=== PATIENT | female | born 1945 | race Caucasian/White ===

== ENCOUNTER 2017-02-26 15:02 | Emergency (ER) | payer MEDICARE, MEDICAID ==
[2017-02-26 15:18] VITALS: BP 140/68
--- NOTE | 2017-02-26 15:30 | UC ---
General HPI - HPI Summary HPI Summary: complaint of small rash on abdomen was outside all day and then noticed a tick stuck to abdomen this morning removed tick and was worried that the head was still in skin hx of lyme disease so she is very anxious that she may get it again - History of Current Complaint Chief Complaint: ROBkin Stated Complaint: INSECT BITE Time Seen by Provider: 02/26/17 15:20 Hx Obtained From: Patient - Allergy/Home Medications Allergies/Adverse Reactions: Allergies Allergy/AdvReac Type Severity Reaction Status Date / Time Albuterol Allergy Agitation Verified 02/26/17 15:13 Penicillins Allergy Unknown Verified 02/26/17 15:13 Reaction Details Sulfa Antibiotics Allergy Vomiting Verified 02/26/17 15:13 Home Medications: Home Medications ALPRAZolam TAB* [Xanax TAB*] 0.5 mg PO TID PRN 02/26/17 [History Confirmed 02/26] Aspirin [Aspirin 81 MG TAB] 81 mg PO DAILY 02/26/17 [History Confirmed 02/26/17] Levothyroxine TAB* [Synthroid 88 MCG TAB*] 88 mcg PO DAILY 02/26/17 [History Confirmed 02/26/17] Loratadine [Claritin 10 MG CAP] 10 mg PO DAILY 02/26/17 [History Confirmed 02/26] Multivitamins/Minerals TAB* [Theragran/minerals TAB*] 1 tab PO DAILY 02/26/17 [ History Confirmed 02/26/17] Omeprazole CAP* [Prilosec CAP* 20 MG] 40 mg PO DAILY 02/26/17 [History Confirmed 02/26/17] Sitagliptin/Metform 50/500(NF) [Janumet 50/500 (NF)] 1 tab PO DAILY 02/26/17 [ History Confirmed 02/26/17] PMH/Surg Hx/FS Hx/Imm Hx Previously Healthy: Yes Endocrine History: Diabetes, Hypothyroidism, Dyslipidemia - Surgical History Surgical History: Yes Surgery Procedure, Year, and Place: Appy. left knee - Family History Known Family History: Negative: Cardiac Disease, Hypertension, Diabetes - Social History Occupation: Employed Full-time Lives: With Family Alcohol Use: Rare Substance Use Type: None Smoking Status (MU): Never Smoked Tobacco - Immunization History Most Recent Tetanus Shot: 01/22/15 Review of Systems Constitutional: Negative Skin: Rash Eyes: Negative ENT: Negative Respiratory: Negative Cardiovascular: Negative Gastrointestinal: Negative Genitourinary: Negative Motor: Negative Neurovascular: Negative Musculoskeletal: Negative Neurological: Negative Psychological: Negative All Other Systems Reviewed And Are Negative: Yes Physical Exam Triage Information Reviewed: Yes Appearance: No Pain Distress, Well-Nourished Vital Signs: Initial Vital Signs Temp 97.7 F 02/26/17 15:08 Pulse 91 02/26/17 15:08 Resp 16 02/26/17 15:08 BP 140/68 02/26/17 15:08 Pulse Ox 98 02/26/17 15:08 Vital Signs Reviewed: Yes Eyes: Positive: Conjunctiva Clear ENT: Positive: Pharynx normal, TMs normal Neck: Positive: No Lymphadenopathy Respiratory: Positive: Lungs clear, Normal breath sounds, No respiratory distress Cardiovascular: Positive: RRR, No Murmur, Pulses Normal Abdomen Description: Positive: Nontender, Soft Bowel Sounds: Positive: Present Musculoskeletal: Positive: No Edema Neurological: Positive: Alert Psychological Exam: Normal Skin: Positive: Other - abdomen- 3x3cm erythematous flat rash surrounding tick bite site- no tick parts remain in wound 1x2cm area of erythema flat rash surrounding insect bite Course/Dx - Course Course Of Treatment: exam completed. will give doxycycline as prophylactic prevention of lyme disease - Differential Dx - Multi-Symptom Provider Diagnoses: tick bite. elevated blood pressure Discharge - Discharge Plan Condition: Stable Disposition: HOME Prescriptions: DOXYcycline CAP(*) [DOXYcycline 100MG CAP(*)] 100 mg PO DAILY #2 cap Patient Education Materials: Tick Bite (ED) Referrals: Aishwarya Cheung NP [Primary Care Provider] - Additional Instructions: Please start antibiotic as directed Increase fluids and rest Take acetaminophen or ibuprofen for fever or pain Please review your discharge instructions. If your symptoms do not improve please call your primary care provider or return to urgent care. Your blood pressure is elevated. Please contact your primary care provider within 1 -4 weeks for further evaluation
== END 2017-02-26 15:45 | disposition home or self-care (01) ==
LOC: UCCORT 15:02
DX: S30.861A Insect bite (nonvenomous) of abdominal wall, initial encounter (principal); W57.XXXA Bitten or stung by nonvenomous insect and other nonvenomous arthropods, initial encounter; Y92.9 Unspecified place or not applicable; E11.9 Type 2 diabetes mellitus without complications; E03.9 Hypothyroidism, unspecified; E78.5 Hyperlipidemia, unspecified
CPT/HCPCS: 99212; G0463

== ENCOUNTER 2017-04-10 11:33 | Emergency (ER) | payer MEDICARE, MEDICAID ==
[2017-04-10 12:02] VITALS: BP 130/54
--- NOTE | 2017-04-10 12:36 | UC ---
Lower Extremity/Ankle HPI - HPI Summary HPI Summary: 71 yo female with right calf pain x 6 days no trauma no recent travel no cp or sob - History of Current Complaint Chief Complaint: UCLowerExtremity Stated Complaint: RIGHT LEG PAIN-CALF X6 DAYS Time Seen by Provider: 04/10/17 12:19 Hx Obtained From: Patient Onset/Duration: Gradual Onset, Lasting Days - 6 Severity Initially: Mild Severity Currently: Moderate Pain Intensity: 6 Pain Scale Used: 0-10 Numeric Aggravating Factor(s): Nothing Alleviating Factor(s): Nothing Able to Bear Weight: Yes - Allergies/Home Medications Allergies/Adverse Reactions: Allergies Allergy/AdvReac Type Severity Reaction Status Date / Time Albuterol Allergy Agitation Verified 04/10/17 12:02 Penicillins Allergy Unknown Verified 04/10/17 12:02 Reaction Details Sulfa Antibiotics Allergy Vomiting Verified 04/10/17 12:02 grass mowing Allergy Swelling Uncoded 04/10/17 12:02 Of Face,Lips,& Throat Home Medications: Home Medications Methylcellulose (Laxative) [Fiber Therapy] 500 mg PO BID 04/10/17 [History Confirmed 04/10/17] PMH/Surg Hx/FS Hx/Imm Hx Previously Healthy: Yes Endocrine History: Diabetes - Surgical History Surgical History: Yes Surgery Procedure, Year, and Place: Appy. left knee - Family History Known Family History: Positive: Hypertension, Diabetes, Other - breast and colon Ca Negative: Cardiac Disease - Social History Alcohol Use: Rare Substance Use Type: None Smoking Status (MU): Former Smoker When Did the Patient Quit Smoking/Using Tobacco: 2009 - Immunization History Most Recent Tetanus Shot: 01/22/15 Review of Systems Constitutional: Negative Skin: Negative Eyes: Negative ENT: Negative Respiratory: Negative Cardiovascular: Negative Gastrointestinal: Negative Genitourinary: Negative Motor: Negative Neurovascular: Negative Musculoskeletal: Myalgia Neurological: Negative Psychological: Negative All Other Systems Reviewed And Are Negative: Yes Physical Exam Triage Information Reviewed: Yes Appearance: Well-Appearing, No Pain Distress, Well-Nourished Vital Signs: Initial Vital Signs Temp 99 F 04/10/17 11:54 Pulse 85 04/10/17 11:54 Resp 20 04/10/17 11:54 BP 130/54 04/10/17 11:54 Vital Signs Reviewed: Yes Eyes: Positive: Conjunctiva Clear ENT: Positive: Hearing grossly normal. Negative: Nasal congestion, Nasal drainage, Trismus, Muffled/hoarse voice Neck: Positive: Supple, Nontender Respiratory: Positive: Lungs clear, Normal breath sounds, No respiratory distress, No accessory muscle use Cardiovascular: Positive: RRR, No Murmur Musculoskeletal: Positive: ROM Intact, No Edema, Other: - right calf tenderness/ no redness/not warm/not swollen Neurological: Positive: Alert Psychological Exam: Normal Skin Exam: Normal Lower Extremity Course/Dx - Differential Dx/Diagnosis Provider Diagnoses: right calf pain of uncertain cause. ? bakers cyst Discharge - Discharge Plan Condition: Stable Disposition: HOME Patient Education Materials: Bakers Cyst (ED) Referrals: Aishwarya Cheung NP [Primary Care Provider] - 4 Days (if not better) Additional Instructions: NO BLOOD CLOT ice twice daily ibuprofen as needed for pain
--- NOTE | 2017-04-10 13:36 | RAD ---
Indication: Right leg pain.. Duplex Doppler sonography of the deep venous system of the right lower extremity deep venous system was performed. Bilaterally the common femoral veins appear patent and compressible. Right proximal greater saphenous vein, proximal deep femoral vein, femoral vein, popliteal vein, posterior tibial veins and peroneal veins appear patent and compressible. Hypoechoic area in the popliteal fossa may represent a popliteal cyst measuring 3.1 x 0.6 x 0.8 cm. IMPRESSION: NO EVIDENCE OF DEEP VENOUS THROMBOSIS IS IDENTIFIED.
== END 2017-04-10 13:48 | disposition home or self-care (01) ==
LOC: UCCORT 11:33
DX: M79.661 Pain in right lower leg (principal); E11.9 Type 2 diabetes mellitus without complications; Z88.0 Allergy status to penicillin; Z88.2 Allergy status to sulfonamides; Z88.8 Allergy status to other drugs, medicaments and biological substances; Z87.891 Personal history of nicotine dependence
CPT/HCPCS: 99211; G0463

== ENCOUNTER 2017-05-09 16:03 | Emergency (ER) | payer MEDICARE, MEDICAID ==
[2017-05-09 16:24] VITALS: BP 103/60
--- NOTE | 2017-05-09 16:53 | UC ---
Skin Complaint HPI - HPI Summary HPI Summary: swelling of lips x 2 weeks ? allergic reaction to grass no wheezing , no sob, no tongue swelling - History of Current Complaint Chief Complaint: UCSkin Time Seen by Provider: 05/09/17 16:31 Stated Complaint: SKIN COMPLAINT Hx Obtained From: Patient Onset/Duration: Gradual Onset, Lasting Weeks - 2, Still Present Skin Exposure Onset/Duration: Weeks Ago - grass Timing: Constant Onset Severity: Moderate Current Severity: Moderate Location: Face - lips Character: Swelling, Redness, Painful Aggravating: Touch Alleviating: Nothing Associated Signs & Symptoms: Positive: Tenderness - Allergy/Home Medications Allergies/Adverse Reactions: Allergies Allergy/AdvReac Type Severity Reaction Status Date / Time Albuterol Allergy Agitation Verified 05/09/17 16:15 Penicillins Allergy Unknown Verified 05/09/17 16:15 Reaction Details Sulfa Antibiotics Allergy Vomiting Verified 05/09/17 16:15 grass mowing Allergy Swelling Uncoded 05/09/17 16:15 Of Face,Lips,& Throat Home Medications: Home Medications Lysine [l-Lysine] 600 mg PO DAILY 05/09/17 [History Confirmed 05/09/17] Review of Systems Constitutional: Negative Skin: Rash Eyes: Negative ENT: Negative Respiratory: Negative All Other Systems Reviewed And Are Negative: Yes PMH/Surg Hx/FS Hx/Imm Hx Endocrine History: Diabetes GI/ History: Gastroesophageal Reflux - Surgical History Surgical History: Yes Surgery Procedure, Year, and Place: Appy. left knee. hysterectomy - Family History Known Family History: Positive: Hypertension, Diabetes, Other - breast and colon Ca Negative: Cardiac Disease - Social History Alcohol Use: Rare Substance Use Type: None Smoking Status (MU): Former Smoker When Did the Patient Quit Smoking/Using Tobacco: 2009 - Immunization History Most Recent Influenza Vaccination: 05/05/17 Most Recent Tetanus Shot: 01/22/15 Physical Exam Triage Information Reviewed: Yes Appearance: Well-Appearing, No Pain Distress, Well-Nourished Vital Signs: Initial Vital Signs Temp 98.2 F 05/09/17 16:16 Pulse 82 05/09/17 16:16 Resp 16 05/09/17 16:16 BP 103/60 05/09/17 16:16 Pulse Ox 98 05/09/17 16:16 Vital Signs Reviewed: Yes Eyes: Positive: Conjunctiva Clear ENT: Positive: Normal ENT inspection, Hearing grossly normal, Pharynx normal, Other: - swelling of the upper and lower lips, tender, erythema, dry Respiratory Exam: Normal Respiratory: Positive: Chest non-tender, Lungs clear, Normal breath sounds Cardiovascular: Positive: RRR, No Murmur, Pulses Normal Course/Dx - Diagnoses Provider Diagnoses: allergic reaction Discharge - Discharge Plan Condition: Stable Disposition: HOME Prescriptions: Methylprednisolone [Medrol Dosepak 4 MG*] 0 mg PO .SEE EMILY INSTRUCTION #1 packet Patient Education Materials: General Allergic Reaction (ED) Referrals: Aishwarya Cheung NP [Primary Care Provider] - 5 Days
== END 2017-05-09 16:51 | disposition home or self-care (01) ==
LOC: UCCORT 16:03
DX: T78.40XA Allergy, unspecified, initial encounter (principal); E11.9 Type 2 diabetes mellitus without complications; K21.9 Gastro-esophageal reflux disease without esophagitis; Z88.0 Allergy status to penicillin; Z88.2 Allergy status to sulfonamides; Z87.891 Personal history of nicotine dependence
CPT/HCPCS: 99212; G0463

== ENCOUNTER 2018-06-10 07:42 | Emergency (ER) | payer MEDICAID, MEDICARE ==
[2018-06-10 07:57] VITALS: BP 157/58
[2018-06-10] MEDS ORDERED: Acetaminophen TAB* 325 MG PO ONE (08:10)
--- NOTE | 2018-06-10 08:22 | UC ---
FLU HPI - HPI Summary HPI Summary: Patient presents to urgent care reporting 3 days progressive body aches, postnasal drip, cough, right ear pain. Patient states saw her PCP on and was told it was allergies given a prescription for Flonase. Patient states Flonase is not making different. Patient has taken Tylenol, last dose yesterday. Patient states it helps but only for a short while. Patient reports tactile temperatures and chills but no documented fever. Patient denies bringing up sputum. Patient reports an occasional wheeze. Patient's son was diagnosed with pneumonia this week. Patient to get her flu vaccine in April. Patient does not smoke. Patient's medications reviewed this visit. - History of Current Complaint Chief Complaint: UCRespiratory Stated Complaint: ACHY Time Seen by Provider: 06/10/18 08:02 Hx Obtained From: Patient Onset/Duration: Gradual Onset Severity Currently: Moderate Severity Initially: Moderate Pain Intensity: 8 Pain Scale Used: 0-10 Numeric Associated Signs & Symptoms: Positive: Myalgia, Cough, Sore Throat, Nasal Congestion - Allergy/Home Medications Allergies/Adverse Reactions: Allergies Allergy/AdvReac Type Severity Reaction Status Date / Time albuterol Allergy Agitation Verified 06/10/18 07:53 Penicillins Allergy Unknown Verified 06/10/18 07:53 Reaction Details Sulfa (Sulfonamide Allergy Vomiting Verified 06/10/18 07:53 Antibiotics) grass mowing Allergy Swelling Uncoded 05/09/17 16:15 Of Face,Lips,& Throat Home Medications: Home Medications Fluticasone NASAL SPRAY 50MCG* [Flonase NASAL SPRAY 50MCG*] 2 spray BOTH NARES DAILY 06/10/18 [History Confirmed 06/10/18] PMH/Surg Hx/FS Hx/Imm Hx Previously Healthy: Yes Endocrine History: Hypothyroidism - Surgical History Surgical History: Yes Surgery Procedure, Year, and Place: [place]y. left knee. hysterectomy - Family History Known Family History: Positive: Hypertension, Diabetes, Other - breast and colon Ca Negative: Cardiac Disease - Social History Alcohol Use: Rare Substance Use Type: Prescribed Substance Use Comment - Amount & Last Used: xanax Smoking Status (MU): Former Smoker When Did the Patient Quit Smoking/Using Tobacco: 2009 - Immunization History Most Recent Influenza Vaccination: 05/05/17 Most Recent Tetanus Shot: 01/22/15 Review of Systems Constitutional: Fever, Chills ENT: Sinus Congestion Respiratory: Cough Musculoskeletal: Myalgia All Other Systems Reviewed And Are Negative: Yes Physical Exam - Summary Physical Exam Summary: Vital Signs Reviewed: Yes A+Ox3, no distress Eyes: Conjunctiva Clear, NOHELIA. EOM intact and full ENT: Hearing grossly normal mild serous fluid right ear, no erythema, no buldge , left TM wnl, turbinates inflammed and boggy, + PND. mmoist, uvula midline, no exudate, no erythema Neck: Positive: Supple Respiratory: Positive: No respiratory distress, No accessory muscle use, few scattered wheeze no increased WOB, occasional cough Cardiovascular: RRR nl s1, s2 no m/r CBT <2 sec abd soft + BS nt/nd no guarding, no distension Musculoskeletal Exam: DANG x 4 without difficulty Strength Intact, ROM Intact Neurological: Positive: Alert, + sensation throughout Psychological: Positive: Normal Response To Family Skin: Positive: no rash, no ecchymosis Triage Information Reviewed: Yes Vital Signs: Initial Vital Signs Temp 99.8 F 06/10/18 07:53 Pulse 104 06/10/18 07:53 Resp 16 06/10/18 07:53 BP 157/58 06/10/18 07:53 Pulse Ox 96 06/10/18 07:53 Diagnostics - Radiology No standard instances Radiology Interpretation Completed By: Radiologist - Patient Name: TIFFANIE RAJPUT Medical Record#: [id number] Ordering Physician: Toshia De La O MD Acct.#: [id number] : 1945 Age: 72 Sex: F Location: [facility] Exam Date: 06/10/18808 ADM Status: REG ER Order Information: CHEST PA & LAT 2 VWS Accession Number: [id number] CPT: 27592 INDICATION: Congestion and fever. Body aches. Chills. COMPARISON: March 17, 2010 TECHNIQUE: Dual energy PA and routine lateral views of the chest were obtained. REPORT: Elevated lung volumes and both diffuse mild prominence of the interstitial markings and patchy rarefaction of the mid to upper lung zone interstitial markings. No focal pulmonary lesion, compelling alveolar consolidation, pleural effusion, pneumothorax. The heart, pulmonary vasculature, and mediastinal contours are unremarkable. IMPRESSION: #. Stigmata of obstructive lung disease. No acute pulmonary or cardiac process evident. <Electronically signed by Dickson Valadez MD in [place]> [id number] Dictated By: Dickson Valadez MD Dictated Date/Time: 06/10/18839 Transcribed Date/Time: 06/10/18836 Copy to: CC:Toshia De La O MD; Aishwarya Cheung NP Imaging - [facility] - [facility] [address] [place] [id number] [address] [address] ph ([phone]) ph ([phone]) ph ([phone]) This report is only to be considered final once signed by the Provider(s) as displayed in the "< Electronically Signed by >" field (s). Absence of a signature indicates the report is in a draft status and still needs to be finalized. In the event this document was created by someone other than the signing Provider, the individual initiating the document will be listed in the "Entered by:" or "Dictated by:" putnam. 1 of 1 Re-Evaluation - Re-Evaluation First Eval Comment: Reviewed with CxR Pt reports remote h/o tobacco use, h/o second hand exposure. d/w pt virus - supportive treatment. pt take Loratadine. Pt refuse any cough suppressants, decongestant second to taste. d/w pt at length regarding Albuterol - Pt states MDI gets in my throat. Pt has not used an aerochamber. Will have nurse teaching. prednsione. continue loratadine. recommend otc meds. secretion precaution. return precaution Flu Course/Dx - Course Course Of Treatment: Patient presents with 3 days progressive body aches head congestion and nonproductive cough. Patient states she has fatigue. Patient's taken Tylenol with intermittent improvement of her body aches. Patient has not taken any antipyretics today. Patient does not take any other scil-kno-fykrlof medication because she doesn't like how it tastes. Patient saw her primary this week and was given Flonase which she stood has not made a difference and she used yesterday and Monday. Patient's son was diagnosed with pneumonia this week and she is concerned as what she has. Patient does not currently smoke. On exam patient with some sinus congestion and postnasal drip. Patient with serous fluid in her right ear. Patient also with scattered wheezes. Plan will be to check patient for flu, chest x-ray, she adamantly refusing DuoNeb and albuterol states she doesn't like how it makes her feel. This is noted to be this is an allergy but the patient says it just makes her anxious. Patient refusing treatment at this time. We'll give Tylenol. We'll reassess. Patient in agreement with plan. - Differential Dx/Diagnosis Provider Diagnoses: acute bronchits. URI Discharge - Sign-Out/Discharge Documenting (check all that apply): Patient Departure All imaging exams completed and their final reports reviewed: No Studies - Discharge Plan Condition: Stable Disposition: HOME Prescriptions: predniSONE TAB* [Deltasone 20 MG TAB*] 40 mg PO DAILY #10 tab Patient Education Materials: Upper Respiratory Infection (ED), Acute Bronchitis (ED) Referrals: Aishwarya Cheung B[employer]ER [Primary Care Provider] - Additional Instructions: - Stay well hydrated. Drink plenty of non-alcoholic, non-caffinated beverages - Okay to alternate ibuprofen (advil, Motrin) 400mg and tylenol every 3hours for pain. Take with food. do NOT take for more than 4-5 days - continue taking Loratadine as prescribed - Take prednisone daily as prescribed - Use your inhaler, 2 puffs, every 4 hours today and tomorrow and then as needed - These infections are spread by oral secretions. Do not share eating or drinking utensils. Frequent hand washing is important. Clean items that may get your secretions on them such as cell phones, ipads, computer mouse, television remotes. Once you start to feel better, change your pillowcase and your toothbrush. It may take 7-10days until you are feeling markedly improved - It is recommended you take over the counter cough medication such as Robittusin - Contact your doctor for a follow-up appointment this week - Billing Disposition and Condition Condition: STABLE Disposition: Home
--- NOTE | 2018-06-10 08:43 | RAD ---
INDICATION: Congestion and fever. Body aches. Chills. COMPARISON: March 17, 2010 TECHNIQUE: Dual energy PA and routine lateral views of the chest were obtained. REPORT: Elevated lung volumes and both diffuse mild prominence of the interstitial markings and patchy rarefaction of the mid to upper lung zone interstitial markings. No focal pulmonary lesion, compelling alveolar consolidation, pleural effusion, pneumothorax. The heart, pulmonary vasculature, and mediastinal contours are unremarkable. IMPRESSION: #. Stigmata of obstructive lung disease. No acute pulmonary or cardiac process evident.
[2018-06-10] MEDS ORDERED: Albuterol HFA INHALER* 8 gm MDI INH ONE (08:56)
== END 2018-06-10 09:22 | disposition home or self-care (01) ==
LOC: UCCORT 07:42
DX: J20.9 Acute bronchitis, unspecified (principal); J06.9 Acute upper respiratory infection, unspecified; Z88.0 Allergy status to penicillin; Z88.8 Allergy status to other drugs, medicaments and biological substances; Z88.1 Allergy status to other antibiotic agents; Z87.891 Personal history of nicotine dependence
CPT/HCPCS: 71046; 99213; A9270-GY; G0463

== ENCOUNTER 2018-06-13 13:14 | Emergency (ER) | payer MEDICARE ==
--- OUTSIDE RECORDS SUMMARY | 2018-06-13 13:31 | XMS REPORT ---
:1945 External Reference #:[id number] Author Organization [facility] Address [address] [address] Phone [phone] Care Team Providers Name Role Phone Aishwarya Cheung NSkyler Care Team Information Manager Culture Unavailable Payers Type Date Identification Numbers Payment Provider Subscriber Medicare Primary Effective: Policy Number: Medicare Sil Nielson 2011 [id number] [place] [facility] Name: [facility] [address] PayID: [id number] [place] [address] Problems Date Description Provider Status Onset: 05/26/2014 Pure hypercholesterolemia Aishwarya Cheung, N.P. Active Onset: 05/26/2014 Hypothyroidism Aishwarya Cheung, N.PAgueda Active Onset: 11/19/2014 Type 2 diabetes mellitus Active Onset: 02/25/2016 Gastroesophageal reflux disease Aishwarya Cheung, N.P. Active Onset: 05/26/2016 Anxiety Aishwarya Cheung, N.P. Active Family History Date Family Member(s) Problem(s) Comments Father Diabetes, Adult Father due to [place] () Mother Diabetes, Adult Mother due to Heart Disease () Mother Pacemaker Mother due to Diabetes () First Son Diabetes, Adult First Brother due to Diabetes () Second Brother [place] First Sister due to Diabetes () Second Sister Cancer, Breast Social History Type Date Description Comments Marital Status 08/25/15 Lives With grandaughter Occupation Retired [employer] Smoking Patient is a former smoker Allergies, Adverse Reactions, Alerts Date Description Reaction Status Severity Comments 05/26/2014 Penicillin active 05/26/2014 Sulfa Drugs Nausea and Vomiting, active VOMITING 05/26/2014 Wellbutrin active Personality Changed. Medications Medication Date Status Form Strength Qnty SIG Indications Ordering Provider Shingrix 06/07/ Active Suspension 50mcg Jonatan, 2017 Rec Masanyle, N.P. Ibuprofen 01/12/ Active Tablets 800mg 30tabs 1 by Jonatan, 2017 mouth two Masanyle, times a N.P. day with food prn pain Loratadine 02/21/ Active Tablets 10mg 30tabs Take One Jonatan, 2016 Tablet By Aishwarya, Mouth N.P. Every Day Janumet XR 09/24/ Active Tablets ER 50-500mg 30tabs Take One Joantan, 2015 24HR Tablet By Masmarquis, Mouth N.P. Every Day Alprazolam 08/18/ Active Tablets 0.5mg 90tabs 1 by Jonatan, 2014 mouth Masanyle, three N.P. times a day as needed anxiety Levothyroxine 10/21/ Active Tablets 88mcg 90tabs Take One Jonatan 2014 Tablet By Aishwarya, Mouth N.P. Every Day On Empty Stomach Omeprazole 05/26/ Active Capsules DR 40mg 30caps 1 by Jonatan, 2013 mouth Mashelle, every day N.P. Aspirin 05/26/ Active Chewtabs 81mg 1 by Jonatan, 2013 mouth Mashelle, every day N.P. Multi Vitamin 05/26/ Active Tablets Jonatan, Daily 2013 Aishwarya, N.P. Zithromax Z-Leonard 12/05/ Hx Tablets 250mg 1tabs as Jonatan 2017 - directed Mashelle, 01/12/ N.P. 2018 Ibuprofen 11/21/ Hx Tablets 800mg 40tabs 1 by Jonatan, 2016 - mouth Mashelle, 05/25/ three N.P. 2017 times a day with food prn pain Azithromycin 09/09/ Hx Tablets 250mg 6tabs 2 by Jonatan 2016 - mouth day Mashelle, 11/16/ one then N.P. 2016 1 by mouth every day x 4 days Clotrimazole/Be 04/26/ Hx Cream 1-0.05% 45gm apply to Jonatan tamethasone 2015 - [facility] Dipropionate 04/26/ area N.P. 2015 three times a day as directed Clotrimazole 04/26/ Hx Cream 1% 30gm apply to Jonatan, 2015 - affected Mashelle, 07/05/ area tid N.P. 2016 Zithromax Z-Leonrad 08/18/ Hx Tablets 250mg 1tabs as Jonatan 2014 - directed Aishwarya, 02/24/ N.P. 2016 Meclizine HCL 07/15/ Hx Tablets 25mg 21tabs 1 by Jonatan, 2014 - mouth Alexle, 02/24/ three N.P. 2016 times a day Onglyza 10/31/ Hx Tablets 5mg 30tabs Take One Jonatan 2014 - Tablet By Aishwarya, 09/24/ Mouth N.P. 2016 Every Day Tradjenta 10/21/ Hx Tablets 5mg 30tabs 1 by Jonatan, 2014 - mouth Aishwarya, 10/31/ every day N.P. 2014 Anaprox DS 10/20/ Hx Tablets 550mg 30tabs 1 by Jonatan, 2014 - mouth Aishwarya, 05/05/ every 12 N.P. 2015 hour with food Zithromax Z-Leonard 10/20/ Hx Tablets 250mg 1tabs as Jonatan 2014 - directed Aishwarya, 11/19/ N.P. 2014 Metformin HCL 09/25/ Hx Tablets ER 500mg 100tab Take One Jonatan ER 2014 - 24HR s Tablet By Aishwarya, 09/24/ Mouth N.P. 2016 Twice A Day Zoloft 07/28/ Hx Tablets 25mg 30tabs 1 by Jonatan, 2013 - mouth q Aishwarya, 08/07/ hs N.P. 2013 Levothyroxine 05/26/ Hx Tablets 75mcg 90tabs 1 by Ovi Cheung 2013 - mouth Aishwarya, 10/21/ every day N.P. 2014 Lovastatin 05/26/ Hx Tablets 10mg 90tabs 1 by Jonatan 2013 - mouth Aishwarya, 05/26/ every day N.P. 2013 Metformin HCL 05/26/ Hx Tablets 500mg 100tab take one Jonatan 2013 - s tablet by Aishwarya, 09/25/ mouth N.P. 2015 twice a day Alprazolam 05/26/ Hx Tablets 0.25mg 90tabs 1 three Jonatan, 2013 - times a Aishwarya, 08/18/ day as N.P. 2015 needed anxiety Immunizations CPT Code Status Date Vaccine Reaction Lot # [id number] Given 06/07/2018 Influenza Vac, 3 Yrs & Older, Quadrivalent, [place] [address] Given 05/01/2017 Influenza Vac, 3 Yrs & Older, Quadrivalent, Split, [place] Use 61063 Given 04/29/2017 Influenza Vac, 3 Yrs & Older, Quadrivalent, Split, Im Use Q2038 Given 05/02/2016 Fluzone Trivalent Immunization KMV GAVE Q2038 Given 05/04/2015 Fluzone Trivalent Immunization 09793 Given 01/22/2015 Tdap (Adacel) Ages 7 And Above Only [id number] Given 06/26/2014 Pneumococcal 23 Immunization Adult Or [id number] Immunosuppressed Patient 77639 Given 05/09/2014 Afluria Or Fluvirin Flu Vac Intramuscular 46093 Given 07/09/2007 Pneumococcal 23 Immunization Adult Or Immunosuppressed Patient 47011 Given 02/21/2007 Prevnar 13 Pneumococal Conjugate Vaccine Vital Signs Date Vital Result Comment 06/07/2018 Body Temperature 99.0 F Weight 138.25 lb Heart Rate 88 /min BP Systolic 130 mmHg BP Diastolic 63 mmHg Height 63.5 inches 5'3.50" O2 % BldC Oximetry 94 % BMI (Body Mass Index) 24.1 kg/m2 03/02/2018 Body Temperature 98.1 F Weight 139.38 lb Heart Rate 77 /min BP Systolic 113 mmHg BP Diastolic 67 mmHg O2 % BldC Oximetry 97 % 01/12/2018 Body Temperature 98.6 F Weight 135.00 lb Heart Rate 89 /min BP Systolic 130 mmHg BP Diastolic 69 mmHg O2 % BldC Oximetry 95 % 12/05/2017 Body Temperature 98.4 F Weight 132.00 lb Heart Rate 99 /min BP Systolic 127 mmHg BP Diastolic 70 mmHg O2 % BldC Oximetry 95 % 11/24/2017 Body Temperature 97.0 F Weight 138.12 lb Heart Rate 95 /min BP Systolic 138 mmHg BP Diastolic 67 mmHg Height 63.50 inches 5'3.50" O2 % BldC Oximetry 95 % BMI (Body Mass Index) 24.1 kg/m2 08/25/2017 Body Temperature 97.7 F Weight 138.00 lb Heart Rate 93 /min BP Systolic 144 mmHg BP Diastolic 79 mmHg O2 % BldC Oximetry 96 % 05/25/2017 Body Temperature 98.2 F Weight 137.00 lb Heart Rate 91 /min BP Systolic 120 mmHg BP Diastolic 70 mmHg O2 % BldC Oximetry 97 % 05/15/2017 Body Temperature 97.9 F Weight 135.00 lb Heart Rate 100 /min BP Systolic 123 mmHg BP Diastolic 77 mmHg O2 % BldC Oximetry 98 % 02/21/2017 Body Temperature 97.3 F Weight 137.00 lb Heart Rate 82 /min BP Systolic 123 mmHg BP Diastolic 70 mmHg Height 63.5 inches 5'3.50" O2 % BldC Oximetry 95 % BMI (Body Mass Index) 23.9 kg/m2 02/06/2017 Body Temperature 97.5 F Weight 137.00 lb Heart Rate 92 /min BP Systolic 134 mmHg BP Diastolic 73 mmHg O2 % BldC Oximetry 95 % 11/21/2016 Body Temperature 98.1 F Weight 135.12 lb Heart Rate 94 /min BP Systolic 130 mmHg BP Diastolic 69 mmHg Height 63.5 inches 5'3.50" O2 % BldC Oximetry 95 % BMI (Body Mass Index) 23.6 kg/m2 09/09/2016 Body Temperature 97.5 F Weight 137.00 lb Heart Rate 92 /min BP Systolic 132 mmHg BP Diastolic 77 mmHg O2 % BldC Oximetry 96 % 08/23/2016 Body Temperature 97.2 F Weight 137.00 lb Heart Rate 98 /min BP Systolic 123 mmHg BP Diastolic 69 mmHg O2 % BldC Oximetry 96 % 07/13/2016 Body Temperature 96.8 F Weight 137.00 lb Heart Rate 104 /min BP Systolic 128 mmHg BP Diastolic 73 mmHg O2 % BldC Oximetry 96 % 07/05/2016 Body Temperature 98.1 F Weight 137.50 lb Heart Rate 96 /min BP Systolic 112 mmHg BP Diastolic 60 mmHg O2 % BldC Oximetry 97 % 05/26/2016 Body Temperature 97.3 F Weight 135.19 lb Heart Rate 87 /min BP Systolic 126 mmHg BP Diastolic 73 mmHg O2 % BldC Oximetry 95 % 04/26/2016 Body Temperature 97.7 F Weight 139.25 lb Heart Rate 87 /min BP Systolic 108 mmHg BP Diastolic 62 mmHg 02/25/2016 Body Temperature 97.9 F Weight 145.25 lb Heart Rate 92 /min BP Systolic 116 mmHg BP Diastolic 69 mmHg O2 % BldC Oximetry 96 % 11/24/2015 Body Temperature 98.1 F Weight 138.00 lb Heart Rate 98 /min BP Systolic 115 mmHg BP Diastolic 64 mmHg 08/18/2015 Body Temperature 96.6 F Weight 133.50 lb Heart Rate 105 /min BP Systolic 136 mmHg BP Diastolic 66 mmHg O2 % BldC Oximetry 96 % 07/15/2015 Body Temperature 97.5 F Weight 139.25 lb Heart Rate 94 /min BP Systolic 122 mmHg BP Diastolic 64 mmHg O2 % BldC Oximetry 95 % 05/05/2015 Body Temperature 97.2 F Weight 140.25 lb Heart Rate 102 /min BP Systolic 128 mmHg BP Diastolic 65 mmHg O2 % BldC Oximetry 97 % 02/04/2015 Body Temperature 96.8 F Weight 140.50 lb Heart Rate 84 /min BP Systolic 123 mmHg BP Diastolic 66 mmHg O2 % BldC Oximetry 96 % 01/29/2015 Body Temperature 97.9 F Weight 142.00 lb Heart Rate 94 /min BP Systolic 117 mmHg BP Diastolic 67 mmHg O2 % BldC Oximetry 96 % 01/22/2015 Body Temperature 97.9 F Weight 143.00 lb Heart Rate 98 /min BP Systolic 117 mmHg BP Diastolic 67 mmHg O2 % BldC Oximetry 94 % 11/19/2014 Body Temperature 97.6 F Weight 145.12 lb Heart Rate 97 /min BP Systolic 135 mmHg BP Diastolic 68 mmHg 10/20/2014 Body Temperature 98.0 F Weight 145.38 lb Heart Rate 85 /min BP Systolic 114 mmHg BP Diastolic 65 mmHg O2 % BldC Oximetry 96 % 08/07/2014 Body Temperature 97.4 F Weight 143.00 lb Heart Rate 80 /min BP Systolic 116 mmHg BP Diastolic 68 mmHg 07/28/2014 Body Temperature 97.6 F Weight 144.25 lb Heart Rate 93 /min BP Systolic 117 mmHg BP Diastolic 66 mmHg O2 % BldC Oximetry 95 % 07/23/2014 Weight 146.50 lb Heart Rate 103 /min BP Systolic 140 mmHg BP Diastolic 70 mmHg 06/25/2014 Weight 142.25 lb Heart Rate 83 /min BP Systolic 126 mmHg BP Diastolic 66 mmHg O2 % BldC Oximetry 97 % 06/23/2014 Body Temperature 98.0 F Weight 145.00 lb Heart Rate 79 /min BP Systolic 116 mmHg BP Diastolic 70 mmHg O2 % BldC Oximetry 97 % 06/04/2014 Body Temperature 97.7 F Weight 145.25 lb Heart Rate 83 /min BP Systolic 142 mmHg BP Diastolic 68 mmHg 05/26/2014 Body Temperature 97.8 F Weight 144.50 lb Heart Rate 87 /min BP Systolic 126 mmHg BP Diastolic 72 mmHg Height 63.5 inches 5'3.50" O2 % BldC Oximetry 95 % BMI (Body Mass Index) 25.2 kg/m2 Results Test Date Test Result H/L Range Note Hemoglobin A1c 06/04/2018 Hemoglobin A1c 6.4 % High 4.1-5.9 1 Estimated Average Glucose Calc 137 mg/dL 71-140 1 Comprehensive Met Panel-[facility] 06/04/2018 Sodium 143 mmol/L 135-146 1, 2 Potassium 4.5 mmol/L 3.5-5.2 1 Chloride# 102 mmol/L 97-110 1, 3 Carbon Dioxide 31 mmol/L 24-34 1 Glucose 148 mg/dL High 70-105 1 BUN 14 mg/dL 6-26 1 Creatinine 0.8 mg/dL 0.5-1.4 1 Calcium 9.6 mg/dL 8.5-10.2 1 Total Protein 6.7 g/dL 6.0-8.0 1 Albumin 4.3 g/dL 3.6-4.9 1 Globulin 2.4 g/dL 2.0-3.5 1 A/G Ratio 1.8 Ratio 1.0-2.2 1 Total Bilirubin 0.4 mg/dL 0.1-1.3 1 Alkaline Phosphatase 46 U/L 24-140 1 Alt 27 U/L 3-42 1 Ast 24 U/L 8-42 1 Dominga Egfr >60 >60 1, 4 Non Dominga Egfr >60 >60 1, 5 Anion Gap 10 mmol/L 5-15 1, 6 Lipid 06/04/2018 Cholesterol 204 mg/dL High 50-199 1 Triglycerides 262 mg/dL High 30-200 1 HDL 38 mg/dL 35-85 1, 7 Chol/ HDL Ratio 5.4 ratio 3.7-5.6 1 VLDL 52 mg/dL High 2-29 1 LDL (Calc) 114 mg/dL High 20-99 1, 8 Laboratory test finding 06/04/2018 TSH 0.82 uIU/mL 0.35-4.94 1 Hemoglobin A1c 03/02/2018 Hemoglobin A1c 6.5 % High 4.1-5.9 9 Estimated Average Glucose Calc 140 mg/dL 71-140 9 Microalb/Creat Panel 02/26/2018 Creatinine, Urine 75.4 mg/dL 9 Microalb/Creat Urine 26.66 ug/mgCreat 0.00-30.00 9 Microalbumin 20.1 ug/ml High 0.0-20.0 9 Comprehensive Met Panel-[facility] 02/26/2018 Sodium 142 mmol/L 135-146 9, 10 Potassium 5.0 mmol/L 3.5-5.2 9 Chloride# 102 mmol/L 97-110 9, 11 Carbon Dioxide 31 mmol/L 24-34 9 Glucose 121 mg/dL High 70-105 9 BUN 15 mg/dL 6-26 9 Creatinine 0.9 mg/dL 0.5-1.4 9 Calcium 9.6 mg/dL 8.5-10.2 9 Total Protein 6.6 g/dL 6.0-8.0 9 Albumin 4.2 g/dL 3.6-4.9 9 Globulin 2.4 g/dL 2.0-3.5 9 A/G Ratio 1.8 Ratio 1.0-2.2 9 Total Bilirubin 0.7 mg/dL 0.1-1.3 9 Alkaline Phosphatase 43 U/L 24-140 9 Alt 18 U/L 3-42 9 Ast 21 U/L 8-42 9 Dominga Egfr >60 >60 9, 12 Non Dominga Egfr >60 >60 9, 13 Anion Gap 9 mmol/L 5-15 9, 14 Laboratory test finding 02/26/2018 TSH 2.37 uIU/mL 0.35-4.94 9 Lipid 02/26/2018 Cholesterol 235 mg/dL High 50-199 9 Triglycerides 198 mg/dL 30-200 9 HDL 46 mg/dL 35-85 9, 15 Chol/ HDL Ratio 5.1 ratio 3.7-5.6 9 VLDL 40 mg/dL High 2-29 9 LDL (Calc) 149 mg/dL High 20-99 9, 16 Comprehensive Met Panel-[facility] 11/21/2017 Sodium 146 mmol/L 135-146 17 Potassium 4.9 mmol/L 3.5-5.2 Chloride# 105 mmol/L 97-110 18 Carbon Dioxide 33 mmol/L 24-34 Glucose 143 mg/dL High 70-105 BUN 19 mg/dL 6-26 Creatinine 0.8 mg/dL 0.5-1.4 Calcium 9.6 mg/dL 8.5-10.2 Total Protein 7.0 g/dL 6.0-8.0 Albumin 4.4 g/dL 3.6-4.9 Globulin 2.6 g/dL 2.0-3.5 A/G Ratio 1.7 Ratio 1.0-2.2 Total Bilirubin 0.6 mg/dL 0.1-1.3 Alkaline Phosphatase 45 U/L 24-140 Alt 19 U/L 3-42 Ast 20 U/L 8-42 Dominga Egfr >60 >60 19 Non Dominga Egfr >60 >60 20 Anion Gap 8 mmol/L 5-15 21 Hemoglobin A1c 11/21/2017 Hemoglobin A1c 6.7 % High 4.1-5.9 Estimated Average Glucose Calc 146 mg/dL High 71-140 Laboratory test finding 11/21/2017 TSH 0.89 uIU/mL 0.35-4.94 Lipid 11/21/2017 Cholesterol 208 mg/dL High 50-199 Triglycerides 135 mg/dL 30-200 HDL 48 mg/dL 35-85 22 Chol/ HDL Ratio 4.3 ratio 3.7-5.6 VLDL 27 mg/dL 2-29 LDL (Calc) 133 mg/dL High 20-99 23 Comprehensive Met Panel-[facility] 08/22/2017 Sodium 145 mmol/L 135-146 9, 24 Potassium 4.4 mmol/L 3.5-5.2 9 Chloride# 105 mmol/L 97-110 9, 25 Carbon Dioxide 32 mmol/L 24-34 9 Glucose 125 mg/dL High 70-105 9 Creatinine 0.8 mg/dL 0.5-1.4 9 Calcium 9.2 mg/dL 8.5-10.2 9 Total Protein 6.1 g/dL 6.0-8.0 9 Albumin 4.1 g/dL 3.6-4.9 9 Globulin 2.0 g/dL 2.0-3.5 9 A/G Ratio 2.1 Ratio 1.0-2.2 9 Total Bilirubin 0.6 mg/dL 0.1-1.3 9 Alkaline Phosphatase 34 U/L 24-140 9 Alt 29 U/L 3-42 9 Ast 22 U/L 8-42 9 Dominga Egfr >60 >60 9, 26 Non Dominga Egfr >60 >60 9, 27 Anion Gap 8 mmol/L 7-16 9, 28 BUN 13 mg/dL 6-26 9 Hemoglobin A1c 08/22/2017 Hemoglobin A1c 6.6 % High 4.1-5.9 9 Estimated Average Glucose Calc 143 mg/dL High 71-140 9 Lipid 08/22/2017 Cholesterol 178 mg/dL 50-199 9 Triglycerides 144 mg/dL 30-200 9 HDL 45 mg/dL 35-85 9, 29 Chol/ HDL Ratio 3.9 ratio 3.7-5.6 9 VLDL 29 mg/dL 2-29 9 LDL (Calc) 104 mg/dL High 20-99 9, 30 Laboratory test finding 08/22/2017 TSH 1.92 uIU/mL 0.35-4.94 9 Comprehensive Met Panel-[facility] 05/22/2017 Sodium 143 mmol/L 135-146 31, 32 Potassium 4.7 mmol/L 3.5-5.2 31 Chloride# 103 mmol/L 97-110 31, 33 Carbon Dioxide 30 mmol/L 24-34 31 Glucose 129 mg/dL High 70-105 31 BUN 14 mg/dL 6-26 31 Creatinine 0.8 mg/dL 0.5-1.4 31 Calcium 9.3 mg/dL 8.5-10.2 31 Total Protein 6.5 g/dL 6.0-8.0 31 Albumin 4.1 g/dL 3.6-4.9 31 Globulin 2.4 g/dL 2.0-3.5 31 A/G Ratio 1.7 Ratio 1.0-2.2 31 Total Bilirubin 0.6 mg/dL 0.1-1.3 31 Alkaline Phosphatase 38 U/L 24-140 31 Alt 24 U/L 3-42 31 Ast 21 U/L 8-42 31 Dominga Egfr >60 >60 31, 34 Non Dominga Egfr >60 >60 31, 35 Anion Gap 10 mmol/L 7-16 31, 36 Hemoglobin A1c 05/22/2017 Hemoglobin A1c 6.8 % High 4.1-5.9 31 Estimated Average Glucose Calc 148 High 71-140 31 Laboratory test finding 05/22/2017 TSH 2.43 uIU/mL 0.35-4.94 31 Laboratory test finding 02/17/2017 TSH 1.55 uIU/mL 0.35-4.94 37 Lipid Treatment 02/17/2017 Cholesterol 208 mg/dL High 50-199 37 Triglycerides 165 mg/dL 30-200 37 HDL 47 mg/dL 35-85 37, 38 Chol/ HDL Ratio 4.5 ratio 3.7-5.6 37 VLDL 33 mg/dL High 2-29 37 LDL (Calc) 128 mg/dL High 20-99 37, 39 Alt 17 U/L 3-42 37 Ast 18 U/L 8-42 37 Comprehensive Metabolic ([facility]) 02/17/2017 Sodium 144 mmol/L 135-146 37, 40 Potassium 5.1 mmol/L 3.5-5.2 37 Chloride# 103 mmol/L 97-110 37, 41 Carbon Dioxide 32 mmol/L 24-34 37 Glucose 122 mg/dL High 70-105 37 BUN 15 mg/dL 6-26 37 Creatinine 1.0 mg/dL 0.5-1.4 37 Calcium 9.9 mg/dL 8.5-10.2 37 Total Protein 6.4 g/dL 6.0-8.0 37 Albumin 4.1 g/dL 3.6-4.9 37 Globulin 2.3 g/dL 2.0-3.5 37 A/G Ratio 1.8 Ratio 1.0-2.2 37 Total Bilirubin 0.6 mg/dL 0.1-1.3 37 Alkaline Phosphatase 41 U/L 24-140 37 Alt 17 U/L 3-42 37 Ast 18 U/L 8-42 37 Dominga Egfr >60 >60 37, 42 Non Dominga Egfr 57 Low >60 37, 43 Anion Gap 14 mmol/L 7-16 37, 44 Hemoglobin A1c 02/17/2017 Hemoglobin A1c 6.2 % High 4.1-5.9 37 Estimated Average Glucose Calc 131 71-140 37 Laboratory test finding 11/18/2016 Hemoglobin A1c 6.2 % High 4.1-5.9 45 Comprehensive Metabolic 11/18/2016 Sodium 143 mmol/L 135-146 45, 46 ([facility]) Potassium 4.8 mmol/L 3.5-5.2 45 Chloride# 101 mmol/L 97-110 45, 47 Carbon Dioxide 32 mmol/L 24-34 45 Glucose 132 mg/dL High 70-105 45 BUN 15 mg/dL 6-26 45 Creatinine 0.9 mg/dL 0.5-1.4 45 Calcium 9.9 mg/dL 8.5-10.2 45 Total Protein 6.9 g/dL 6.0-8.0 45 Albumin 4.5 g/dL 3.6-4.9 45 Globulin 2.4 g/dL 2.0-3.5 45 A/G Ratio 1.9 Ratio 1.0-2.2 45 Total Bilirubin 0.7 mg/dL 0.1-1.3 45 Alkaline Phosphatase 43 U/L 24-140 45 Alt 19 U/L 3-42 45 Ast 20 U/L 8-42 45 Dominga Egfr >60 >60 45, 48 Non Dominga Egfr >60 >60 45, 49 Anion Gap 15 mmol/L 7-16 45, 50 Lipid 11/18/2016 Cholesterol 219 mg/dL High 50-199 45 Triglycerides 194 mg/dL 30-200 45 HDL 50 mg/dL 35-85 45, 51 Chol/ HDL Ratio 4.4 ratio 3.7-5.6 45 VLDL 39 mg/dL High 2-29 45 LDL (Calc) 130 mg/dL High 20-99 45, 52 Microalb/Creat Panel 11/18/2016 Creatinine, Urine 174.3 mg/dL 45 Microalb/Creat Urine 7.06 ug/mgCreat 0.00-30.00 45 Microalbumin 12.3 ug/ml 0.0-20.0 45 Laboratory test finding 11/18/2016 TSH 0.44 uIU/mL 0.35-4.94 45 Hepatitis C Virus Antibody NONREACTIVE Nonreactive 45 CBC 11/11/2016 White Blood Count 6.1 K/uL 3.1-10.7 53 Red Blood Count 4.30 M/uL 3.90-5.40 53 Hemoglobin 13.4 gm/dL 11.6-15.8 53 Hematocrit 39.1 % 36.0-46.1 53 Mean Cell Volume 90.9 fl 80.9-99.0 53 Mean Corpuscular HGB 31.2 pg 25.9-32.7 53 Mean Corpuscular HGB Conc 34.3 g/dL 30.8-34.3 53 Platelet Count 202 K/uL 150-400 53 Red Cell Distri Width %CV 13.4 % 11.7-14.4 53 Mean Platelet Volume 9.6 fL 8.9-12.4 53 Basic Metabolic Panel 11/11/2016 Glucose 122 mg/dL High 74-106 53 BUN 18 mg/dL 7-18 53 Creatinine 0.8 mg/dL 0.6-1.3 53 Glom Filtration Rate, Estimate >60 mL/min >60 53 If >60 mL/min >60 53, 54 BUN/Creat 22.5 ratio 53 Sodium 142 mmol/L 136-145 53 Potassium 4.2 mmol/L 3.5-5.1 53 Chloride 105 mmol/L 98-107 53 Carbon Dioxide 27 mmol/L 21-32 53 Anion Gap 10 mEq/L 8-16 53 Calcium 9.0 mg/dL 8.5-10.1 53 Laboratory test finding 08/18/2016 Hemoglobin A1c 6.2 % High 4.1-5.9 55 TSH 2.29 uIU/mL 0.35-4.94 55 Comprehensive Metabolic (CMP) 08/18/2016 Sodium 140 mmol/L 134-142 55 Potassium 4.9 mmol/L 3.5-5.2 55 Chloride 101 mmol/L 97-109 55 Carbon Dioxide 34 mmol/L 24-34 55 Glucose 122 mg/dL High 70-105 55 BUN 17 mg/dL 6-26 55 Creatinine 0.9 mg/dL 0.5-1.4 55 Calcium 9.7 mg/dL 8.5-10.2 55 Total Protein 6.9 g/dL 6.0-8.0 55 Albumin 4.3 g/dL 3.6-4.9 55 Globulin 2.6 g/dL 2.0-3.5 55 A/G Ratio 1.7 Ratio 1.0-2.2 55 Total Bilirubin 0.6 mg/dL 0.1-1.3 55 Alkaline Phosphatase 40 U/L 24-140 55 Alt 19 U/L 3-42 55 Ast 20 U/L 8-42 55 Anion Gap 10 mmol/L 6-14 55 Domn[place] Egfr >60 >60 55, 56 Non Dominga Egfr >60 >60 55, 57 Lipid 08/18/2016 Cholesterol 207 mg/dL High 50-199 55 Triglycerides 189 mg/dL 30-200 55 HDL 46 mg/dL 35-85 55, 58 Chol/ HDL Ratio 4.5 ratio 3.7-5.6 55 VLDL 38 mg/dL High 2-29 55 LDL (Calc) 123 mg/dL High 20-99 55, 59 Laboratory test finding 06/01/2016 Vitamin B12 1320 pg/mL High 180-914 55 Vit D,25 Hydroxy 57 ng/mL 31-100 55 Folate >23.8 ng/ml 5.9-24.8 55 Laboratory test finding 05/23/2016 TSH 1.74 uIU/mL 0.35-4.94 55 Hemoglobin A1c 6.3 % High 4.1-5.9 55 Lipid 05/23/2016 Cholesterol 185 mg/dL 50-199 55 Triglycerides 127 mg/dL 30-200 55 HDL 44 mg/dL 35-85 55, 60 Chol/ HDL Ratio 4.2 ratio 3.7-5.6 55 VLDL 25 mg/dL 2-29 55 LDL (Calc) 116 mg/dL High 20-99 55, 61 Comprehensive Metabolic ([facility]) 05/23/2016 Sodium 141 mmol/L 134-142 55 Potassium 5.1 mmol/L 3.5-5.2 55 Chloride 104 mmol/L 97-109 55 Carbon Dioxide 31 mmol/L 24-34 55 Glucose 120 mg/dL High 70-105 55 BUN 12 mg/dL 6-26 55 Creatinine 0.9 mg/dL 0.5-1.4 55 Calcium 9.5 mg/dL 8.5-10.2 55 Total Protein 6.4 g/dL 6.0-8.0 55 Albumin 4.1 g/dL 3.6-4.9 55 Globulin 2.3 g/dL 2.0-3.5 55 A/G Ratio 1.8 Ratio 1.0-2.2 55 Total Bilirubin 0.6 mg/dL 0.1-1.3 55 Alkaline Phosphatase 32 U/L 24-140 55 Alt 20 U/L 3-42 55 Ast 19 U/L 8-42 55 Anion Gap 11 mmol/L 6-14 55 Dominga Egfr >60 >60 55, 62 Non Dominga Egfr 60 Low >60 55, 63 Laboratory test finding 02/22/2016 TSH 1.81 uIU/mL 0.35-4.94 64 Comprehensive Metabolic ([facility]) 02/22/2016 Sodium 141 mmol/L 134-142 64 Potassium 4.8 mmol/L 3.5-5.2 64 Chloride 102 mmol/L 97-109 64 Carbon Dioxide 32 mmol/L 24-34 64 Glucose 128 mg/dL High 70-105 64 BUN 14 mg/dL 6-26 64 Creatinine 1.0 mg/dL 0.5-1.4 64 Calcium 9.7 mg/dL 8.5-10.2 64 Total Protein 6.7 g/dL 6.0-8.0 64 Albumin 4.1 g/dL 3.6-4.9 64 Globulin 2.6 g/dL 2.0-3.5 64 A/G Ratio 1.6 Ratio 1.0-2.2 64 Total Bilirubin 0.5 mg/dL 0.1-1.3 64 Alkaline Phosphatase 36 U/L 24-140 64 Alt 32 U/L 3-42 64 Ast 24 U/L 8-42 64 Anion Gap 12 mmol/L 6-14 64 Dominga Egfr >60 >60 64, 65 Non Dominga Egfr 56 Low >60 64, 66 Laboratory test finding 02/22/2016 Hemoglobin A1c 6.6 % High 4.1-5.9 64 Lipid 02/22/2016 Cholesterol 193 mg/dL 50-199 64 Triglycerides 193 mg/dL 30-200 64 HDL 43 mg/dL 35-85 64, 67 Chol/ HDL Ratio 4.5 ratio 3.7-5.6 64 VLDL 39 mg/dL High 2-29 64 LDL (Calc) 111 mg/dL High 20-99 64, 68 Laboratory test finding 11/19/2015 Hemoglobin A1c 6.3 % High 4.1-5.9 69 Comprehensive Metabolic ([facility]MP) 11/19/2015 Sodium 140 mmol/L 134-142 69 Potassium 4.7 mmol/L 3.5-5.2 69 Chloride 103 mmol/L 97-109 69 Carbon Dioxide 31 mmol/L 24-34 69 Glucose 132 mg/dL High 70-105 69 BUN 15 mg/dL 6-26 69 Creatinine 0.9 mg/dL 0.5-1.4 69 Calcium 9.3 mg/dL 8.5-10.2 69 Total Protein 6.4 g/dL 6.0-8.0 69 Albumin 4.0 g/dL 3.6-4.9 69 Globulin 2.4 g/dL 2.0-3.5 69 A/G Ratio 1.7 Ratio 1.0-2.2 69 Total Bilirubin 0.4 mg/dL 0.1-1.3 69 Alkaline Phosphatase 36 U/L 24-140 69 Alt 18 U/L 3-42 69 Ast 17 U/L 8-42 69 Anion Gap 11 mmol/L 6-14 69 [place] Egfr >60 >60 69, 70 Non [place] Egfr >60 >60 69, 71 Lipid 11/19/2015 Cholesterol 204 mg/dL High 50-199 69 Triglycerides 145 mg/dL 30-200 69 HDL 55 mg/dL 35-85 69, 72 Chol/ HDL Ratio 3.7 ratio 3.7-5.6 69 VLDL 29 mg/dL 2-29 69 LDL (Calc) 120 mg/dL High 20-99 69, 73 Laboratory test finding 11/19/2015 TSH 1.19 uIU/mL 0.35-4.94 69 Laboratory test finding 08/17/2015 Hemoglobin A1c 6.3 % High 4.1-5.9 69 Comprehensive Metabolic (CMP) 08/17/2015 Sodium 137 mmol/L 134-142 69 Potassium 4.5 mmol/L 3.5-5.2 69 Chloride 102 mmol/L 97-109 69 Carbon Dioxide 27 mmol/L 24-34 69 Glucose 110 mg/dL High 70-105 69 BUN 15 mg/dL 6-26 69 Creatinine 0.8 mg/dL 0.5-1.4 69 Calcium 9.4 mg/dL 8.5-10.2 69 Total Protein 6.5 g/dL 6.0-8.0 69 Albumin 4.2 g/dL 3.6-4.9 69 Globulin 2.3 g/dL 2.0-3.5 69 A/G Ratio 1.8 Ratio 1.0-2.2 69 Total Bilirubin 0.6 mg/dL 0.1-1.3 69 Alkaline Phosphatase 33 U/L 24-140 69 Alt 17 U/L 3-42 69 Ast 19 U/L 8-42 69 Anion Gap 13 mmol/L 6-14 69 [place] Egfr >60 >60 69, 74 Non [place] Egfr >60 >60 69, 75 Lipid 08/17/2015 Cholesterol 164 mg/dL 50-199 69 Triglycerides 154 mg/dL 30-200 69 HDL 38 mg/dL 35-85 69, 76 Chol/ HDL Ratio 4.3 ratio 3.7-5.6 69 VLDL 31 mg/dL High 2-29 69 LDL (Calc) 95 mg/dL 20-99 69, 77 Laboratory test finding 08/17/2015 TSH 1.45 uIU/mL 0.35-4.94 69 Comprehensive Metabolic (CMP) 04/30/2015 Sodium 139 mmol/L 134-142 69 Potassium 4.3 mmol/L 3.5-5.2 69 Chloride 101 mmol/L 97-109 69 Carbon Dioxide 33 mmol/L 24-34 69 Glucose 96 mg/dL 70-105 69 BUN 14 mg/dL 6-26 69 Creatinine 0.8 mg/dL 0.5-1.4 69 Calcium 9.5 mg/dL 8.5-10.2 69 Total Protein 6.4 g/dL 6.0-8.0 69 Albumin 4.2 g/dL 3.6-4.9 69 Globulin 2.2 g/dL 2.0-3.5 69 A/G Ratio 1.9 Ratio 1.0-2.2 69 Total Bilirubin 0.5 mg/dL 0.1-1.3 69 Alkaline Phosphatase 36 U/L 24-140 69 Alt 16 U/L 3-42 69 Ast 16 U/L 8-42 69 Anion Gap 9 mmol/L 6-14 69 [place] Egfr >60 >60 69, 78 Non [place] Egfr >60 >60 69, 79 Laboratory test finding 04/30/2015 TSH 1.81 uIU/mL 0.35-4.94 69 Hemoglobin A1c 6.2 % High 4.1-5.9 69 Lipid 04/30/2015 Cholesterol 196 mg/dL 50-199 69 Triglycerides 208 mg/dL High 30-200 69 HDL 40 mg/dL 35-85 69, 80 Chol/ HDL Ratio 4.9 ratio 3.7-5.6 69 VLDL 42 mg/dL High 2-29 69 LDL (Calc) 114 mg/dL High 20-99 69, 81 Laboratory test finding 01/19/2015 TSH 1.67 uIU/mL 0.35-4.94 69 Lipid 01/19/2015 Cholesterol 213 mg/dL High 50-199 69 Triglycerides 187 mg/dL 30-200 69 HDL 43 mg/dL 35-85 69, 82 Chol/ HDL Ratio 5.0 ratio 3.7-5.6 69 VLDL 37 mg/dL High 2-29 69 LDL (Calc) 133 mg/dL High 20-99 69, 83 Comprehensive Metabolic (CMP) 01/19/2015 Sodium 141 mmol/L 134-142 69 Potassium 4.6 mmol/L 3.5-5.2 69 Chloride 103 mmol/L 97-109 69 Carbon Dioxide 31 mmol/L 24-34 69 Glucose 121 mg/dL High 70-105 69 BUN 14 mg/dL 6-26 69 Creatinine 0.9 mg/dL 0.5-1.4 69 Calcium 9.7 mg/dL 8.5-10.2 69 Total Protein 7.0 g/dL 6.0-8.0 69 Albumin 4.4 g/dL 3.6-4.9 69 Globulin 2.6 g/dL 2.0-3.5 69 A/G Ratio 1.7 Ratio 1.0-2.2 69 Total Bilirubin 0.7 mg/dL 0.1-1.3 69 Alkaline Phosphatase 37 U/L 24-140 69 Alt 16 U/L 3-42 69 Ast 19 U/L 8-42 69 Anion Gap 12 mmol/L 6-14 69 Dominga Egfr >60 >60 69, 84 Non Dominga Egfr >60 >60 69, 85 Laboratory test finding 01/19/2015 Hemoglobin A1c 6.3 % High 4.1-5.9 69 Laboratory test finding 11/17/2014 TSH 1.66 uIU/mL 0.34-5.60 69 Comprehensive Metabolic (CMP) 10/20/2014 Sodium 141 mmol/L 134-142 69 Potassium 4.4 mmol/L 3.5-5.2 69 Chloride 100 mmol/L 97-109 69 Carbon Dioxide 33 mmol/L 24-34 69 Glucose 147 mg/dL High 70-105 69 BUN 16 mg/dL 6-26 69 Creatinine 0.9 mg/dL 0.5-1.4 69 Calcium 9.9 mg/dL 8.5-10.2 69 Total Protein 7.2 g/dL 6.0-8.0 69 Albumin 4.6 g/dL 3.6-4.9 69 Globulin 2.6 g/dL 2.0-3.5 69 A/G Ratio 1.8 Ratio 1.0-2.2 69 Total Bilirubin 0.7 mg/dL 0.1-1.3 69 Alkaline Phosphatase 41 U/L 24-140 69 Alt 24 U/L 3-42 69 Ast 23 U/L 8-42 69 Anion Gap 12 mmol/L 6-14 69 Dominga Egfr >60 >60 69, 86 Non Dominga Egfr >60 >60 69, 87 Lipid 10/20/2014 Cholesterol 234 mg/dL High 50-199 69 Triglycerides 256 mg/dL High 30-200 69 HDL 49 mg/dL 35-85 69, 88 Chol/ HDL Ratio 4.8 ratio 3.7-5.6 69 VLDL 51 mg/dL High 2-29 69 LDL (Calc) 134 mg/dL High 20-99 69, 89 Laboratory test finding 10/20/2014 TSH 5.70 uIU/mL High 0.34-5.60 69 Laboratory test finding 10/20/2014 Hemoglobin A1c 6.9 % High 4.1-5.9 69 Laboratory test finding 07/23/2014 Hemoglobin A1c 6.7 % High 4.1-5.9 90 TSH 1.45 uIU/mL 0.34-5.60 90 Comprehensive Metabolic (CMP) 06/23/2014 Sodium 140 mmol/L 134-142 91 Potassium 4.7 mmol/L 3.5-5.2 91 Chloride 102 mmol/L 97-109 91 Carbon Dioxide 32 mmol/L 24-34 91 Glucose 127 mg/dL High 70-105 91 BUN 14 mg/dL 6-26 91 Creatinine 0.8 mg/dL 0.5-1.4 91 Calcium 9.4 mg/dL 8.5-10.2 91 Total Protein 6.4 g/dL 6.0-8.0 91 Albumin 4.3 g/dL 3.6-4.9 91 Globulin 2.1 g/dL 2.0-3.5 91 A/G Ratio 2.0 Ratio 1.0-2.2 91 Total Bilirubin 0.5 mg/dL 0.1-1.3 91 Alkaline Phosphatase 35 U/L 24-140 91 Alt 19 U/L 3-42 91 Ast 18 U/L 8-42 91 Anion Gap 11 mmol/L 6-14 91 Dominga Egfr >60 >60 91, 92 Non Dominga Egfr >60 >60 91, 93 Laboratory test finding 06/23/2014 TSH 4.45 uIU/mL 0.34-5.60 91 Lipid 06/23/2014 Cholesterol 185 mg/dL 50-199 91 Triglycerides 141 mg/dL 30-200 91 HDL 43 mg/dL 35-85 91, 94 Chol/ HDL Ratio 4.3 ratio 3.7-5.6 91 VLDL 28 mg/dL 2-29 91 LDL (Calc) 114 mg/dL High 20-99 91, 95 CBC With Auto Diff 06/23/2014 WBC 4.7 K/uL 4.1-11.0 91 RBC 4.06 M/uL 4.00-5.40 91 Hemoglobin 12.6 gm/dL 12.0-16.0 91 Hematocrit 37.6 % 36.0-47.0 91 MCV 92.6 fL 80.0-97.0 91 MCH 31.1 pg 27.0-32.0 91 MCHC 33.6 g/dL 32.0-36.0 91 RDW 13.5 % 11.5-14.5 91 PLT Count 175 K/ul 140-400 91 Neutrophil 56.8 % 35.0-75.0 91 Lymphocyte 32.6 % 16.0-52.0 91 Monocyte 6.9 % 2.0-10.0 91 Eosinophil 2.6 % 0.0-5.0 91 Basophil 1.1 % 0.0-4.0 91 Abs Neutrophils 2.6 K/uL 2.1-8.0 91 Abs Lymphocytes 1.5 K/uL 0.8-5.5 91 Abmon 0.3 K/uL 0.1-1.0 91 Abs Eosinophils 0.1 K/uL 0.0-0.5 91 Abs Basophils 0.1 K/uL 0.0-0.3 91 1 This sample is drawn by:[email or web address] 2 Updated reference range on new analyzer 3 Updated reference range on new analyzer 4 Concerning GFR Guidelines for Americans: Normal function or mild renal disease, if clinically at risk: >/=60 mL/min Moderately decreased: 30-59 Severely decreased: 15-29 Renal failure: <15 5 Concerning GFR Guidelines: Normal function or mild renal disease, if clinically at risk: >/=60 mL/min Moderately decreased: 30-59 Severely decreased: 15-29 Renal failure: <15 Glomerular Filtration Rate (GFR) is estimated based on the MDRD equation, which assumes a steady state for creatinine as recommended by the National Kidney Disease Education Program in conjunction with the National Institutes of Health and the National Kidney Foundation. Clinical conditions in which it may be necessary to measure GFR by using clearance methods include extremes of age and body size, severe malnutrition or obesity, diseases of skeletal muscle, paraplegia or quadriplegia, vegetarian diet, rapidly changing kidney function, and calculation of the dose of potentially toxic drugs that are excreted by the kidneys. 6 Updated Reference Range 7 Per NCEP ATP III Guidelines: Results lower than 40 mg/dL are suggestive of increased risk for coronary artery disease. Results > or=to 60 mg/dL are considered a negative risk factor. 8 Per NCEP ATP III Guidelines: Normal Population <130 Patients with medical conditions: CHD/DM Optimal: <100 Borderline high: 130-159 High: 160-189 Very high: >189 9 This sample is drawn by:[email or web address] 10 Updated reference range on new analyzer 11 Updated reference range on new analyzer 12 Concerning GFR Guidelines for Americans: Normal function or mild renal disease, if clinically at risk: >/=60 mL/min Moderately decreased: 30-59 Severely decreased: 15-29 Renal failure: <15 13 Concerning GFR Guidelines: Normal function or mild renal disease, if clinically at risk: >/=60 mL/min Moderately decreased: 30-59 Severely decreased: 15-29 Renal failure: <15 Glomerular Filtration Rate (GFR) is estimated based on the MDRD equation, which assumes a steady state for creatinine as recommended by the National Kidney Disease Education Program in conjunction with the National Institutes of Health and the National Kidney Foundation. Clinical conditions in which it may be necessary to measure GFR by using clearance methods include extremes of age and body size, severe malnutrition or obesity, diseases of skeletal muscle, paraplegia or quadriplegia, vegetarian diet, rapidly changing kidney function, and calculation of the dose of potentially toxic drugs that are excreted by the kidneys. 14 Updated Reference Range 15 Per NCEP ATP III Guidelines: Results lower than 40 mg/dL are suggestive of increased risk for coronary artery disease. Results > or=to 60 mg/dL are considered a negative risk factor. 16 Per NCEP ATP III Guidelines: Normal Population <130 Patients with medical conditions: CHD/DM Optimal: <100 Borderline high: 130-159 High: 160-189 Very high: >189 17 Updated reference range on new analyzer 18 Updated reference range on new analyzer 19 Concerning GFR Guidelines for Americans: Normal function or mild renal disease, if clinically at risk: >/=60 mL/min Moderately decreased: 30-59 Severely decreased: 15-29 Renal failure: <15 20 Concerning GFR Guidelines: Normal function or mild renal disease, if clinically at risk: >/=60 mL/min Moderately decreased: 30-59 Severely decreased: 15-29 Renal failure: <15 Glomerular Filtration Rate (GFR) is estimated based on the MDRD equation, which assumes a steady state for creatinine as recommended by the National Kidney Disease Education Program in conjunction with the National Institutes of Health and the National Kidney Foundation. Clinical conditions in which it may be necessary to measure GFR by using clearance methods include extremes of age and body size, severe malnutrition or obesity, diseases of skeletal muscle, paraplegia or quadriplegia, vegetarian diet, rapidly changing kidney function, and calculation of the dose of potentially toxic drugs that are excreted by the kidneys. 21 Updated Reference Range 22 Per NCEP ATP III Guidelines: Results lower than 40 mg/dL are suggestive of increased risk for coronary artery disease. Results > or=to 60 mg/dL are considered a negative risk factor. 23 Per NCEP ATP III Guidelines: Normal Population <130 Patients with medical conditions: CHD/DM Optimal: <100 Borderline high: 130-159 High: 160-189 Very high: >189 24 Updated reference range on new analyzer 25 Updated reference range on new analyzer 26 Concerning GFR Guidelines for Americans: Normal function or mild renal disease, if clinically at risk: >/=60 mL/min Moderately decreased: 30-59 Severely decreased: 15-29 Renal failure: <15 27 Concerning GFR Guidelines: Normal function or mild renal disease, if clinically at risk: >/=60 mL/min Moderately decreased: 30-59 Severely decreased: 15-29 Renal failure: <15 Glomerular Filtration Rate (GFR) is estimated based on the MDRD equation, which assumes a steady state for creatinine as recommended by the National Kidney Disease Education Program in conjunction with the National Institutes of Health and the National Kidney Foundation. Clinical conditions in which it may be necessary to measure GFR by using clearance methods include extremes of age and body size, severe malnutrition or obesity, diseases of skeletal muscle, paraplegia or quadriplegia, vegetarian diet, rapidly changing kidney function, and calculation of the dose of potentially toxic drugs that are excreted by the kidneys. 28 Updated reference range on new analyzer 29 Per NCEP ATP III Guidelines: Results lower than 40 mg/dL are suggestive of increased risk for coronary artery disease. Results > or=to 60 mg/dL are considered a negative risk factor. 30 Per NCEP ATP III Guidelines: Normal Population <130 Patients with medical conditions: CHD/DM Optimal: <100 Borderline high: 130-159 High: 160-189 Very high: >189 31 This sample is drawn by: ANA 32 Updated reference range on new analyzer 33 Updated reference range on new analyzer 34 Concerning GFR Guidelines for Americans: Normal function or mild renal disease, if clinically at risk: >/=60 mL/min Moderately decreased: 30-59 Severely decreased: 15-29 Renal failure: <15 35 Concerning GFR Guidelines: Normal function or mild renal disease, if clinically at risk: >/=60 mL/min Moderately decreased: 30-59 Severely decreased: 15-29 Renal failure: <15 Glomerular Filtration Rate (GFR) is estimated based on the MDRD equation, which assumes a steady state for creatinine as recommended by the National Kidney Disease Education Program in conjunction with the National Institutes of Health and the National Kidney Foundation. Clinical conditions in which it may be necessary to measure GFR by using clearance methods include extremes of age and body size, severe malnutrition or obesity, diseases of skeletal muscle, paraplegia or quadriplegia, vegetarian diet, rapidly changing kidney function, and calculation of the dose of potentially toxic drugs that are excreted by the kidneys. 36 Updated reference range on new analyzer 37 This sample is drawn by:ARMIDA 38 Per NCEP ATP III Guidelines: Results lower than 40 mg/dL are suggestive of increased risk for coronary artery disease. Results > or=to 60 mg/dL are considered a negative risk factor. 39 Per NCEP ATP III Guidelines: Normal Population <130 Patients with medical conditions: CHD/DM Optimal: <100 Borderline high: 130-159 High: 160-189 Very high: >189 40 Updated reference range on new analyzer 41 Updated reference range on new analyzer 42 Concerning GFR Guidelines for Americans: Normal function or mild renal disease, if clinically at risk: >/=60 mL/min Moderately decreased: 30-59 Severely decreased: 15-29 Renal failure: <15 43 Concerning GFR Guidelines: Normal function or mild renal disease, if clinically at risk: >/=60 mL/min Moderately decreased: 30-59 Severely decreased: 15-29 Renal failure: <15 Glomerular Filtration Rate (GFR) is estimated based on the MDRD equation, which assumes a steady state for creatinine as recommended by the National Kidney Disease Education Program in conjunction with the National Institutes of Health and the National Kidney Foundation. Clinical conditions in which it may be necessary to measure GFR by using clearance methods include extremes of age and body size, severe malnutrition or obesity, diseases of skeletal muscle, paraplegia or quadriplegia, vegetarian diet, rapidly changing kidney function, and calculation of the dose of potentially toxic drugs that are excreted by the kidneys. 44 Updated reference range on new analyzer 45 This sample is drawn by: ARMIDA 46 Updated reference range on new analyzer 47 Updated reference range on new analyzer 48 Concerning GFR Guidelines for Americans: Normal function or mild renal disease, if clinically at risk: >/=60 mL/min Moderately decreased: 30-59 Severely decreased: 15-29 Renal failure: <15 49 Concerning GFR Guidelines: Normal function or mild renal disease, if clinically at risk: >/=60 mL/min Moderately decreased: 30-59 Severely decreased: 15-29 Renal failure: <15 Glomerular Filtration Rate (GFR) is estimated based on the MDRD equation, which assumes a steady state for creatinine as recommended by the National Kidney Disease Education Program in conjunction with the National Institutes of Health and the National Kidney Foundation. Clinical conditions in which it may be necessary to measure GFR by using clearance methods include extremes of age and body size, severe malnutrition or obesity, diseases of skeletal muscle, paraplegia or quadriplegia, vegetarian diet, rapidly changing kidney function, and calculation of the dose of potentially toxic drugs that are excreted by the kidneys. 50 Updated reference range on new analyzer 51 Per NCEP ATP III Guidelines: Results lower than 40 mg/dL are suggestive of increased risk for coronary artery disease. Results > or=to 60 mg/dL are considered a negative risk factor. 52 Per NCEP ATP III Guidelines: Normal Population <130 Patients with medical conditions: CHD/DM Optimal: <100 Borderline high: 130-159 High: 160-189 Very high: >189 53 CONSULT 11/08 [id number] S83.272 M71.8 54 Note: Persistent reduction for 3 months or more in an eGFR <60 mL/min/1.73 m2 defines CKD. Patients with eGFR values >/=60 mL/min/1.73 m2 may also have CKD if evidence of persistent proteinuria is present. The original MDRD equation for estimated GFR is not valid for patients less than 18 years of age. Additional information may be found at www.kdoqi.org. 55 This sample is drawn by:ECTOR/ARI 56 Concerning GFR Guidelines for Americans: Normal function or mild renal disease, if clinically at risk: >/=60 mL/min Moderately decreased: 30-59 Severely decreased: 15-29 Renal failure: <15 57 Concerning GFR Guidelines: Normal function or mild renal disease, if clinically at risk: >/=60 mL/min Moderately decreased: 30-59 Severely decreased: 15-29 Renal failure: <15 Glomerular Filtration Rate (GFR) is estimated based on the MDRD equation, which assumes a steady state for creatinine as recommended by the National Kidney Disease Education Program in conjunction with the National Institutes of Health and the National Kidney Foundation. Clinical conditions in which it may be necessary to measure GFR by using clearance methods include extremes of age and body size, severe malnutrition or obesity, diseases of skeletal muscle, paraplegia or quadriplegia, vegetarian diet, rapidly changing kidney function, and calculation of the dose of potentially toxic drugs that are excreted by the kidneys. 58 Per NCEP ATP III Guidelines: Results lower than 40 mg/dL are suggestive of increased risk for coronary artery disease. Results > or=to 60 mg/dL are considered a negative risk factor. 59 Per NCEP ATP III Guidelines: Normal Population <130 Patients with medical conditions: CHD/DM Optimal: <100 Borderline high: 130-159 High: 160-189 Very high: >189 60 Per NCEP ATP III Guidelines: Results lower than 40 mg/dL are suggestive of increased risk for coronary artery disease. Results > or=to 60 mg/dL are considered a negative risk factor. 61 Per NCEP ATP III Guidelines: Normal Population <130 Patients with medical conditions: CHD/DM Optimal: <100 Borderline high: 130-159 High: 160-189 Very high: >189 62 Concerning GFR Guidelines for Americans: Normal function or mild renal disease, if clinically at risk: >/=60 mL/min Moderately decreased: 30-59 Severely decreased: 15-29 Renal failure: <15 63 Concerning GFR Guidelines: Normal function or mild renal disease, if clinically at risk: >/=60 mL/min Moderately decreased: 30-59 Severely decreased: 15-29 Renal failure: <15 Glomerular Filtration Rate (GFR) is estimated based on the MDRD equation, which assumes a steady state for creatinine as recommended by the National Kidney Disease Education Program in conjunction with the National Institutes of Health and the National Kidney Foundation. Clinical conditions in which it may be necessary to measure GFR by using clearance methods include extremes of age and body size, severe malnutrition or obesity, diseases of skeletal muscle, paraplegia or quadriplegia, vegetarian diet, rapidly changing kidney function, and calculation of the dose of potentially toxic drugs that are excreted by the kidneys. 64 This sample is drawn by:KD/[employer]ULT[employer] 65 Concerning GFR Guidelines for Americans: Normal function or mild renal disease, if clinically at risk: >/=60 mL/min Moderately decreased: 30-59 Severely decreased: 15-29 Renal failure: <15 66 Concerning GFR Guidelines: Normal function or mild renal disease, if clinically at risk: >/=60 mL/min Moderately decreased: 30-59 Severely decreased: 15-29 Renal failure: <15 Glomerular Filtration Rate (GFR) is estimated based on the MDRD equation, which assumes a steady state for creatinine as recommended by the National Kidney Disease Education Program in conjunction with the National Institutes of Health and the National Kidney Foundation. Clinical conditions in which it may be necessary to measure GFR by using clearance methods include extremes of age and body size, severe malnutrition or obesity, diseases of skeletal muscle, paraplegia or quadriplegia, vegetarian diet, rapidly changing kidney function, and calculation of the dose of potentially toxic drugs that are excreted by the kidneys. 67 Per NCEP ATP III Guidelines: Results lower than 40 mg/dL are suggestive of increased risk for coronary artery disease. Results > or=to 60 mg/dL are considered a negative risk factor. 68 Per NCEP ATP III Guidelines: Normal Population <130 Patients with medical conditions: CHD/DM Optimal: <100 Borderline high: 130-159 High: 160-189 Very high: >189 69 This sample is drawn by:ECTOR/ARI 70 Concerning GFR Guidelines for Americans: Normal function or mild renal disease, if clinically at risk: >/=60 mL/min Moderately decreased: 30-59 Severely decreased: 15-29 Renal failure: <15 71 Concerning GFR Guidelines: Normal function or mild renal disease, if clinically at risk: >/=60 mL/min Moderately decreased: 30-59 Severely decreased: 15-29 Renal failure: <15 Glomerular Filtration Rate (GFR) is estimated based on the MDRD equation, which assumes a steady state for creatinine as recommended by the National Kidney Disease Education Program in conjunction with the National Institutes of Health and the National Kidney Foundation. Clinical conditions in which it may be necessary to measure GFR by using clearance methods include extremes of age and body size, severe malnutrition or obesity, diseases of skeletal muscle, paraplegia or quadriplegia, vegetarian diet, rapidly changing kidney function, and calculation of the dose of potentially toxic drugs that are excreted by the kidneys. 72 Per NCEP ATP III Guidelines: Results lower than 40 mg/dL are suggestive of increased risk for coronary artery disease. Results > or=to 60 mg/dL are considered a negative risk factor. 73 Per NCEP ATP III Guidelines: Normal Population <130 Patients with medical conditions: CHD/DM Optimal: <100 Borderline high: 130-159 High: 160-189 Very high: >189 74 Concerning GFR Guidelines for Americans: Normal function or mild renal disease, if clinically at risk: >/=60 mL/min Moderately decreased: 30-59 Severely decreased: 15-29 Renal failure: <15 75 Concerning GFR Guidelines: Normal function or mild renal disease, if clinically at risk: >/=60 mL/min Moderately decreased: 30-59 Severely decreased: 15-29 Renal failure: <15 Glomerular Filtration Rate (GFR) is estimated based on the MDRD equation, which assumes a steady state for creatinine as recommended by the National Kidney Disease Education Program in conjunction with the National Institutes of Health and the National Kidney Foundation. Clinical conditions in which it may be necessary to measure GFR by using clearance methods include extremes of age and body size, severe malnutrition or obesity, diseases of skeletal muscle, paraplegia or quadriplegia, vegetarian diet, rapidly changing kidney function, and calculation of the dose of potentially toxic drugs that are excreted by the kidneys. 76 Per NCEP ATP III Guidelines: Results lower than 40 mg/dL are suggestive of increased risk for coronary artery disease. Results > or=to 60 mg/dL are considered a negative risk factor. 77 Per NCEP ATP III Guidelines: Normal Population <130 Patients with medical conditions: CHD/DM Optimal: <100 Borderline high: 130-159 High: 160-189 Very high: >189 78 Concerning GFR Guidelines for Americans: Normal function or mild renal disease, if clinically at risk: >/=60 mL/min Moderately decreased: 30-59 Severely decreased: 15-29 Renal failure: <15 79 Concerning GFR Guidelines: Normal function or mild renal disease, if clinically at risk: >/=60 mL/min Moderately decreased: 30-59 Severely decreased: 15-29 Renal failure: <15 Glomerular Filtration Rate (GFR) is estimated based on the MDRD equation, which assumes a steady state for creatinine as recommended by the National Kidney Disease Education Program in conjunction with the National Institutes of Health and the National Kidney Foundation. Clinical conditions in which it may be necessary to measure GFR by using clearance methods include extremes of age and body size, severe malnutrition or obesity, diseases of skeletal muscle, paraplegia or quadriplegia, vegetarian diet, rapidly changing kidney function, and calculation of the dose of potentially toxic drugs that are excreted by the kidneys. 80 Per NCEP ATP III Guidelines: Results lower than 40 mg/dL are suggestive of increased risk for coronary artery disease. Results > or=to 60 mg/dL are considered a negative risk factor. 81 Per NCEP ATP III Guidelines: Normal Population <130 Patients with medical conditions: CHD/DM Optimal: <100 Borderline high: 130-159 High: 160-189 Very high: >189 82 Per NCEP ATP III Guidelines: Results lower than 40 mg/dL are suggestive of increased risk for coronary artery disease. Results > or=to 60 mg/dL are considered a negative risk factor. 83 Per NCEP ATP III Guidelines: Normal Population <130 Patients with medical conditions: CHD/DM Optimal: <100 Borderline high: 130-159 High: 160-189 Very high: >189 84 Concerning GFR Guidelines for Americans: Normal function or mild renal disease, if clinically at risk: >/=60 mL/min Moderately decreased: 30-59 Severely decreased: 15-29 Renal failure: <15 85 Concerning GFR Guidelines: Normal function or mild renal disease, if clinically at risk: >/=60 mL/min Moderately decreased: 30-59 Severely decreased: 15-29 Renal failure: <15 Glomerular Filtration Rate (GFR) is estimated based on the MDRD equation, which assumes a steady state for creatinine as recommended by the National Kidney Disease Education Program in conjunction with the National Institutes of Health and the National Kidney Foundation. Clinical conditions in which it may be necessary to measure GFR by using clearance methods include extremes of age and body size, severe malnutrition or obesity, diseases of skeletal muscle, paraplegia or quadriplegia, vegetarian diet, rapidly changing kidney function, and calculation of the dose of potentially toxic drugs that are excreted by the kidneys. 86 Concerning GFR Guidelines for Americans: Normal function or mild renal disease, if clinically at risk: >/=60 mL/min Moderately decreased: 30-59 Severely decreased: 15-29 Renal failure: <15 87 Concerning GFR Guidelines: Normal function or mild renal disease, if clinically at risk: >/=60 mL/min Moderately decreased: 30-59 Severely decreased: 15-29 Renal failure: <15 Glomerular Filtration Rate (GFR) is estimated based on the MDRD equation, which assumes a steady state for creatinine as recommended by the National Kidney Disease Education Program in conjunction with the National Institutes of Health and the National Kidney Foundation. Clinical conditions in which it may be necessary to measure GFR by using clearance methods include extremes of age and body size, severe malnutrition or obesity, diseases of skeletal muscle, paraplegia or quadriplegia, vegetarian diet, rapidly changing kidney function, and calculation of the dose of potentially toxic drugs that are excreted by the kidneys. 88 Per NCEP ATP III Guidelines: Results lower than 40 mg/dL are suggestive of increased risk for coronary artery disease. Results > or=to 60 mg/dL are considered a negative risk factor. 89 Per NCEP ATP III Guidelines: Normal Population <130 Patients with medical conditions: CHD/DM Optimal: <100 Borderline high: 130-159 High: 160-189 Very high: >189 90 This sample is drawn by:kd/team coordinator Fastin hours This sample is drawn by:kd /team coordinator Fastin hours 91 This sample is drawn by:LS/ELECTRICAL INSTRUMENT REPAIRER 92 Concerning GFR Guidelines for Americans: Normal function or mild renal disease, if clinically at risk: >/=60 mL/min Moderately decreased: 30-59 Severely decreased: 15-29 Renal failure: <15 93 Concerning GFR Guidelines: Normal function or mild renal disease, if clinically at risk: >/=60 mL/min Moderately decreased: 30-59 Severely decreased: 15-29 Renal failure: <15 Glomerular Filtration Rate (GFR) is estimated based on the MDRD equation, which assumes a steady state for creatinine as recommended by the National Kidney Disease Education Program in conjunction with the National Institutes of Health and the National Kidney Foundation. Clinical conditions in which it may be necessary to measure GFR by using clearance methods include extremes of age and body size, severe malnutrition or obesity, diseases of skeletal muscle, paraplegia or quadriplegia, vegetarian diet, rapidly changing kidney function, and calculation of the dose of potentially toxic drugs that are excreted by the kidneys. 94 Per NCEP ATP III Guidelines: Results lower than 40 mg/dL are suggestive of increased risk for coronary artery disease. Results > or=to 60 mg/dL are considered a negative risk factor. 95 Per NCEP ATP III Guidelines: Normal Population <130 Patients with medical conditions: CHD/DM Optimal: <100 Borderline high: 130-159 High: 160-189 Very high: >189 Procedures Date CPT Code Description Status 06/07/2018 95548 Admin Of Inj (Therapeutic Phrophylactic Or Diagnostic Completed Subq Inj 05/30/2018 Mammogram Completed 06/02/2016 Mammogram Completed 07/15/2015 75578 Electrocardiogram Complete Completed 04/24/2015 Mammogram Completed 01/22/2015 74547 Admin Of Inj (Therapeutic Phrophylactic Or Diagnostic Completed Subq Inj 05/26/2014 Mammogram Completed 05/26/2014 Diabetic Retinal Eye Exam Completed 05/26/2014 Colonoscopy Completed 05/26/2014 Bone Mineral Density Test Completed 03/28/2014 Mammogram Completed Encounters Type Date Location Provider CPT E/M Dx Office Visit 03/02/2018 10:00a Aishwarya Delacruz, N.P. 32518 E11.9 E78.00 E03.9 F41.1 Office Visit 01/12/2018 10:45a Aishwarya Delacruz, N.P. 71640 S50.11xA M79.605 Office Visit 12/05/2017 1:30p Aishwarya Delacruz, N.P. 10561 J20.9 Office Visit 11/24/2017 9:30a Aishwarya Delacruz, N.P. 09812 E78.00 E03.9 E11.9 F41.1 J06.9 Office Visit 08/25/2017 9:00a Aishwarya Delacruz, N.P. 73989 E78.00 E03.9 E11.9 F41.1 Office Visit 05/25/2017 9:30a Aishwarya Delacruz, N.P. 10171 E11.9 E03.9 E78.00 F41.1 Office Visit 05/15/2017 10:00a Aishwarya Delacruz, N.P. 13872 R23.8 Office Visit 02/21/2017 9:00a Aishwarya Delacruz, N.P. 48818 E11.9 E03.9 F41.1 Z00.8 Office Visit 02/06/2017 9:45a Aishwarya Delacruz, N.P. 60946 D18.01 Office Visit 11/21/2016 10:15a Aishwarya Delacruz, N.P. 84697 E11.9 E03.9 E78.00 F41.1 Office Visit 09/09/2016 11:00a Aishwarya Delacruz, N.P. 48715 J01.00 H66.002 R05 Office Visit 08/23/2016 10:30a Aishwarya Delacruz, N.P. 45048 E11.9 E03.9 E78.00 F41.1 Office Visit 07/13/2016 10:00a Aishwarya Delacruz, N.P. 08649 R23.8 R05 Z28.21 Office Visit 07/05/2016 1:30p Aishwarya Delacruz, N.P. 81352 R23.8 F41.1 Office Visit 05/26/2016 8:30a Aishwarya Delacruz, N.P. 97235 E11.9 F41.1 M71.20 Office Visit 04/26/2016 1:45p Aishwarya Delacruz, N.P. 82177 B37.83 M71.20 Office Visit 02/25/2016 8:30a Aishwarya Delacruz, N.P. 32428 E03.9 E11.9 E78.0 Office Visit 11/24/2015 9:30a Aishwarya Delacruz, N.P. 14108 R23.8 F41.1 Office Visit 08/18/2015 9:45a Aishwarya Delacruz, N.P. 83988 E11.9 F41.1 E03.9 Office Visit 07/15/2015 9:30a Aishwarya Delacruz, N.P. 49245 F41.1 R42 Office Visit 05/05/2015 10:45a Aishwarya Delacruz, N.P. 67922 250.00 272.0 244.9 300.02 Office Visit 02/04/2015 8:45a Aishwarya Delacruz, N.P. 53582 782.9 Office Visit 01/29/2015 10:45a Aishwarya Delacruz, N.P. 63951 782.9 Office Visit 01/22/2015 8:00a Aishwarya Delacruz, N.P. 10042 V04.89 300.02 250.00 272.0 V06.1 Office Visit 11/19/2014 8:00a Aishwarya Delacruz, N.P. 03546 300.02 244.9 Office Visit 10/20/2014 8:45a Aishwarya Delacruz N.P. 85325 250.00 244.9 272.0 Office Visit 08/07/2014 3:15p Aishwarya Delacruz N.P. 97303 300.02 250.00 244.9 Office Visit 07/28/2014 2:45p Aishwarya Delacruz, N.P. 30722 250.00 244.9 300.02 Office Visit 07/23/2014 9:00a Aishwarya Delacruz N.P. 14005 250.00 244.9 Office Visit 06/25/2014 8:15a Aishwarya Delacruz, N.P. 88678 300.02 250.00 272.0 Office Visit 06/23/2014 9:00a Aishwarya Delacruz, N.P. 39529 272.0 250.00 244.9 Office Visit 06/04/2014 11:00a Aishwarya Delacruz, N.P. 66301 912.4 Office Visit 05/26/2014 10:30a Aishwarya Delacruz, N.P. 53558 250.00 244.9 530.81 727.43 Plan of Care Future Appointment(s):09/11/2018 9:30 am - Aishwarya Cheung, N.P. at [facility]3911/2018 8:00 am - Nurses Schedule [place] at [facility]97/04/2018 - Aishwarya Cheung, N.P.Z00.00 Encntr for general adult medical exam w/o abnormal findingsComments:well femalehealth promotion discussed at length including exercise,proper nutrition, sleep hygiene, adequate fluid intake, stress relief, safety and routine health sceening including skin, testicular/breast, and routine office PE's.E11.9 Type 2 diabetes mellitus without complicationsComments :currrently stable on janumet XR 50-500 and diet controlno formal exercise but does stay activecont meds, follow DM diet, recheck 3 moE78.00 Pure hypercholesterolemia, unspecifiedComments:f/u labs, follow low chol dietstable on current [facility] same and limit chol in dietE03.9 Hypothyroidism, unspecifiedComments:euthyroidstable with medications, euthyroid, recheck q 3 moZ23 Encounter for immunizationComments:patient/parent counseled regarding flu vaccine-need for, risks of not getting immun. and poss SE of vacc parent counseled regarding vaccine-need for, risks of not getting immun. and poss SE of vaccAllNew Medication:Shingrix 50 mcg
--- OUTSIDE RECORDS SUMMARY | 2018-06-13 13:32 | XMS REPORT ---
:1945 External Reference #:[id number] Author Organization [facility] Address [address], [address] [place] [address] Phone [phone] Care Team Providers Name Role Phone Aishwarya Cheung, JELENA Care Team Information Gas Meter Checker Unavailable Aishwarya Cheung, LICENSING AND REGISTRATION DIRECTOR Primary Care Physician Unavailable Payers Type Date Identification Numbers Payment Provider Subscriber Medicare Primary Expires: Policy Number: Medicare Sil Dubon 2018 [id number] PayID: [id number] [address] [place] [address] Medicare Primary Effective: Policy Number: Medicare Sil Dubon 2018 [id number] PayID: [id number] [address] [place] [address] Problems Date Description Provider Status Onset: 08/08/2017 Pain in left lower limb Raj Ordaz M.D. Active Onset: 04/04/2017 Ganglion/synovial cyst - knee Raj Ordaz M.D. Active Onset: 05/24/2016 Complex tear of lat mensc, current Raj Ordaz M.D. Active injury, left knee, subs Onset: 05/24/2016 Synovial cyst of popliteal space Raj Ordaz M.D. Active Onset: 05/10/2016 Old tear of posterior horn of medial Raj Ordaz M.D. Active meniscus Onset: 05/10/2016 Localized, primary osteoarthritis Raj Ordaz M.D. Active Family History Date Family Member(s) Problem(s) Comments General Heart Disease General Diabetes Social History Type Date Description Comments Lives With Alone Occupation Retired Work Status Retired Cigarette Use Quit ETOH Use Currently consumes alcohol socially Recreational Drug Use Denies Drug Use Daily Caffeine Current Caffeine User Allergies, Adverse Reactions, Alerts Date Description Reaction Status Severity Comments 05/10/2016 Penicillins active 05/10/2016 Sulfa Drugs active 05/10/2016 Wellbutrin active Medications Medication Date Status Form Strength Qnty SIG Indications Ordering Provider Ibuprofen 08/08/ Active Tablets 800mg 30tabs Take One [place], 2016 Tablet By Raj, Mouth M.D. Three Times A Day as Needed Levothyroxine / Active Tablets 88mcg 1 by mouth Unknown Sodium 0000 every day Janumet / Active Tablets 50-500mg 1 by mouth Unknown 0000 twice a day Omeprazole / Active Capsules 40mg 1 by mouth Unknown 0000 DR every day Alprazolam / Active Tablets 0.5mg 1 by mouth Unknown 0000 three times a day as needed Aspir-81 / Active Tablets DR 81mg 1 by mouth Unknown 0000 every day Multivitamin / Active Tablets Unknown Women 0000 Fiber / Active Tablets 1000mg take one Unknown 0000 tablet daily. Loratadine / Active Capsules 10mg 1 by mouth Unknown 0000 every day No Active Unknown Medications 2015 - 2015 Naproxen 07/20/ Hx Tablets 500mg 60tabs 1 tab by Heidi Laboy - mouth Maranda 07/20/ twice a L., N.P. 2009 day with food Naproxen 07/20/ Hx Tablets 500mg 60tabs 1 tab by Narda 2009 - mouth Maranda 05/10/ twice a L., N.P. 2015 with food Ibuprofen / Hx Capsules 400mg as needed Unknown 0000 - 2016 Hydrocodone-Scott / Hx Tablets 5-325mg Take 1 Unknown taminophen 0000 - Tablet By Mouth 2016 Every 4 6 Hours as Needed For Moderate Pain 5T Gavilyte-N With / Hx Solution 420gm Take By Unknown Flavor Pack 0000 - Rec Mouth For Day as 2017 Directed Azithromycin / Hx Tablets 250mg Take Two Unknown 0000 - Tablets By Mouth AT 2017 Once On The First Day Then Take One Daily Fluzone / Hx Emma 0.5ml FS Unknown High-Dose 0000 - 2016 Clotrimazole / Hx Cream 1% Apply To Unknown 0000 - Affected 02/02/ Area Three 2017 Times A Day as Directed Medications Administered in Office Medication Date Status Form Strength Qnty SIG Indications Ordering Provider Depomedrol 80 Administered Injection mg Luda Chaudhary PA Vital Signs Date Vital Result Comment 05/17/2018 BP Systolic Sitting Right Arm 112 mmHg BP Diastolic Sitting Right Arm 66 mmHg Body Temperature 98.5 F Heart Rate 85 /min Respiratory Rate 18 /min Height 64 inches 5'4" Weight 141.25 lb BMI (Body Mass Index) 24.2 kg/m2 BSA (Body Surface Area) 1.69 m2 [place] body weight in kilograms 54 O2 % BldC Oximetry 95 % 04/19/2018 BP Systolic Sitting Right Arm 134 mmHg BP Diastolic Sitting Right Arm 73 mmHg Body Temperature 98.1 F Heart Rate 78 /min Height 64 inches 5'4" Weight 141.00 lb BMI (Body Mass Index) 24.2 kg/m2 BSA (Body Surface Area) 1.69 m2 [place] body weight in kilograms 54 O2 % BldC Oximetry 90 % 10/12/2017 BP Systolic 104 mmHg BP Diastolic 63 mmHg Body Temperature 98.1 F Heart Rate 90 /min Respiratory Rate 14 /min Height 64 inches 5'4" Weight 136.00 lb BMI (Body Mass Index) 23.3 kg/m2 BSA (Body Surface Area) 1.66 m2 [place] body weight in kilograms 54 08/08/2017 BP Systolic Sitting Right Arm 135 mmHg BP Diastolic Sitting Right Arm 79 mmHg Heart Rate 117 /min 11/01/2016 BP Systolic Sitting Left Arm 120 mmHg BP Diastolic Sitting Left Arm 72 mmHg Heart Rate 76 /min Height 62.25 inches 5'2.25" Weight 136.00 lb BMI (Body Mass Index) 24.7 kg/m2 BSA (Body Surface Area) 1.63 m2 [place] body weight in kilograms 50 05/10/2016 BP Systolic 114 mmHg BP Diastolic 74 mmHg Height 62.5 inches 5'2.50" Weight 136.00 lb BMI (Body Mass Index) 24.5 kg/m2 BSA (Body Surface Area) 1.63 m2 [place] body weight in kilograms 51 Results Test Date Test Result H/L Range Note CBC 11/11/2016 White Blood Count 6.1 K/uL 3.1-10.7 1 Red Blood Count 4.30 M/uL 3.90-5.40 1 Hemoglobin 13.4 gm/dL 11.6-15.8 1 Hematocrit 39.1 % 36.0-46.1 1 Mean Cell Volume 90.9 fl 80.9-99.0 1 Mean Corpuscular HGB 31.2 pg 25.9-32.7 1 Mean Corpuscular HGB Conc 34.3 g/dL 30.8-34.3 1 Platelet Count 202 K/uL 150-400 1 Red Cell Distri Width %CV 13.4 % 11.7-14.4 1 Mean Platelet Volume 9.6 fL 8.9-12.4 1 Basic Metabolic Panel 11/11/2016 Glucose 122 mg/dL High 74-106 1 BUN 18 mg/dL 7-18 1 Creatinine 0.8 mg/dL 0.6-1.3 1 Glom Filtration Rate, Estimate >60 mL/min >60 1 If >60 mL/min >60 1, 2 BUN/Creat 22.5 ratio 1 Sodium 142 mmol/L 136-145 1 Potassium 4.2 mmol/L 3.5-5.1 1 Chloride 105 mmol/L 98-107 1 Carbon Dioxide 27 mmol/L 21-32 1 Anion Gap 10 mEq/L 8-16 1 Calcium 9.0 mg/dL 8.5-10.1 1 1 CONSULT 11/08 77828 19533 S83.272 M71.8 2 Note: Persistent reduction for 3 months or more in an eGFR <60 mL/min/1.73 m2 defines CKD. Patients with eGFR values >/=60 mL/min/1.73 m2 may also have CKD if evidence of persistent proteinuria is present. The original MDRD equation for estimated GFR is not valid for patients less than 18 years of age. Additional information may be found at www.kdoqi.org. Procedures Date CPT Code Description Status 04/19/2018 09332 Radiology, Knee 3 Views Completed 04/19/2018 Asp./Injection major joint Completed 07/11/2017 Asp./Injection major joint Completed 02/02/201796658 Aspiration/inject ganlion cyst any location Completed 12/20/201655268 Asp./Injection major joint Completed 11/11/2016 01912 Arthroscopy w/meniscectomy including meniscal shaving Completed 11/11/2016 Asp./Injection major joint Completed 05/24/2016 69199 Asp./Injection major joint Completed 05/10/2016 18451 Radiology, Knee 3 Views Completed 05/10/2016 20109 Radiology, Knee 3 Views Completed 07/20/2010 70451 Radiology, Knee 3 Views Completed 03/20/2010 93403 Echocardiogram Complete Completed Encounters Type Date Location Provider CPT E/M Dx Office Visit 04/19/2018 10:45a [place] [address] M79.605 M71.20 M17.12 Office Visit 10/12/2017 2:45p [facility] Raj Ordaz M.D. 84867 M71.20 Office Visit 08/08/2017 1:45p [facility] Raj Ordaz M.D. 58711 M79.605 Office Visit 07/11/2017 11:30a [facility] Raj Ordaz M.D. 37214 M67.462 Office Visit 04/04/2017 8:45a [facility] Raj Ordaz M.D. 51970 M67.462 Office Visit 10/11/2016 1:00p [facility] Raj Ordaz M.D. 87842 S83.272D Office Visit 07/05/2016 9:45a [facility] Raj Ordaz M.D. 21956 S83.272D Office Visit 05/24/2016 9:00a [facility] Raj Ordaz M.D. 08466 S83.272D M71.20 Office Visit 05/19/2016 10:00a [facility] Raj Ordaz M.D. 60316 S83.272D Office Visit 07/20/2010 2:15p [facility] Office Maranda Laboy, 29150 715.16 N.P. Plan of Care No Information Available
[2018-06-13 13:48] VITALS: BP 136/81
--- NOTE | 2018-06-13 13:56 | UC ---
Shortness of Breath HPI - HPI Summary HPI Summary: 72-year-old woman comes in today with a chief complaint of shortness of breath. She's been sick for more than a week. She was seen here in clinic several days ago started on prednisone. She improved for couple of days and then she got a lot worse yesterday. Today she's having splinting right-sided chest pain. She feels more short of breath and very fatigued. She quit smoking 8 years ago. He says the splinting right-sided chest pain she has no other chest pain. No edema. - History of Current Complaint Chief Complaint: UCRespiratory Stated Complaint: RECHECK FROM MONDAY - FATIGUE,UPPER RESPITORY Time Seen by Provider: 06/13/18 13:40 - Allergy/Home Medications Allergies/Adverse Reactions: Allergies Allergy/AdvReac Type Severity Reaction Status Date / Time albuterol Allergy Agitation Verified 06/10/18 07:53 Penicillins Allergy Unknown Verified 06/10/18 07:53 Reaction Details Sulfa (Sulfonamide Allergy Vomiting Verified 06/10/18 07:53 Antibiotics) grass mowing Allergy Swelling Uncoded 05/09/17 16:15 Of Face,Lips,& Throat PMH/Surg Hx/FS Hx/Imm Hx Respiratory History: COPD - Surgical History Surgical History: Yes Surgery Procedure, Year, and Place: [facility]. left knee. hysterectomy - Family History Known Family History: Positive: Hypertension, Diabetes, Other - breast and colon Ca Negative: Cardiac Disease - Social History Alcohol Use: Rare Substance Use Type: Prescribed Substance Use Comment - Amount & Last Used: xanax Smoking Status (MU): Former Smoker When Did the Patient Quit Smoking/Using Tobacco: 2009 - Immunization History Most Recent Influenza Vaccination: 05/05/17 Most Recent Tetanus Shot: 01/22/15 Review of Systems Constitutional: Fever, Chills Skin: Negative Eyes: Negative ENT: Sore Throat, Nasal Discharge Respiratory: Shortness Of Breath, Cough, Other - WHEEZING, SEE HPI Cardiovascular: Chest Pain - SEE HPI Gastrointestinal: Negative Motor: Weakness - SEE HPI Neurovascular: Negative Musculoskeletal: Negative Neurological: Negative Psychological: Negative Is Patient Immunocompromised?: No All Other Systems Reviewed And Are Negative: Yes Physical Exam Triage Information Reviewed: Yes Appearance: No Pain Distress, Well-Nourished, Ill-Appearing - MODERATE RESPIRATORY DISTRESS, MODERATELY ILL APPEARING Vital Signs: Initial Vital Signs Temp 99.5 F 10/10/18 13:39 Pulse 113 06/13/18 13:39 Resp 25 06/13/18 13:39 BP 136/81 06/13/18 13:39 Pulse Ox 92 06/13/18 13:39 Vital Signs Reviewed: Yes Eye Exam: Normal Eyes: Positive: Conjunctiva Clear ENT: Positive: Nasal congestion, Nasal drainage Neck exam: Normal Neck: Positive: Supple Respiratory: Positive: Respiratory distress, Accessory muscle use, Rhonchi, Wheezing Cardiovascular: Positive: Tachycardia Musculoskeletal Exam: Normal Musculoskeletal: Positive: Strength Intact, ROM Intact Neurological: Positive: Fatigued Psychological Exam: Normal Psychological: Positive: Normal Response To Family, Age Appropriate Behavior Skin Exam: Normal Shortness of Breath Dx - Course Course Of Treatment: Patient looks moderately ill and in moderate respiratory distress here in the clinic. Her oxygen saturation is 92% however she's having quite a bit of work of breathing. I recommended evaluation in the emergency department and her family said they can drive her to the emergency department. - Differential Dx/Diagnosis Provider Diagnoses: DYSPNEA. CHEST PAIN Discharge - Sign-Out/Discharge Documenting (check all that apply): Patient Departure All imaging exams completed and their final reports reviewed: No Studies - Discharge Plan Condition: Fair Disposition: HOME-RECOMMEND TO ED Patient Education Materials: Shortness of Breath (ED) Referrals: Aishwarya Cheung NP [Primary Care Provider] - Additional Instructions: GO DIRECTLY TO THE EMERGENCY DEPARTMENT FOR FURTHER EVALUATION. - Billing Disposition and Condition Condition: FAIR Disposition: Home-Recommend to ED
== END 2018-06-13 14:02 | disposition home health service (06) ==
LOC: UCCORT 13:14
DX: R06.00 Dyspnea, unspecified (principal); R07.9 Chest pain, unspecified; Z88.0 Allergy status to penicillin; Z88.1 Allergy status to other antibiotic agents; Z88.8 Allergy status to other drugs, medicaments and biological substances; Z87.891 Personal history of nicotine dependence
CPT/HCPCS: 99212; G0463

== ENCOUNTER 2019-02-26 15:20 | Emergency (ER) | payer MEDICAID, MEDICARE ==
--- OUTSIDE RECORDS SUMMARY | 2019-02-26 15:54 | XMS REPORT | Continuity of Care Document ---
:1945 External Reference #:[id number] Author Name Aishwarya Cheung N.P. Address [address] [facility] [place] [address] Care Team Providers Name Role Phone Aishwarya Cheung N.P. 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 Onset: 05/26/2014 Hypothyroidism Aishwarya Cheung, N.P. Onset: 05/26/2014 Type 2 diabetes mellitus Onset: 11/19/2014 Gastroesophageal reflux disease Aishwarya Cheung, N.P. Onset: 02/25/2016 Anxiety Aishwarya Cheung, N.P. Onset: 05/26/2016 Pneumonia Aishwarya Cheung, N.P. Onset: 06/26/2018 Family History Date Family Member(s) Observation Comments Father Diabetes, Adult Father due to [place] () Mother Diabetes, Adult Mother due to Heart Disease () Mother Pacemaker Mother due to Diabetes () First Son Diabetes, Adult First Brother due to Diabetes () Second Brother [place] First Sister due to Diabetes () Second Sister Cancer, Breast Social History Type Date Description Comments Sex Unknown Marital Status 08/25/15 Lives With Boyfriend Occupation Retired [employer] Tobacco Use Start: Unknown End: Unknown Patient is a former smoker Smoking Status Reviewed: 12/13/18 Patient is a former smoker Allergies, Adverse Reactions, Alerts Active Allergies Reaction Severity Comments Date Penicillin 05/26/2014 Sulfa Drugs Nausea and Vomiting, 05/26/2014 VOMITING Wellbutrin Personality Changed. 05/26/2014 Medications Active Medications SIG Qnty Indications Ordering Date Provider Fluocinonide apply sparingly 30gm [facility], 02/25/2019 0.05% Cream to itchy rash Masanyle, N.P. three times a day Meclizine HCL 1-2 three times a 15tabs Hammond, 01/30/2019 12.5mg day as needed for Mashelle, N.P. Tablets dizziness Ofloxacin (Otic) 4 drops RIGHT ear 5ml Hammond, 01/30/2019 0.3% every day x 5 Mashelle, N.P. Solution days Shingrix Hammond, 06/07/2018 50mcg Suspension Masanyle, N.P. Rec Ibuprofen 1 by mouth two 30tabs Hammond, 01/12/2018 800mg Tablets times a day with Mashelle, N.P. food prn pain Loratadine take one tablet 30tabs [facility], 02/21/2017 10mg Tablets by mouth every Mashelle, N.P. day Janumet XR Take One Tablet 30ta Hammond, 09/24/2015 50-500mg By Mouth Every Mashelle, N.P. Tablets ER 24HR Day Alprazolam 1 by mouth three 90tabs [facility], 08/18/2015 0.5mg Tablets times a day as Mashelle, N.P. needed anxiety Levothyroxine Sodium take one tablet 90tabs [facility], 10/21/2014 by mouth every Mashelle, N.P. 88mcg Tablets day on empty stomach Omeprazole 1 by mouth every 30caps Hammond, 05/26/2014 40mg Capsules day Alexle, N.P. Aspirin 1 by mouth every Hammond, 05/26/2014 81mg Chewtabs day Mashelle, N.P. Multi Vitamin Daily Hammond, 05/26/2014 Mashelle, N.P. Tablets Proventil HFA 2 puffs four Unknown 108(90Base) times a day as mcg/Act Aerosol needed Spiriva Respimat 2 puffs every day Unknown 2.5mcg/Act Aerosol History Medications Fluticasone Propionate apply to affected 15gm Aishwarya Cheung, 2018 - area of neck as N.P. 02/25/2019 0.05% Cream directed bid Zithromax Z-Leonard as directed 1tabs Aishwarya Cheung, 12/05/2017 - 250mg N.P. 01/12/2018 Tablets Ibuprofen 1 by mouth three 40tabs Aishwarya Cheung, 11/21/2016 - 800mg Tablets times a day with N.P. 05/25/2017 food prn pain Azithromycin 2 by mouth day 6tabs Aishwarya Cheung, 09/09/2016 - 250mg one then 1 by N.P. 11/16/2016 Tablets mouth every day x 4 days Clotrimazole/Betametha apply to affected 45gm Aishwarya Cheung, 2015 - sone Dipropionate area three times N.P. 04/26/2016 1-0.05% a day as directed Cream Clotrimazole apply to affected 30gm Aishwarya Cheung, 04/26/2016 - 1% Cream area tid N.P. 07/05/2016 Zithromax Z-Leonard as directed 1tabs Latasha Cheungmarquis, 08/18/2015 - 250mg N.P. 02/25/2016 Tablets Meclizine HCL 1 by mouth three 21tabs Latasha Cheungmarquis, 07/15/2015 - 25mg times a day N.P. 02/25/2016 Tablets Onglyza Take One Tablet 30tabs Latasha Cheungmraquis, 10/31/2014 - 5mg Tablets By Mouth Every N.P. 09/24/2015 Day Tradjenta 1 by mouth every 30tabs Aishwarya Cheung, 10/21/2014 - 5mg Tablets day N.P. 10/31/2014 Zithromax Z-Leonard as directed 1tabs Jonatan, Latashamarquis, 10/20/2014 - 250mg N.P. 11/19/2014 Tablets Anaprox DS 1 by mouth every 30tabs Aishwarya Cheung, 10/20/2014 - 550mg Tablets 12 hour with food N.P. 05/05/2015 Metformin HCL ER Take One Tablet 100tabs Aishwarya Cheung, 09/25/2014 - 500mg By Mouth Twice A N.P. 09/24/2015 Tablets ER 24HR Day Zoloft 1 by mouth q hs 30tabs Aishwarya Cheung, 07/28/2014 - 25mg Tablets N.P. 08/07/2014 Levothyroxine Sodium 1 by mouth every 90tabs Aishwarya Cheung, 2013 - day N.P. 10/21/2014 75mcg Tablets Lovastatin 1 by mouth every 90tabs Aishwarya Cheung, 05/26/2014 - 10mg Tablets day N.P. 05/26/2014 Metformin HCL take one tablet 100tabs Aishwarya Cheung, 05/26/2014 - 500mg by mouth twice a N.P. 09/25/2014 Tablets day Alprazolam 1 three times a 90tabs Aishwarya Cheung, 05/26/2014 - 0.25mg Tablets day as needed N.P. 08/18/2015 anxiety Breo Ellipta inhale one puff Unknown - by mouth every 01/30/2019 100-25mcg/Inh Aerosol day Immunizations CPT Code Status Date Vaccine Reaction Lot # [id number] Given 05/18/2018 Fluzone Highdose Age 65 And Over Preservative & Antibiotic Free 97520 Given 05/01/2017 Influenza Vac, Quadrivalent, Split, 0.5mL Dosage, Im Use 39994 Given 04/29/2017 Influenza Vac, Quadrivalent, Split, 0.5mL Dosage, Im Use [id number] Given 05/02/2016 Fluzone Trivalent Immunization KMV GAVE Q2038 Given 05/04/2015 Fluzone Trivalent Immunization 02701 Given 01/22/2015 Tdap (Adacel) Ages 7 And Above Only [id number] 55425 Given 06/26/2014 Pneumococcal 23 Immunization Adult Or [id number] Immunosuppressed Patient 17911 Given 05/09/2014 Afluria Or Fluvirin Flu Vac Intramuscular 96044 Given 07/09/2007 Pneumococcal 23 Immunization Adult Or Immunosuppressed Patient 63082 Given 02/21/2007 Prevnar 13 Pneumococal Conjugate Vaccine [id number] Refused 06/26/2018 Shingrix (Shingles) Zoster Vaccine HZV, Recombinant , Subunit, Adj Vital Signs Date Vital Result Comment 02/25/2019 12:56pm Body Temperature 98.2 F Weight 146.00 lb Heart Rate 86 /min BP Systolic 124 mmHg BP Diastolic 70 mmHg O2 % BldC Oximetry 97 % 01/30/2019 9:51am Body Temperature 98.1 F Weight 146.00 lb Heart Rate 80 /min BP Systolic 142 mmHg BP Diastolic 70 mmHg O2 % BldC Oximetry 96 % 12/13/2018 10:00am Body Temperature 97.7 F Weight 149.38 lb Heart Rate 98 /min BP Systolic 144 mmHg BP Diastolic 80 mmHg Height 62.5 inches 5'2.50" O2 % BldC Oximetry 97 % BMI (Body Mass Index) 26.9 kg/m2 12/04/2018 11:47am Body Temperature 97.7 F Weight 149.12 lb Heart Rate 78 /min BP Systolic 144 mmHg BP Diastolic 80 mmHg O2 % BldC Oximetry 94 % 09/11/2018 9:33am Body Temperature 98.4 F Weight 149.00 lb Heart Rate 88 /min BP Systolic 113 mmHg BP Diastolic 70 mmHg O2 % BldC Oximetry 96 % 06/26/2018 10:52am Body Temperature 97.9 F Weight 136.50 lb Heart Rate 97 /min BP Systolic 120 mmHg BP Diastolic 76 mmHg O2 % BldC Oximetry 95 % 06/07/2018 10:07am Body Temperature 99.0 F Weight 138.25 lb Heart Rate 88 /min BP Systolic 130 mmHg BP Diastolic 63 mmHg Height 63.5 inches 5'3.50" O2 % BldC Oximetry 94 % BMI (Body Mass Index) 24.1 kg/m2 03/02/2018 10:03am Body Temperature 98.1 F Weight 139.38 lb Heart Rate 77 /min BP Systolic 113 mmHg BP Diastolic 67 mmHg O2 % BldC Oximetry 97 % 01/12/2018 10:43am Body Temperature 98.6 F Weight 135.00 lb Heart Rate 89 /min BP Systolic 130 mmHg BP Diastolic 69 mmHg O2 % BldC Oximetry 95 % 12/05/2017 1:34pm Body Temperature 98.4 F Weight 132.00 lb Heart Rate 99 /min BP Systolic 127 mmHg BP Diastolic 70 mmHg O2 % BldC Oximetry 95 % 11/24/2017 9:20am Body Temperature 97.0 F Weight 138.12 lb Heart Rate 95 /min BP Systolic 138 mmHg BP Diastolic 67 mmHg Height 63.50 inches 5'3.50" O2 % BldC Oximetry 95 % BMI (Body Mass Index) 24.1 kg/m2 08/25/2017 8:59am Body Temperature 97.7 F Weight 138.00 lb Heart Rate 93 /min BP Systolic 144 mmHg BP Diastolic 79 mmHg O2 % BldC Oximetry 96 % 05/25/2017 9:26am Body Temperature 98.2 F Weight 137.00 lb Heart Rate 91 /min BP Systolic 120 mmHg BP Diastolic 70 mmHg O2 % BldC Oximetry 97 % 05/15/2017 9:51am Body Temperature 97.9 F Weight 135.00 lb Heart Rate 100 /min BP Systolic 123 mmHg BP Diastolic 77 mmHg O2 % BldC Oximetry 98 % 02/21/2017 8:49am Body Temperature 97.3 F Weight 137.00 lb Heart Rate 82 /min BP Systolic 123 mmHg BP Diastolic 70 mmHg Height 63.5 inches 5'3.50" O2 % BldC Oximetry 95 % BMI (Body Mass Index) 23.9 kg/m2 02/06/2017 9:44am Body Temperature 97.5 F Weight 137.00 lb Heart Rate 92 /min BP Systolic 134 mmHg BP Diastolic 73 mmHg O2 % BldC Oximetry 95 % 11/21/2016 10:17am Body Temperature 98.1 F Weight 135.12 lb Heart Rate 94 /min BP Systolic 130 mmHg BP Diastolic 69 mmHg Height 63.5 inches 5'3.50" O2 % BldC Oximetry 95 % BMI (Body Mass Index) 23.6 kg/m2 09/09/2016 10:47am Body Temperature 97.5 F Weight 137.00 lb Heart Rate 92 /min BP Systolic 132 mmHg BP Diastolic 77 mmHg O2 % BldC Oximetry 96 % 08/23/2016 10:16am Body Temperature 97.2 F Weight 137.00 lb Heart Rate 98 /min BP Systolic 123 mmHg BP Diastolic 69 mmHg O2 % BldC Oximetry 96 % 07/13/2016 9:47am Body Temperature 96.8 F Weight 137.00 lb Heart Rate 104 /min BP Systolic 128 mmHg BP Diastolic 73 mmHg O2 % BldC Oximetry 96 % 07/05/2016 1:06pm Body Temperature 98.1 F Weight 137.50 lb Heart Rate 96 /min BP Systolic 112 mmHg BP Diastolic 60 mmHg O2 % BldC Oximetry 97 % 05/26/2016 8:25am Body Temperature 97.3 F Weight 135.19 lb Heart Rate 87 /min BP Systolic 126 mmHg BP Diastolic 73 mmHg O2 % BldC Oximetry 95 % 04/26/2016 1:40pm Body Temperature 97.7 F Weight 139.25 lb Heart Rate 87 /min BP Systolic 108 mmHg BP Diastolic 62 mmHg 02/25/2016 8:28am Body Temperature 97.9 F Weight 145.25 lb Heart Rate 92 /min BP Systolic 116 mmHg BP Diastolic 69 mmHg O2 % BldC Oximetry 96 % 11/24/2015 9:27am Body Temperature 98.1 F Weight 138.00 lb Heart Rate 98 /min BP Systolic 115 mmHg BP Diastolic 64 mmHg 08/18/2015 9:14am Body Temperature 96.6 F Weight 133.50 lb Heart Rate 105 /min BP Systolic 136 mmHg BP Diastolic 66 mmHg O2 % BldC Oximetry 96 % 07/15/2015 9:37am Body Temperature 97.5 F Weight 139.25 lb Heart Rate 94 /min BP Systolic 122 mmHg BP Diastolic 64 mmHg O2 % BldC Oximetry 95 % 05/05/2015 10:39am Body Temperature 97.2 F Weight 140.25 lb Heart Rate 102 /min BP Systolic 128 mmHg BP Diastolic 65 mmHg O2 % BldC Oximetry 97 % 02/04/2015 8:29am Body Temperature 96.8 F Weight 140.50 lb Heart Rate 84 /min BP Systolic 123 mmHg BP Diastolic 66 mmHg O2 % BldC Oximetry 96 % 01/29/2015 10:53am Body Temperature 97.9 F Weight 142.00 lb Heart Rate 94 /min BP Systolic 117 mmHg BP Diastolic 67 mmHg O2 % BldC Oximetry 96 % 01/22/2015 8:07am Body Temperature 97.9 F Weight 143.00 lb Heart Rate 98 /min BP Systolic 117 mmHg BP Diastolic 67 mmHg O2 % BldC Oximetry 94 % 11/19/2014 8:16am Body Temperature 97.6 F Weight 145.12 lb Heart Rate 97 /min BP Systolic 135 mmHg BP Diastolic 68 mmHg 10/20/2014 8:51am Body Temperature 98.0 F Weight 145.38 lb Heart Rate 85 /min BP Systolic 114 mmHg BP Diastolic 65 mmHg O2 % BldC Oximetry 96 % 08/07/2014 3:03pm Body Temperature 97.4 F Weight 143.00 lb Heart Rate 80 /min BP Systolic 116 mmHg BP Diastolic 68 mmHg 07/28/2014 3:08pm Body Temperature 97.6 F Weight 144.25 lb Heart Rate 93 /min BP Systolic 117 mmHg BP Diastolic 66 mmHg O2 % BldC Oximetry 95 % 07/23/2014 8:44am Weight 146.50 lb Heart Rate 103 /min BP Systolic 140 mmHg BP Diastolic 70 mmHg 06/25/2014 8:14am Weight 142.25 lb Heart Rate 83 /min BP Systolic 126 mmHg BP Diastolic 66 mmHg O2 % BldC Oximetry 97 % 06/23/2014 9:02am Body Temperature 98.0 F Weight 145.00 lb Heart Rate 79 /min BP Systolic 116 mmHg BP Diastolic 70 mmHg O2 % BldC Oximetry 97 % 06/04/2014 11:03am Body Temperature 97.7 F Weight 145.25 lb Heart Rate 83 /min BP Systolic 142 mmHg BP Diastolic 68 mmHg 05/26/2014 10:27am Body Temperature 97.8 F Weight 144.50 lb Heart Rate 87 /min BP Systolic 126 mmHg BP Diastolic 72 mmHg Height 63.5 inches 5'3.50" O2 % BldC Oximetry 95 % BMI (Body Mass Index) 25.2 kg/m2 Results Test Date Facility Test Result H/L Range Note Hemoglobin A1c 12/11/2018 [facility] Hemoglobin A1c 7.5 % High 4.1-5.9 1 Estimated Average Glucose Calc 169 mg/dL High 71-140 Comprehensive Met Panel-[facility] 12/11/2018 [facility] Sodium 142 mmol/L 135- 146 2 Potassium 5.4 mmol/L High 3.5-5.2 Chloride# 102 mmol/L 97-110 3 Carbon Dioxide 33 mmol/L 24-34 Glucose 168 mg/dL High 70-105 BUN 18 mg/dL 6-26 Creatinine 0.8 mg/dL 0.5-1.4 Calcium 9.9 mg/dL 8.5-10.2 Total Protein 6.4 g/dL 6.0-8.0 Albumin 4.4 g/dL 3.6-4.9 Globulin 2.0 g/dL 2.0-3.5 A/G Ratio 2.2 Ratio 1.0-2.2 Total Bilirubin 0.6 mg/dL 0.1-1.3 Alkaline Phosphatase 47 U/L 24-140 Alt 28 U/L 3-42 Ast 21 U/L 8-42 Anion Gap 7 mmol/L 5-15 4 Dominga Egfr >60 >60 5 Non Dominga Egfr >60 >60 6 Laboratory test finding 12/11/2018 [facility] TSH 1.85 uIU/mL 0.35-4.94 Lipid 12/11/2018 [facility] Cholesterol 199 mg/dL 50-199 Triglycerides 257 mg/dL High 30-200 HDL 41 mg/dL 35-85 7 Chol/ HDL Ratio 4.9 ratio 3.7-5.6 VLDL 51 mg/dL High 2-29 LDL (Calc) 107 mg/dL High 20-99 8 Laboratory test finding 09/06/2018 [facility] TSH 1.52 uIU/mL 0.35-4.94 Comprehensive Met Panel-[facility] 09/06/2018 [facility] Sodium 142 mmol/L 135- 146 9 Potassium 4.6 mmol/L 3.5-5.2 Chloride# 103 mmol/L 97-110 10 Carbon Dioxide 32 mmol/L 24-34 Glucose 162 mg/dL High 70-105 BUN 19 mg/dL 6-26 Creatinine 0.8 mg/dL 0.5-1.4 Calcium 9.7 mg/dL 8.5-10.2 Total Protein 6.3 g/dL 6.0-8.0 Albumin 4.1 g/dL 3.6-4.9 Globulin 2.2 g/dL 2.0-3.5 A/G Ratio 1.9 Ratio 1.0-2.2 Total Bilirubin 0.4 mg/dL 0.1-1.3 Alkaline Phosphatase 47 U/L 24-140 Alt 20 U/L 3-42 Ast 20 U/L 8-42 Dominga Egfr >60 >60 11 Non Dominga Egfr >60 >60 12 Anion Gap 7 mmol/L 5-15 13 Lipid 09/06/2018 [facility] Cholesterol 214 mg/dL High 50-199 Triglycerides 308 mg/dL High 30-200 HDL 40 mg/dL 35-85 14 Chol/ HDL Ratio 5.3 ratio 3.7-5.6 VLDL 62 mg/dL High 2-29 LDL (Calc) 112 mg/dL High 20-99 15 Hemoglobin A1c 09/06/2018 [facility] Hemoglobin A1c 7.2 % High 4.1-5.9 Estimated Average Glucose Calc 160 mg/dL High 71-140 CBC 06/16/2018 [facility] White Blood Count 12.2 K/uL High 3.1-10.7 16 (315)- - Red Blood Count 3.44 M/uL Low 3.90-5.40 Hemoglobin 10.9 gm/dL Low 11.6-15.8 Hematocrit 32.0 % Low 36.0-46.1 Mean Cell Volume 93.0 fl N 80.9-99.0 Mean Corpuscular HGB 31.7 pg N 25.9-32.7 Mean Corpuscular HGB Conc 34.1 g/dL N 30.8-34.3 Platelet Count 281 K/uL N 155-360 Red Cell Distri Width %CV 12.9 % N 11.7-14.4 Mean Platelet Volume 8.8 fL Low 8.9-12.4 Basic Metabolic Panel 06/16/2018 [facility] Glucose 147 mg/dL High 74-106 (315)- - BUN 12 mg/dL N 7-18 Creatinine 0.7 mg/dL N 0.6-1.3 Glom Filtration Rate, Estimate >60 mL/min >60 If >60 mL/min >60 17 BUN/Creat 17.1 ratio Sodium 139 mmol/L N 136-145 Potassium 3.8 mmol/L N 3.5-5.1 Chloride 102 mmol/L N 98-107 Carbon Dioxide 32 mmol/L N 21-32 Anion Gap 5 mEq/L Low 8-16 Calcium 8.4 mg/dL Low 8.5-10.1 CBC 06/15/2018 [facility] White Blood Count 9.3 K/uL N 3.1-10.7 (315)- - Red Blood Count 3.22 M/uL Low 3.90-5.40 Hemoglobin 10.0 gm/dL Low 11.6-15.8 Hematocrit 30.3 % Low 36.0-46.1 Mean Cell Volume 94.1 fl N 80.9-99.0 Mean Corpuscular HGB 31.1 pg N 25.9-32.7 Mean Corpuscular HGB Conc 33.0 g/dL N 30.8-34.3 Platelet Count 270 K/uL N 155-360 Red Cell Distri Width %CV 12.8 % N 11.7-14.4 Mean Platelet Volume 9.3 fL N 8.9-12.4 Basic Metabolic Panel 06/15/2018 [facility] Glucose 196 mg/dL High 74-106 (315)- - BUN 18 mg/dL N 7-18 Creatinine 0.7 mg/dL N 0.6-1.3 Glom Filtration Rate, Estimate >60 mL/min >60 If >60 mL/min >60 18 BUN/Creat 25.7 ratio Sodium 141 mmol/L N 136-145 Potassium 3.9 mmol/L N 3.5-5.1 Chloride 103 mmol/L N 98-107 Carbon Dioxide 30 mmol/L N 21-32 Anion Gap 8 mEq/L N 8-16 Calcium 8.5 mg/dL N 8.5-10.1 Basic Metabolic Panel 06/14/2018 [facility] Glucose 302 mg/dL High 74-106 (315)- - BUN 10 mg/dL N 7-18 Creatinine 0.7 mg/dL N 0.6-1.3 Glom Filtration Rate, Estimate >60 mL/min >60 If >60 mL/min >60 19 BUN/Creat 14.2 ratio Sodium 135 mmol/L Low 136-145 Potassium 4.4 mmol/L N 3.5-5.1 Chloride 97 mmol/L Low 98-107 Carbon Dioxide 29 mmol/L N 21-32 Anion Gap 9 mEq/L N 8-16 Calcium 8.9 mg/dL N 8.5-10.1 Glycohemoglobin A1c 06/14/2018 [facility] Glycohemoglobin 6.6 % High 4.2-6.3 20 (315)- - (A1c) eAG 143 mg/dL CBS W/Automated Diff 06/14/2018 [facility] White Blood 7.7 K/uL N 3.1-10.7 (315)- - Count Red Blood Count 3.80 M/uL Low 3.90-5.40 Hemoglobin 12.2 gm/dL N 11.6-15.8 Hematocrit 35.0 % Low 36.0-46.1 Mean Cell Volume 92.1 fl N 80.9-99.0 Mean Corpuscular HGB 32.1 pg N 25.9-32.7 Mean Corpuscular HGB Conc 34.9 g/dL High 30.8-34.3 Platelet Count 249 K/uL N 155-360 Red Cell Distri Width SD 41.6 fl N 3-47 Red Cell Distri Width %CV 12.8 % N 11.7-14.4 Mean Platelet Volume 9.1 fL N 8.9-12.4 Neut% 87.4 % High 40.4-72.8 Lymph % 7.8 % Low 20.0-42.0 Island % 4.4 % N 4.3-13.2 Eo% 0.1 % N 0.0-6.6 Bas% 0.3 % N 0.0-1.1 Neut# 6.75 K/uL N 1.8-7.0 Lymph # 0.60 K/uL Low 1.0-4.0 Island # 0.34 K/uL N 0.3-0.9 Eos # 0.01 K/uL N 0.0-0.5 Baso # 0.02 K/uL N 0.0-0.1 Laboratory test 06/13/2018 [facility] Legionella Negative Negative 21 finding (315)- - Urinary Antigen Urinalysis With 06/13/2018 [facility] Urine Color YELLOW Yellow Microscopic (315)- - Urine Clarity SL CLOUDY Clear Urine Glucose - Dipstick 250 mg/dL High Negative Urine Bilirubin - Dipstick NEGATIVE Negative Urine Ketone TRACE mg/dL High Negative Urine Specific [place] >=1.030 N 1.010-1.030 Urine Blood MODERATE Abnormal Negative Urine PH 5.5 Low 6.5-7.5 Urine Protein - Dipstick 100 mg/dL High Negative Urine Urobilinogen - Dipstick 0.2 E.U./dL N 0.2-1.0 Urine Nitrite - Dipstick NEGATIVE Negative Urine Leuk Esterase NEGATIVE Negative Urine RBC 0-2 rbc/hpf 0-2 Urine WBC 0-2 wbc/hpf 0-7 Urine Epithelial Cells VERY FEW /lpf None Seen Urine Bacteria VERY FEW None Seen Source: URINE, CLEAN CAT <SEE NOTE> 22 Lactic Acid 06/13/2018 [facility] Lactic Acid 1.2 mmol/L N 0.4-1.9 23 (315)- - Lab Reflex >2.0 for Sepsis? Y Blood Culture 06/13/2018 [facility] Blood Culture NO GROWTH: 24, 25 (315)- - Aerobic FINAL <SEE NOTE> Blood Culture Anaerobic NO GROWTH: FINAL <SEE NOTE> 26 Blood Culture 06/13/2018 [facility] Blood Culture NO GROWTH: FINAL 27 (315)- - Aerobic <SEE NOTE> Blood Culture Anaerobic NO GROWTH: FINAL <SEE NOTE> 28 Hemoglobin A1c 06/04/2018 [place] Hemoglobin A1c 6.4 % High 4.1-5.9 29 Estimated Average Glucose Calc 137 mg/dL 71-140 Comprehensive Met Panel-[facility] 06/04/2018 [place] Sodium 143 mmol/L 135- 146 30 Potassium 4.5 mmol/L 3.5-5.2 Chloride# 102 mmol/L 97-110 31 Carbon Dioxide 31 mmol/L 24-34 Glucose 148 mg/dL High 70-105 BUN 14 mg/dL 6-26 Creatinine 0.8 mg/dL 0.5-1.4 Calcium 9.6 mg/dL 8.5-10.2 Total Protein 6.7 g/dL 6.0-8.0 Albumin 4.3 g/dL 3.6-4.9 Globulin 2.4 g/dL 2.0-3.5 A/G Ratio 1.8 Ratio 1.0-2.2 Total Bilirubin 0.4 mg/dL 0.1-1.3 Alkaline Phosphatase 46 U/L 24-140 Alt 27 U/L 3-42 Ast 24 U/L 8-42 Dominga Egfr >60 >60 32 Non Dom[place] Egfr >60 >60 33 Anion Gap 10 mmol/L 5-15 34 Lipid 06/04/2018 [facility] Cholesterol 204 mg/dL High 50-199 Triglycerides 262 mg/dL High 30-200 HDL 38 mg/dL 35-85 35 Chol/ HDL Ratio 5.4 ratio 3.7-5.6 VLDL 52 mg/dL High 2-29 LDL (Calc) 114 mg/dL High 20-99 36 Laboratory test 06/04/2018 [facility] TSH 0.82 uIU/mL 0.35-4.94 finding Hem[facility] 6.5 % High 4.1-5.9 37 Estimated Average Glucose Calc 140 mg/dL 71-140 Microalb/Creat Panel 02/26/2018 [facility] Creatinine, Urine 75.4 mg/dL Microalb/Creat Urine 26.66 ug/mgCreat 0.00-30.00 Microalbumin 20.1 ug/ml High 0.0-20.0 Comprehensive Met Panel-[facility] 02/26/2018 [facility] Sodium 142 mmol/L 135- 146 38 Potassium 5.0 mmol/L 3.5-5.2 Chloride# 102 mmol/L 97-110 39 Carbon Dioxide 31 mmol/L 24-34 Glucose 121 mg/dL High 70-105 BUN 15 mg/dL 6-26 Creatinine 0.9 mg/dL 0.5-1.4 Calcium 9.6 mg/dL 8.5-10.2 Total Protein 6.6 g/dL 6.0-8.0 Albumin 4.2 g/dL 3.6-4.9 Globulin 2.4 g/dL 2.0-3.5 A/G Ratio 1.8 Ratio 1.0-2.2 Total Bilirubin 0.7 mg/dL 0.1-1.3 Alkaline Phosphatase 43 U/L 24-140 Alt 18 U/L 3-42 Ast 21 U/L 8-42 Dominga Egfr >60 >60 40 Non Dom[place] Egfr >60 >60 41 Anion Gap 9 mmol/L 5-15 42 Laboratory test finding [facility]26[facility] 2.37 uIU/mL 0.35-4.94 Lipid 02/26/2018 [facility] Cholesterol 235 mg/dL High 50-199 Triglycerides 198 mg/dL 30-200 HDL 46 mg/dL 35-85 43 Chol/ HDL Ratio 5.1 ratio 3.7-5.6 VLDL 40 mg/dL High 2-29 LDL (Calc) 149 mg/dL High 20-99 44 Comprehensive Met Panel-[facility] 11/21/2017 [facility] Sodium 146 mmol/L 135- 146 45 Potassium 4.9 mmol/L 3.5-5.2 Chloride# 105 mmol/L 97-110 46 Carbon Dioxide 33 mmol/L 24-34 Glucose 143 mg/dL High 70-105 BUN 19 mg/dL 6-26 Creatinine 0.8 mg/dL 0.5-1.4 Calcium 9.6 mg/dL 8.5-10.2 Total Protein 7.0 g/dL 6.0-8.0 Albumin 4.4 g/dL 3.6-4.9 Globulin 2.6 g/dL 2.0-3.5 A/G Ratio 1.7 Ratio 1.0-2.2 Total Bilirubin 0.6 mg/dL 0.1-1.3 Alkaline Phosphatase 45 U/L 24-140 Alt 19 U/L 3-42 Ast 20 U/L 8-42 Doming[place] Egfr >60 >60 47 Non [place] Egfr >60 >60 48 Anion Gap 8 mmol/L 5-15 49 Hemoglobin A1c 11/21/2017 [facility] Hemoglobin A1c 6.7 % High 4.1-5.9 Estimated Average Glucose Calc 146 mg/dL High 71-140 Laboratory test finding [facility]/21[facility]2017 [facility] 0.89 uIU/mL 0.35-4.94 Lipid 11/21/2017 [facility] Cholesterol 208 mg/dL High 50-199 Triglycerides 135 mg/dL 30-200 HDL 48 mg/dL 35-85 50 Chol/ HDL Ratio 4.3 ratio 3.7-5.6 VLDL 27 mg/dL 2-29 LDL (Calc) 133 mg/dL High 51 Laboratory test finding 08/22/2017 [facility] TSH 1.92 uIU/mL 0.35-4.94 Lipid 08/22/2017 [facility] Cholesterol 178 mg/dL 50-199 Triglycerides 144 mg/dL 30-200 HDL 45 mg/dL 35- 52 Chol/ HDL Ratio 3.9 ratio 3.7-5.6 VLDL 29 mg/dL 2- LDL (Calc) 104 mg/dL High 53 Hemoglobin A1c 08/22/2017 [facility] Hemoglobin A1c 6.6 % High 4.1-5.9 Estimated Average Glucose Calc 143 mg/dL High 71-140 Comprehensive Met Panel-[facility] 08/22/2017 [facility] Sodium 145 mmol/L 135- 146 54 Potassium 4.4 mmol/L 3.5-5.2 Chloride# 105 mmol/L 97-110 55 Carbon Dioxide 32 mmol/L 24-34 Glucose 125 mg/dL High 70-105 Creatinine 0.8 mg/dL 0.5-1.4 Calcium 9.2 mg/dL 8.5-10.2 Total Protein 6.1 g/dL 6.0-8.0 Albumin 4.1 g/dL 3.6-4.9 Globulin 2.0 g/dL 2.0-3.5 A/G Ratio 2.1 Ratio 1.0-2.2 Total Bilirubin 0.6 mg/dL 0.1-1.3 Alkaline Phosphatase 34 U/L 24-140 Alt 29 U/L 3-42 Ast 22 U/L 8-42 [place] Egfr >60 >60 56 Non [place] Egfr >60 >60 57 Anion Gap 8 mmol/L 7-16 58 BUN 13 mg/dL 6- Comprehensive Met Panel-[facility] 05/22/2017 [place] Sodium 143 mmol/L 135- 146 59, 60 Potassium 4.7 mmol/L 3.5-5.2 Chloride# 103 mmol/L 97-110 61 Carbon Dioxide 30 mmol/L 24-34 Glucose 129 mg/dL High 70-105 BUN 14 mg/dL 6-26 Creatinine 0.8 mg/dL 0.5-1.4 Calcium 9.3 mg/dL 8.5-10.2 Total Protein 6.5 g/dL 6.0-8.0 Albumin 4.1 g/dL 3.6-4.9 Globulin 2.4 g/dL 2.0-3.5 A/G Ratio 1.7 Ratio 1.0-2.2 Total Bilirubin 0.6 mg/dL 0.1-1.3 Alkaline Phosphatase 38 U/L 24-140 Alt 24 U/L 3-42 Ast 21 U/L 8-42 [place] Egfr >60 >60 62 Non [place] Egfr >60 >60 63 Anion Gap 10 mmol/L 7-16 64 Hemoglobin A1c 05/22/2017 [place] Hemoglobin A1c 6.8 % High 4.1-5.9 Estimated Average Glucose Calc 148 High 71-140 Laboratory test 05/22/2017 [facility] TSH 2.43 uIU/mL 0.35-4.94 finding Hemoglobin A1c 02/17/2017 [facility] Hemoglobin A1c 6.2 % High 4.1-5.9 65 Estimated Average Glucose Calc 131 71-140 Comprehensive Metabolic (CMP) 02/17/2017 [facility] Sodium 144 mmol/L 135- 146 66 Potassium 5.1 mmol/L 3.5-5.2 Chloride# 103 mmol/L 97-110 67 Carbon Dioxide 32 mmol/L 24-34 Glucose 122 mg/dL High 70-105 BUN 15 mg/dL 6-26 Creatinine 1.0 mg/dL 0.5-1.4 Calcium 9.9 mg/dL 8.5-10.2 Total Protein 6.4 g/dL 6.0-8.0 Albumin 4.1 g/dL 3.6-4.9 Globulin 2.3 g/dL 2.0-3.5 A/G Ratio 1.8 Ratio 1.0-2.2 Total Bilirubin 0.6 mg/dL 0.1-1.3 Alkaline Phosphatase 41 U/L 24-140 Alt 17 U/L 3-42 Ast 18 U/L 8-42 Doming[place] Egfr >60 >60 68 Non Doming[place] Egfr 57 Low >60 69 Anion Gap 14 mmol/L 7-16 70 Lipid Treatment 02/17/2017 [facility] Cholesterol 208 mg/dL High 50-199 Triglycerides 165 mg/dL 30-200 HDL 47 mg/dL 35-85 71 Chol/ HDL Ratio 4.5 ratio 3.7-5.6 VLDL 33 mg/dL High 2-29 LDL (Calc) 128 mg/dL High 20-99 72 Alt 17 U/L 3-42 Ast 18 U/L 8-42 Laboratory test finding 02/17/2017 [facility] TSH 1.55 uIU/mL 0.35-4.94 Laboratory test finding 11/18/2016 [facility] TSH 0.44 uIU/mL 0.35-4.94 73 Hepatitis C Virus Antibody NONREACTIVE Nonreactive Microalb/Creat Panel 11/18/2016 [facility] Creatinine, Urine 174.3 mg/dL Microalb/Creat Urine 7.06 ug/mgCreat 0.00-30.00 Microalbumin 12.3 ug/ml 0.0-20.0 Lipid 11/18/2016 [facility] Cholesterol 219 mg/dL High 50-199 Triglycerides 194 mg/dL 30-200 HDL 50 mg/dL 35-85 74 Chol/ HDL Ratio 4.4 ratio 3.7-5.6 VLDL 39 mg/dL High 2-29 LDL (Calc) 130 mg/dL High 20-99 75 Laboratory test finding 11/18/2016 [facility] Hemoglobin A1c 6.2 % High 4.1- 5.9 Comprehensive Metabolic 11/18/2016 [facility] Sodium 143 mmol/L 135-146 76 (CMP) Potassium 4.8 mmol/L 3.5-5.2 Chloride# 101 mmol/L 97-110 77 Carbon Dioxide 32 mmol/L 24-34 Glucose 132 mg/dL High 70-105 BUN 15 mg/dL 6-26 Creatinine 0.9 mg/dL 0.5-1.4 Calcium 9.9 mg/dL 8.5-10.2 Total Protein 6.9 g/dL 6.0-8.0 Albumin 4.5 g/dL 3.6-4.9 Globulin 2.4 g/dL 2.0-3.5 A/G Ratio 1.9 Ratio 1.0-2.2 Total Bilirubin 0.7 mg/dL 0.1-1.3 Alkaline Phosphatase 43 U/L 24-140 Alt 19 U/L 3-42 Ast 20 U/L 8-42 Doming[place] Egfr >60 >60 78 Non [place] Egfr >60 >60 79 Anion Gap 15 mmol/L 7-16 80 CBC 11/11/2016 [facility] White Blood Count 6.1 K/uL N 3.1-10.7 81 (315)- - Red Blood Count 4.30 M/uL N 3.90-5.40 Hemoglobin 13.4 gm/dL N 11.6-15.8 Hematocrit 39.1 % N 36.0-46.1 Mean Cell Volume 90.9 fl N 80.9-99.0 Mean Corpuscular HGB 31.2 pg N 25.9-32.7 Mean Corpuscular HGB Conc 34.3 g/dL N 30.8-34.3 Platelet Count 202 K/uL N 150-400 Red Cell Distri Width %CV 13.4 % N 11.7-14.4 Mean Platelet Volume 9.6 fL N 8.9-12.4 Basic Metabolic Panel 11/11/2016 [facility] Glucose 122 mg/dL High 74-106 (315)- - BUN 18 mg/dL N 7-18 Creatinine 0.8 mg/dL N 0.6-1.3 Glom Filtration Rate, Estimate >60 mL/min >60 If >60 mL/min >60 82 BUN/Creat 22.5 ratio Sodium 142 mmol/L N 136-145 Potassium 4.2 mmol/L N 3.5-5.1 Chloride 105 mmol/L N 98-107 Carbon Dioxide 27 mmol/L N 21-32 Anion Gap 10 mEq/L N 8-16 Calcium 9.0 mg/dL N 8.5-10.1 Laboratory test finding 08/18/2016 [facility] Hemoglobin A1c 6.2 % High 4.1- 5.9 83 TSH 2.29 uIU/mL 0.35-4.94 Comprehensive Metabolic (CMP) 08/18/2016 [facility] Sodium 140 mmol/L 134- 142 Potassium 4.9 mmol/L 3.5-5.2 Chloride 101 mmol/L 97-109 Carbon Dioxide 34 mmol/L 24-34 Glucose 122 mg/dL High 70-105 BUN 17 mg/dL 6-26 Creatinine 0.9 mg/dL 0.5-1.4 Calcium 9.7 mg/dL 8.5-10.2 Total Protein 6.9 g/dL 6.0-8.0 Albumin 4.3 g/dL 3.6-4.9 Globulin 2.6 g/dL 2.0-3.5 A/G Ratio 1.7 Ratio 1.0-2.2 Total Bilirubin 0.6 mg/dL 0.1-1.3 Alkaline Phosphatase 40 U/L 24-140 Alt 19 U/L 3-42 Ast 20 U/L 8-42 Anion Gap 10 mmol/L 6-14 Dom[place] Egfr >60 >60 84 Non [place] Egfr >60 >60 85 Lipid 08/18/2016 [facility] Cholesterol 207 mg/dL High 50-199 Triglycerides 189 mg/dL 30-200 HDL 46 mg/dL 35-85 86 Chol/ HDL Ratio 4.5 ratio 3.7-5.6 VLDL 38 mg/dL High 2-29 LDL (Calc) 123 mg/dL High 20-99 87 Laboratory test finding 06/01/2016 [facility] Vitamin B12 1320 pg/mL High 180-914 Vit D,25 Hydroxy 57 ng/mL 31-100 Folate >23.8 ng/ml 5.9-24.8 Laboratory test finding 05/23/2016 [facility] TSH 1.74 uIU/mL 0.35-4.94 Hemoglobin A1c 6.3 % High 4.1-5.9 Lipid 05/23/2016 [facility] Cholesterol 185 mg/dL 50-199 Triglycerides 127 mg/dL 30-200 HDL 44 mg/dL 35-85 88 Chol/ HDL Ratio 4.2 ratio 3.7-5.6 VLDL 25 mg/dL 2-29 LDL (Calc) 116 mg/dL High 20-99 89 Comprehensive Metabolic (CMP) 05/23/2016 [facility] Sodium 141 mmol/L 134- 142 Potassium 5.1 mmol/L 3.5-5.2 Chloride 104 mmol/L 97-109 Carbon Dioxide 31 mmol/L 24-34 Glucose 120 mg/dL High 70-105 BUN 12 mg/dL 6-26 Creatinine 0.9 mg/dL 0.5-1.4 Calcium 9.5 mg/dL 8.5-10.2 Total Protein 6.4 g/dL 6.0-8.0 Albumin 4.1 g/dL 3.6-4.9 Globulin 2.3 g/dL 2.0-3.5 A/G Ratio 1.8 Ratio 1.0-2.2 Total Bilirubin 0.6 mg/dL 0.1-1.3 Alkaline Phosphatase 32 U/L 24-140 Alt 20 U/L 3-42 Ast 19 U/L 8-42 Anion Gap 11 mmol/L 6-14 Doming[place] Egfr >60 >60 90 Non [place] Egfr 60 Low >60 91 Laboratory test finding 02/22/2016 [facility] TSH 1.81 uIU/mL 0.35-4.94 92 Comprehensive Metabolic (CMP) 02/22/2016 [facility] Sodium 141 mmol/L 134- 142 Potassium 4.8 mmol/L 3.5-5.2 Chloride 102 mmol/L 97-109 Carbon Dioxide 32 mmol/L 24-34 Glucose 128 mg/dL High 70-105 BUN 14 mg/dL 6-26 Creatinine 1.0 mg/dL 0.5-1.4 Calcium 9.7 mg/dL 8.5-10.2 Total Protein 6.7 g/dL 6.0-8.0 Albumin 4.1 g/dL 3.6-4.9 Globulin 2.6 g/dL 2.0-3.5 A/G Ratio 1.6 Ratio 1.0-2.2 Total Bilirubin 0.5 mg/dL 0.1-1.3 Alkaline Phosphatase 36 U/L 24-140 Alt 32 U/L 3-42 Ast 24 U/L 8-42 Anion Gap 12 mmol/L 6-14 Dom[place] Egfr >60 >60 93 Non [place] Egfr 56 Low >60 94 Laboratory test finding 02/22/2016 [facility] Hemoglobin A1c 6.6 % High 4.1- 5.9 Lipid 02/22/2016 [facility] Cholesterol 193 mg/dL 50-199 Triglycerides 193 mg/dL 30-200 HDL 43 mg/dL 35-85 95 Chol/ HDL Ratio 4.5 ratio 3.7-5.6 VLDL 39 mg/dL High 2-29 LDL (Calc) 111 mg/dL High 20-99 96 Laboratory test finding 11/19/2015 [facility] Hemoglobin A1c 6.3 % High 4.1- 5.9 97 Comprehensive Metabolic 11/19/2015 [facility] Sodium 140 mmol/L 134-142 (CMP) Potassium 4.7 mmol/L 3.5-5.2 Chloride 103 mmol/L 97-109 Carbon Dioxide 31 mmol/L 24-34 Glucose 132 mg/dL High 70-105 BUN 15 mg/dL 6-26 Creatinine 0.9 mg/dL 0.5-1.4 Calcium 9.3 mg/dL 8.5-10.2 Total Protein 6.4 g/dL 6.0-8.0 Albumin 4.0 g/dL 3.6-4.9 Globulin 2.4 g/dL 2.0-3.5 A/G Ratio 1.7 Ratio 1.0-2.2 Total Bilirubin 0.4 mg/dL 0.1-1.3 Alkaline Phosphatase 36 U/L 24-140 Alt 18 U/L 3-42 Ast 17 U/L 8-42 Anion Gap 11 mmol/L 02-15 Dom[place] Egfr >60 >60 98 Non [place] Egfr >60 >60 99 Lipid 11/19/2015 [facility] Cholesterol 204 mg/dL High 50-199 Triglycerides 145 mg/dL 30-200 HDL 55 mg/dL 35-85 100 Chol/ HDL Ratio 3.7 ratio 3.7-5.6 VLDL 29 mg/dL 2-29 LDL (Calc) 120 mg/dL High 20-99 101 Laboratory test 11/19/2015 [facility] TSH 1.19 uIU/mL 0.35-4.94 finding Laboratory test 08/17/2015 [facility] Hemoglobin A1c 6.3 % High 4.1-5.9 finding Comprehensive 08/17/2015 [facility] Sodium 137 mmol/L 134-142 Metabolic (CMP) Potassium 4.5 mmol/L 3.5-5.2 Chloride 102 mmol/L 97-109 Carbon Dioxide 27 mmol/L 24-34 Glucose 110 mg/dL High 70-105 BUN 15 mg/dL 6-26 Creatinine 0.8 mg/dL 0.5-1.4 Calcium 9.4 mg/dL 8.5-10.2 Total Protein 6.5 g/dL 6.0-8.0 Albumin 4.2 g/dL 3.6-4.9 Globulin 2.3 g/dL 2.0-3.5 A/G Ratio 1.8 Ratio 1.0-2.2 Total Bilirubin 0.6 mg/dL 0.1-1.3 Alkaline Phosphatase 33 U/L 24-140 Alt 17 U/L 3-42 Ast 19 U/L 8-42 Anion Gap 13 mmol/L 02-15 [place] Egfr >60 >60 102 Non [place] Egfr >60 >60 103 Lipid 08/17/2015 [facility] Cholesterol 164 mg/dL 50-199 Triglycerides 154 mg/dL 30-200 HDL 38 mg/dL 35-85 104 Chol/ HDL Ratio 4.3 ratio 3.7-5.6 VLDL 31 mg/dL High 2-29 LDL (Calc) 95 mg/dL 20-99 105 Laboratory test finding 08/17/2015 [facility] TSH 1.45 uIU/mL 0.35-4.94 Comprehensive Metabolic (CMP) 04/30/2015 [facility] Sodium 139 mmol/L 134- 142 Potassium 4.3 mmol/L 3.5-5.2 Chloride 101 mmol/L 97-109 Carbon Dioxide 33 mmol/L 24-34 Glucose 96 mg/dL 70-105 BUN 14 mg/dL 6-26 Creatinine 0.8 mg/dL 0.5-1.4 Calcium 9.5 mg/dL 8.5-10.2 Total Protein 6.4 g/dL 6.0-8.0 Albumin 4.2 g/dL 3.6-4.9 Globulin 2.2 g/dL 2.0-3.5 A/G Ratio 1.9 Ratio 1.0-2.2 Total Bilirubin 0.5 mg/dL 0.1-1.3 Alkaline Phosphatase 36 U/L 24-140 Alt 16 U/L 3-42 Ast 16 U/L 8-42 Anion Gap 9 mmol/L 6-14 Dom[place] Egfr >60 >60 106 Non [place] Egfr >60 >60 107 Laboratory test finding 04/30/2015 [facility] TSH 1.81 uIU/mL 0.35-4.94 Hemoglobin A1c 6.2 % High 4.1-5.9 Lipid 04/30/2015 [facility] Cholesterol 196 mg/dL 50-199 Triglycerides 208 mg/dL High 30-200 HDL 40 mg/dL 35-85 108 Chol/ HDL Ratio 4.9 ratio 3.7-5.6 VLDL 42 mg/dL High 2-29 LDL (Calc) 114 mg/dL High 20-99 109 Laboratory test finding 01/19/2015 [facility] TSH 1.67 uIU/mL 0.35-4.94 Lipid 01/19/2015 [facility] Cholesterol 213 mg/dL High 50-199 Triglycerides 187 mg/dL 30-200 HDL 43 mg/dL 35-85 110 Chol/ HDL Ratio 5.0 ratio 3.7-5.6 VLDL 37 mg/dL High 2-29 LDL (Calc) 133 mg/dL High 20-99 111 Comprehensive Metabolic (CMP) 01/19/2015 [facility] Sodium 141 mmol/L 134- 142 Potassium 4.6 mmol/L 3.5-5.2 Chloride 103 mmol/L 97-109 Carbon Dioxide 31 mmol/L 24-34 Glucose 121 mg/dL High 70-105 BUN 14 mg/dL 6-26 Creatinine 0.9 mg/dL 0.5-1.4 Calcium 9.7 mg/dL 8.5-10.2 Total Protein 7.0 g/dL 6.0-8.0 Albumin 4.4 g/dL 3.6-4.9 Globulin 2.6 g/dL 2.0-3.5 A/G Ratio 1.7 Ratio 1.0-2.2 Total Bilirubin 0.7 mg/dL 0.1-1.3 Alkaline Phosphatase 37 U/L 24-140 Alt 16 U/L 3-42 Ast 19 U/L 8-42 Anion Gap 12 mmol/L 02-15 [place] Egfr >60 >60 112 Non [place] Egfr >60 >60 113 Laboratory test 01/19/2015 [facility] Hemoglobin A1c 6.3 % High 4.1-5.9 finding Laboratory test 11/17/2014 [facility] TSH 1.66 uIU/mL 0.34-5.60 finding Laboratory test 10/20/2014 [facility] Hemoglobin A1c 6.9 % High 4.1-5.9 finding Comprehensive 10/20/2014 [facility] Sodium 141 mmol/L 134-142 Metabolic (CMP) Potassium 4.4 mmol/L 3.5-5.2 Chloride 100 mmol/L 97-109 Carbon Dioxide 33 mmol/L 24-34 Glucose 147 mg/dL High 70-105 BUN 16 mg/dL 6-26 Creatinine 0.9 mg/dL 0.5-1.4 Calcium 9.9 mg/dL 8.5-10.2 Total Protein 7.2 g/dL 6.0-8.0 Albumin 4.6 g/dL 3.6-4.9 Globulin 2.6 g/dL 2.0-3.5 A/G Ratio 1.8 Ratio 1.0-2.2 Total Bilirubin 0.7 mg/dL 0.1-1.3 Alkaline Phosphatase 41 U/L 24-140 Alt 24 U/L 3-42 Ast 23 U/L 8-42 Anion Gap 12 mmol/L 02-15 [place] Egfr >60 >60 114 Non [place] Egfr >60 >60 115 Lipid 10/20/2014 [facility] Cholesterol 234 mg/dL High 50-199 Triglycerides 256 mg/dL High 30-200 HDL 49 mg/dL 35-85 116 Chol/ HDL Ratio 4.8 ratio 3.7-5.6 VLDL 51 mg/dL High 2-29 LDL (Calc) 134 mg/dL High 20-99 117 Laboratory test 10/20/2014 [facility] TSH 5.70 uIU/mL High 0.34-5.60 finding Laboratory test 07/23/2014 [facility] Hemoglobin A1c 6.7 % High 4.1-5.9 118 finding TSH 1.45 uIU/mL 0.34-5.60 Comprehensive Metabolic (CMP) 06/23/2014 [facility] Sodium 140 mmol/L 134- 142 119 Potassium 4.7 mmol/L 3.5-5.2 Chloride 102 mmol/L 97-109 Carbon Dioxide 32 mmol/L 24-34 Glucose 127 mg/dL High 70-105 BUN 14 mg/dL 6-26 Creatinine 0.8 mg/dL 0.5-1.4 Calcium 9.4 mg/dL 8.5-10.2 Total Protein 6.4 g/dL 6.0-8.0 Albumin 4.3 g/dL 3.6-4.9 Globulin 2.1 g/dL 2.0-3.5 A/G Ratio 2.0 Ratio 1.0-2.2 Total Bilirubin 0.5 mg/dL 0.1-1.3 Alkaline Phosphatase 35 U/L 24-140 Alt 19 U/L 3-42 Ast 18 U/L 8-42 Anion Gap 11 mmol/L 6-14 Doming[place] Egfr >60 >60 120 Non [place] Egfr >60 >60 121 Laboratory test finding 06/23/2014 [facility] TSH 4.45 uIU/mL 0.34-5.60 Lipid 06/23/2014 [facility] Cholesterol 185 mg/dL 50-199 Triglycerides 141 mg/dL 30-200 HDL 43 mg/dL 35-85 122 Chol/ HDL Ratio 4.3 ratio 3.7-5.6 VLDL 28 mg/dL 2-29 LDL (Calc) 114 mg/dL High 20-99 123 CBC With Auto Diff 06/23/2014 [facility] WBC 4.7 K/uL 4.1-11.0 RBC 4.06 M/uL 4.00-5.40 Hemoglobin 12.6 gm/dL 12.0-16.0 Hematocrit 37.6 % 36.0-47.0 MCV 92.6 fL 80.0-97.0 MCH 31.1 pg 27.0-32.0 MCHC 33.6 g/dL 32.0-36.0 RDW 13.5 % 11.5-14.5 PLT Count 175 K/ul 140-400 Neutrophil 56.8 % 35.0-75.0 Lymphocyte 32.6 % 16.0-52.0 Monocyte 6.9 % 2.0-10.0 Eosinophil 2.6 % 0.0-5.0 Basophil 1.1 % 0.0-4.0 Abs Neutrophils 2.6 K/uL 2.1-8.0 Abs Lymphocytes 1.5 K/uL 0.8-5.5 Abmon 0.3 K/uL 0.1-1.0 Abs Eosinophils 0.1 K/uL 0.0-0.5 Abs Basophils 0.1 K/uL 0.0-0.3 1 This sample is drawn by:DL/M[employer]IZING RANGE [employer]ER 2 Updated reference range on new analyzer 3 Updated reference range on new analyzer 4 Updated Reference Range 5 Concerning GFR Guidelines for Americans: Normal function or mild renal disease, if clinically at risk: >/=60 mL/min Moderately decreased: 30-59 Severely decreased: 15-29 Renal failure: <15 6 Concerning GFR Guidelines: Normal function or mild [...] drugs that are excreted by the kidneys. 7 Per NCEP ATP III Guidelines: Results lower than 40 mg/dL are suggestive of increased risk for coronary artery disease. Results > or=to 60 mg/dL are considered a negative risk factor. 8 Per NCEP ATP III Guidelines: Normal Population <130 Patients with medical conditions: CHD/DM Optimal: <100 Borderline high: 130-159 High: 160-189 Very high: >189 9 Updated reference range on new analyzer 10 Updated reference range on new analyzer 11 Concerning GFR Guidelines for Americans: Normal function or mild renal disease, if clinically at risk: >/=60 mL/min Moderately decreased: 30-59 Severely decreased: 15-29 Renal failure: <15 12 Concerning GFR Guidelines: Normal function or mild [...] drugs that are excreted by the kidneys. 13 Updated Reference Range 14 Per NCEP ATP III Guidelines: Results lower than 40 mg/dL are suggestive of increased risk for coronary artery disease. Results > or=to 60 mg/dL are considered a negative risk factor. 15 Per NCEP ATP III Guidelines: Normal Population <130 Patients with medical conditions: CHD/DM Optimal: <100 Borderline high: 130-159 High: 160-189 Very high: >189 16 SEPSIS/PNEUMONIA 17 Note: Persistent reduction for 3 months or more in an eGFR <60 mL/min/1.73 m2 defines CKD. Patients with eGFR values >/=60 mL/min/1.73 m2 may also have CKD if evidence of persistent proteinuria is present. The original MDRD equation for estimated GFR is not valid for patients less than 18 years of age. Additional information may be found at www.kdoqi.org. 18 Note: Persistent reduction for 3 months or more in an eGFR <60 mL/min/1.73 m2 defines CKD. Patients with eGFR values >/=60 mL/min/1.73 m2 may also have CKD if evidence of persistent proteinuria is present. The original MDRD equation for estimated GFR is not valid for patients less than 18 years of age. Additional information may be found at www.kdoqi.org. 19 Note: Persistent reduction for 3 months or more in an eGFR <60 mL/min/1.73 m2 defines CKD. Patients with eGFR values >/=60 mL/min/1.73 m2 may also have CKD if evidence of persistent proteinuria is present. The original MDRD equation for estimated GFR is not valid for patients less than 18 years of age. Additional information may be found at www.kdoqi.org. 20 Elevated levels of HbA1c suggest the need for more aggressive treatment of glycemia. The [place] [employer] recommends that a primary goal of therapy should be a HbA1c of <7% and that physicians should re-evaluate the treatment regimen in patients with HbA1c values consistently >8%. 21 Presumptive negative for L. pneumophila serogroup 1 antigen in urine, suggesting no recent or current infection. Legionnaires' disease cannot be ruled out since other serogroups and species may also cause disease. 22 URINE, CLEAN CATCH 23 SENT [facility] SOB 24 SEPSIS/PNEUMONIA 25 NO GROWTH: FINAL REPORT 26 NO GROWTH: FINAL REPORT 27 NO GROWTH: FINAL REPORT 28 NO GROWTH: FINAL REPORT 29 This sample is drawn by:[email or web address] 30 Updated reference range on new analyzer 31 Updated reference range on new analyzer 32 Concerning GFR Guidelines for Americans: Normal function or mild renal disease, if clinically at risk: >/=60 mL/min Moderately decreased: 30-59 Severely decreased: 15-29 Renal failure: <15 33 Concerning GFR Guidelines: Normal function or mild [...] drugs that are excreted by the kidneys. 34 Updated Reference Range 35 Per NCEP ATP III Guidelines: Results lower than 40 mg/dL are suggestive of increased risk for coronary artery disease. Results > or=to 60 mg/dL are considered a negative risk factor. 36 Per NCEP ATP III Guidelines: Normal Population <130 Patients with medical conditions: CHD/DM Optimal: <100 Borderline high: 130-159 High: 160-189 Very high: >189 37 This sample is drawn by:[email or web address] 38 Updated reference range on new analyzer 39 Updated reference range on new analyzer 40 Concerning GFR Guidelines for Americans: Normal function or mild renal disease, if clinically at risk: >/=60 mL/min Moderately decreased: 30-59 Severely decreased: 15-29 Renal failure: <15 41 Concerning GFR Guidelines: Normal function or mild [...] drugs that are excreted by the kidneys. 42 Updated Reference Range 43 Per NCEP ATP III Guidelines: Results lower than 40 mg/dL are suggestive of increased risk for coronary artery disease. Results > or=to 60 mg/dL are considered a negative risk factor. 44 Per NCEP ATP III Guidelines: Normal Population <130 Patients with medical conditions: CHD/DM Optimal: <100 Borderline high: 130-159 High: 160-189 Very high: >189 45 Updated reference range on new analyzer 46 Updated reference range on new analyzer 47 Concerning GFR Guidelines for Americans: Normal function or mild renal disease, if clinically at risk: >/=60 mL/min Moderately decreased: 30-59 Severely decreased: 15-29 Renal failure: <15 48 Concerning GFR Guidelines: Normal function or mild [...] drugs that are excreted by the kidneys. 49 Updated Reference Range 50 Per NCEP ATP III Guidelines: Results lower than 40 mg/dL are suggestive of increased risk for coronary artery disease. Results > or=to 60 mg/dL are considered a negative risk factor. 51 Per NCEP ATP III Guidelines: Normal Population <130 Patients with medical conditions: CHD/DM Optimal: <100 Borderline high: 130-159 High: 160-189 Very high: >189 52 Per NCEP ATP III Guidelines: Results lower than 40 mg/dL are suggestive of increased risk for coronary artery disease. Results > or=to 60 mg/dL are considered a negative risk factor. 53 Per NCEP ATP III Guidelines: Normal Population <130 Patients with medical conditions: CHD/DM Optimal: <100 Borderline high: 130-159 High: 160-189 Very high: >189 54 Updated reference range on new analyzer 55 Updated reference range on new analyzer 56 Concerning GFR Guidelines for Americans: Normal [...] that are excreted by the kidneys. 58 Updated reference range on new analyzer 59 This sample is drawn by: ANA 60 Updated reference range on new analyzer 61 Updated reference range on new analyzer 62 Concerning GFR Guidelines for Americans: Normal [...] that are excreted by the kidneys. 64 Updated reference range on new analyzer 65 This sample is drawn by:ARMIDA 66 Updated reference range on new analyzer 67 Updated reference range on new analyzer 68 Concerning GFR Guidelines for Americans: Normal function or mild renal disease, if clinically at risk: >/=60 mL/min Moderately decreased: 30-59 Severely decreased: 15-29 Renal failure: <15 69 Concerning GFR Guidelines: Normal function or mild [...] drugs that are excreted by the kidneys. 70 Updated reference range on new analyzer 71 Per NCEP ATP III Guidelines: Results lower than 40 mg/dL are suggestive of increased risk for coronary artery disease. Results > or=to 60 mg/dL are considered a negative risk factor. 72 Per NCEP ATP III Guidelines: Normal Population <130 Patients with medical conditions: CHD/DM Optimal: <100 Borderline high: 130-159 High: 160-189 Very high: >189 73 This sample is drawn by: ARMIDA 74 Per NCEP ATP III Guidelines: Results lower than 40 mg/dL are suggestive of increased risk for coronary artery disease. Results > or=to 60 mg/dL are considered a negative risk factor. 75 Per NCEP ATP III Guidelines: Normal Population <130 Patients with medical conditions: CHD/DM Optimal: <100 Borderline high: 130-159 High: 160-189 Very high: >189 76 Updated reference range on new analyzer 77 Updated reference range on new analyzer 78 Concerning GFR Guidelines for Americans: Normal [...] that are excreted by the kidneys. 80 Updated reference range on new analyzer 81 CONSULT 11/08 [id number] S83.272 M71.8 82 Note: Persistent reduction for 3 months or more in an eGFR <60 mL/min/1.73 m2 defines CKD. Patients with eGFR values >/=60 mL/min/1.73 m2 may also have CKD if evidence of persistent proteinuria is present. The original MDRD equation for estimated GFR is not valid for patients less than 18 years of age. Additional information may be found at www.kdoqi.org. 83 This sample is drawn by:ARMIDA 84 Concerning GFR Guidelines for Americans: Normal [...] that are excreted by the kidneys. 86 Per NCEP ATP III Guidelines: Results lower than 40 mg/dL are suggestive of increased risk for coronary artery disease. Results > or=to 60 mg/dL are considered a negative risk factor. 87 Per NCEP ATP III Guidelines: Normal Population <130 Patients with medical conditions: CHD/DM Optimal: <100 Borderline high: 130-159 High: 160-189 Very high: >189 88 Per NCEP ATP III Guidelines: Results lower than 40 mg/dL are suggestive of increased risk for coronary artery disease. Results > or=to 60 mg/dL are considered a negative risk factor. 89 Per NCEP ATP III Guidelines: Normal Population <130 Patients with medical conditions: CHD/DM Optimal: <100 Borderline high: 130-159 High: 160-189 Very high: >189 90 Concerning GFR Guidelines for Americans: Normal function or mild renal disease, if clinically at risk: >/=60 mL/min Moderately decreased: 30-59 Severely decreased: 15-29 Renal failure: <15 91 Concerning GFR Guidelines: Normal function or mild [...] drugs that are excreted by the kidneys. 92 This sample is drawn by:JOHN/DENNIS 93 Concerning GFR Guidelines for Americans: Normal function or mild renal disease, if clinically at risk: >/=60 mL/min Moderately decreased: 30-59 Severely decreased: 15-29 Renal failure: <15 94 Concerning GFR Guidelines: Normal function or mild [...] drugs that are excreted by the kidneys. 95 Per NCEP ATP III Guidelines: Results lower than 40 mg/dL are suggestive of increased risk for coronary artery disease. Results > or=to 60 mg/dL are considered a negative risk factor. 96 Per NCEP ATP III Guidelines: Normal Population <130 Patients with medical conditions: CHD/DM Optimal: <100 Borderline high: 130-159 High: 160-189 Very high: >189 97 This sample is drawn by:ECTOR/ARI 98 Concerning GFR Guidelines for Americans: Normal function or mild renal disease, if clinically at risk: >/=60 mL/min Moderately decreased: 30-59 Severely decreased: 15-29 Renal failure: <15 99 Concerning GFR Guidelines: Normal function or mild [...] drugs that are excreted by the kidneys. 100 Per NCEP ATP III Guidelines: Results lower than 40 mg/dL are suggestive of increased risk for coronary artery disease. Results > or=to 60 mg/dL are considered a negative risk factor. 101 Per NCEP ATP III Guidelines: Normal Population <130 Patients with medical conditions: CHD/DM Optimal: <100 Borderline high: 130-159 High: 160-189 Very high: >189 102 Concerning GFR Guidelines for Americans: Normal function or mild renal disease, if clinically at risk: >/=60 mL/min Moderately decreased: 30-59 Severely decreased: 15-29 Renal failure: <15 103 Concerning GFR Guidelines: Normal function or mild [...] drugs that are excreted by the kidneys. 104 Per NCEP ATP III Guidelines: Results lower than 40 mg/dL are suggestive of increased risk for coronary artery disease. Results > or=to 60 mg/dL are considered a negative risk factor. 105 Per NCEP ATP III Guidelines: Normal Population <130 Patients with medical conditions: CHD/DM Optimal: <100 Borderline high: 130-159 High: 160-189 Very high: >189 106 Concerning GFR Guidelines for Americans: Normal function or mild renal disease, if clinically at risk: >/=60 mL/min Moderately decreased: 30-59 Severely decreased: 15-29 Renal failure: <15 107 Concerning GFR Guidelines: Normal function or mild [...] drugs that are excreted by the kidneys. 108 Per NCEP ATP III Guidelines: Results lower than 40 mg/dL are suggestive of increased risk for coronary artery disease. Results > or=to 60 mg/dL are considered a negative risk factor. 109 Per NCEP ATP III Guidelines: Normal Population <130 Patients with medical conditions: CHD/DM Optimal: <100 Borderline high: 130-159 High: 160-189 Very high: >189 110 Per NCEP ATP III Guidelines: Results lower than 40 mg/dL are suggestive of increased risk for coronary artery disease. Results > or=to 60 mg/dL are considered a negative risk factor. 111 Per NCEP ATP III Guidelines: Normal Population <130 Patients with medical conditions: CHD/DM Optimal: <100 Borderline high: 130-159 High: 160-189 Very high: >189 112 Concerning GFR Guidelines for Americans: Normal function or mild renal disease, if clinically at risk: >/=60 mL/min Moderately decreased: 30-59 Severely decreased: 15-29 Renal failure: <15 113 Concerning GFR Guidelines: Normal function or mild [...] drugs that are excreted by the kidneys. 114 Concerning GFR Guidelines for Americans: Normal function or mild renal disease, if clinically at risk: >/=60 mL/min Moderately decreased: 30-59 Severely decreased: 15-29 Renal failure: <15 115 Concerning GFR Guidelines: Normal function or mild [...] drugs that are excreted by the kidneys. 116 Per NCEP ATP III Guidelines: Results lower than 40 mg/dL are suggestive of increased risk for coronary artery disease. Results > or=to 60 mg/dL are considered a negative risk factor. 117 Per NCEP ATP III Guidelines: Normal Population <130 Patients with medical conditions: CHD/DM Optimal: <100 Borderline high: 130-159 High: 160-189 Very high: >189 118 This sample is drawn by:kd/machine operator cane cutter [employer] This sample is drawn by: kd/machine operator cane cutter [employer] 119 This sample is drawn by:LS/MERCERIZING RANGE FEEDER 120 Concerning GFR Guidelines for Americans: Normal function or mild renal disease, if clinically at risk: >/=60 mL/min Moderately decreased: 30-59 Severely decreased: 15-29 Renal failure: <15 121 Concerning GFR Guidelines: Normal function or mild [...] drugs that are excreted by the kidneys. 122 Per NCEP ATP III Guidelines: Results lower than 40 mg/dL are suggestive of increased risk for coronary artery disease. Results > or=to 60 mg/dL are considered a negative risk factor. 123 Per NCEP ATP III Guidelines: Normal Population <130 Patients with medical conditions: CHD/DM Optimal: <100 Borderline high: 130-159 High: 160-189 Very high: >189 Procedures Date Code Description Status 05/30/2018 [id number] Mammogram Completed 06/02/2016 [id number] Mammogram Completed 07/15/2015 [id number] Electrocardiogram Complete Completed 04/24/2015 [id number] Mammogram Completed 01/22/2015 89133 Admin Of Inj (Therapeutic Phrophylactic Or Diagnostic Completed Subq Inj 05/26/2014 [id number] Mammogram Completed 05/26/2014 [id number] Diabetic Retinal Eye Exam Completed 05/26/2014 [id number] Colonoscopy Completed 05/26/2014 [id number] Bone Mineral Density Test Completed 03/28/2014 [id number] Mammogram Completed Encounters Type Date Location Provider Dx Diagnosis Office Visit 01/30/2019 Aishwarya Delacruz, H60.8x1 Other otitis 10:00a N.P. externa, RIGHT ear H83.03 Labyrinthitis, bilateral Office Visit 12/13/2018 10:00a Aishwarya Delacruz, E11.9 Type 2 diabetes N.P. mellitus without complications E03.9 Hypothyroidism, unspecified E78.00 Pure hypercholesterolemia, unspecified F41.1 Generalized anxiety disorder Z00.00 Encntr for general adult medical exam w/o abnormal findings Z13.31 Encounter for screening for depression Z68.26 Body mass index (BMI) 26.0-26.9, adult Office Visit 12/04/2018 11:45a Aishwarya Delacruz, N.P. R53.83 Other fatigue J44.9 Chronic obstructive pulmonary disease, unspecified Z13.31 Encounter for screening for depression Office Visit 09/11/2018 9:30a Aishwarya Delacruz, E11.9 Type 2 diabetes N.P. mellitus without complications E03.9 Hypothyroidism, unspecified F41.1 Generalized anxiety disorder Office Visit 06/07/2018 10:00a Aishwarya Delacruz, Z00.00 Encntr for general N.P. adult medical exam w/o abnormal findings E11.9 Type 2 diabetes mellitus without complications E78.00 Pure hypercholesterolemia, unspecified E03.9 Hypothyroidism, unspecified Office Visit 03/02/2018 10:00a Aishwarya Delacruz E11.9 Type 2 diabetes N.P. mellitus without complications E78.00 Pure hypercholesterolemia, unspecified E03.9 Hypothyroidism, unspecified F41.1 Generalized anxiety disorder Office Visit 01/12/2018 10:45a Aishwarya Delacruz, S50.11xA Contusion of RIGHT N.P. forearm, initial encounter M79.605 Pain in LEFT leg Office Visit 12/05/2017 1:30p Aishwarya Delacruz, J20.9 Acute bronchitis, N.P. unspecified Office Visit 11/24/2017 9:30a Aishwarya Delacruz, E78.00 Pure N.P. hypercholesterolemia , unspecified E03.9 Hypothyroidism, unspecified E11.9 Type 2 diabetes mellitus without complications F41.1 Generalized anxiety disorder J06.9 Acute upper respiratory infection, unspecified Office Visit 08/25/2017 Carlos Cheung, E78.00 Pure hypercholesterolemia, 9:00a Latashahelny, N.P. unspecified E03.9 Hypothyroidism, unspecified E11.9 Type 2 diabetes mellitus without complications F41.1 Generalized anxiety disorder Office Visit 05/25/2017 9:30a Aishwarya Delacruz, E11.9 Type 2 diabetes N.P. mellitus without complications E03.9 Hypothyroidism, unspecified E78.00 Pure hypercholesterolemia, unspecified F41.1 Generalized anxiety disorder Office Visit 05/15/2017 10:00a Aishwarya Delacruz, R23.8 Other skin changes N.P. Office Visit 02/21/2017 9:00a Aishwarya Delacruz, E11.9 Type 2 diabetes N.P. mellitus without complications E03.9 Hypothyroidism, unspecified F41.1 Generalized anxiety disorder Z00.8 Encounter for other general examination Office Visit 02/06/2017 9:45a Aishwarya Delacruz, D18.01 Hemangioma of skin N.P. and subcutaneous tissue Office Visit 11/21/2016 10:15a Aishwarya Delacruz, E11.9 Type 2 diabetes N.P. mellitus without complications E03.9 Hypothyroidism, unspecified E78.00 Pure hypercholesterolemia, unspecified F41.1 Generalized anxiety disorder Office Visit 09/09/2016 11:00a Aishwarya Delacruz, J01.00 Acute maxillary N.P. sinusitis, unspecified H66.002 Acute suppr otitis media w/o spon rupt ear drum, LEFT ear R05 Cough Office Visit 08/23/2016 10:30a Aishwarya Delacruz, E11.9 Type 2 diabetes N.P. mellitus without complications E03.9 Hypothyroidism, unspecified E78.00 Pure hypercholesterolemia, unspecified F41.1 Generalized anxiety disorder Office Visit 07/13/2016 10:00a Aishwarya Delacruz, R23.8 Other skin changes N.P. R05 Cough Z28.21 Immunization not carried out because of patient refusal Office Visit 07/05/2016 1:30p Aishwarya Delacruz R23.8 Other skin changes N.P. F41.1 Generalized anxiety disorder Office Visit 05/26/2016 8:30a Aishwarya Delacruz, E11.9 Type 2 diabetes N.P. mellitus without complications F41.1 Generalized anxiety disorder M71.20 Synovial cyst of popliteal space [Garcia], unspecified knee Office Visit 04/26/2016 1:45p Aishwarya Delacruz, B37.83 Candidal cheilitis N.P. M71.20 Synovial cyst of popliteal space [Garcia], unspecified knee Office Visit 02/25/2016 8:30a Aishwarya Delacruz, E03.9 Hypothyroidism, N.P. unspecified E11.9 Type 2 diabetes mellitus without complications E78.0 Pure hypercholesterolemia Office Visit 11/24/2015 9:30a Aishwarya Delacruz, R23.8 Other skin changes N.P. F41.1 Generalized anxiety disorder Office Visit 08/18/2015 9:45a Aishwarya Delacruz, E11.9 Type 2 diabetes N.P. mellitus without complications F41.1 Generalized anxiety disorder E03.9 Hypothyroidism, unspecified Office Visit 07/15/2015 9:30a Aishwarya Delacruz, F41.1 Generalized anxiety N.P. disorder R42 Dizziness and giddiness Office Visit 05/05/2015 10:45a Aishwarya Delacruz, 250.00 Diabetes Mellitus N.P. W/O Compl Type II Or Unspec Controlled 272.0 Hypercholesterolemia Pure 244.9 Hypothyroidism Other Unspec 300.02 Anxiety Disorder Generalized Office Visit 02/04/2015 8:45a Aishwarya Delacruz, 782.9 Skin & Integumentary N.P. Tissue Other Symptoms Office Visit 01/29/2015 10:45a Aishwarya Delacruz, 782.9 Skin & Integumentary N.P. Tissue Other Symptoms Office Visit 01/22/2015 8:00a Aishwarya Delacruz, V04.89 Need For Prophylactic N.P. Vaccination & Inoculation Other Virus 300.02 Anxiety Disorder Generalized 250.00 Diabetes Mellitus W/O Compl Type II Or Unspec Controlled 272.0 Hypercholesterolemia Pure V06.1 Sdthwfwsqc-Glxpwwt-Pjvmetjk Combined (DTaP) Office Visit 11/19/2014 8:00a Aishwarya Delacruz, 300.02 Anxiety Disorder N.P. Generalized 244.9 Hypothyroidism Other Unspec Office Visit 10/20/2014 8:45a Aishwarya Delacruz, 250.00 Diabetes Mellitus N.P. W/O Compl Type II Or Unspec Controlled 244.9 Hypothyroidism Other Unspec 272.0 Hypercholesterolemia Pure Office Visit 08/07/2014 3:15p Aishwarya Delacruz, 300.02 Anxiety Disorder N.P. Generalized 250.00 Diabetes Mellitus W/O Compl Type II Or Unspec Controlled 244.9 Hypothyroidism Other Unspec Office Visit 07/28/2014 2:45p Aishwarya Delacruz, 250.00 Diabetes Mellitus N.P. W/O Compl Type II Or Unspec Controlled 244.9 Hypothyroidism Other Unspec 300.02 Anxiety Disorder Generalized Office Visit 07/23/2014 9:00a Aishwarya Delacruz, 250.00 Diabetes Mellitus N.P. W/O Compl Type II Or Unspec Controlled 244.9 Hypothyroidism Other Unspec Office Visit 06/25/2014 8:15a Aishwarya Delacruz, 300.02 Anxiety Disorder N.P. Generalized 250.00 Diabetes Mellitus W/O Compl Type II Or Unspec Controlled 272.0 Hypercholesterolemia Pure Office Visit 06/23/2014 9:00a Carlos Cheung, 272.0 Hypercholesterolemia Pure Aishwarya, N.P. 250.00 Diabetes Mellitus W/O Compl Type II Or Unspec Controlled 244.9 Hypothyroidism Other Unspec Office Visit 06/04/2014 11:00a Aishwarya Delacruz, 912.4 Injury Superficial N.P. Insect Bite Shlder & Up Arm Nonven No Inf Office Visit 05/26/2014 10:30a Aishwarya Delacruz, 250.00 Diabetes Mellitus N.P. W/O Compl Type II Or Unspec Controlled 244.9 Hypothyroidism Other Unspec 530.81 Esophageal Reflux 727.43 Ganglion Unspec Plan of Treatment Future Appointment(s):03/12/2019 7:15 am - Nurses Schedule Carlos at [id number] 10:00 am - Aishwarya Cheung, N.P. at [id number]/25/2019 - Aishwarya Cheung, N.P.S10.86xA Insect bite of other specified part of neck, initial encounterComments:apply steroid cream to areas of itchy bites and recport non- resolution or worseningAllNew Medication:Fluocinonide 0.05 % - apply sparingly to itchy rash three times a dayFluticasone Propionate 0.05 % - apply to affected area of neck as directed bid
--- OUTSIDE RECORDS SUMMARY | 2019-02-26 15:54 | XMS REPORT | Continuity of Care Document ---
:1945 Author Organization [facility] Care Team Providers Name Role Phone ANTHONY SPARKS Primary Care Physician Allergies and Intolerances No Allergy Data in the System Medications No Known Medications Problems No Data in the system Procedures No data in the system Results No data in the system Social History Code Code System Social History Observation Description Dates Observed [id number] SNOMED CT Current Smoking Status Former smoker UNK AdministrativeGender Sex Assigned At Unknown Vital Signs No data in the system Goals Section No data in the system Health Concerns No data in the systemEncounter Diagnosis Date Code Code System Diagnosis Status J44.9 ICD10 COPD UNSPECIFIED Active Advance Directives No Data in the System Family History No data in the system Functional Status No data in the system Immunizations No data in the system Medical Equipment No data in the system Mental Status No data in the system Assessment and Plan Assessments No data in the systemPlan Of Treatment No data in the systemPending Tests No data in the system Hospital Discharge Instructions No data in the system Reason for Visit Reason for Visit PFT
--- OUTSIDE RECORDS SUMMARY | 2019-02-26 15:54 | XMS REPORT | Continuity of Care Document ---
:1945 Author Organization [facility] Care Team Providers Name Role Phone ANTHONY SPARKS Primary Care Physician Allergies and Intolerances No Allergy Data in the System Medications No Known Medications Problems No Data in the system Procedures No data in the system Results No data in the system Social History Code Code System Social History Observation Description Dates Observed [id number] SNOMED CT Current Smoking Status Former smoker [...]
--- OUTSIDE RECORDS SUMMARY | 2019-02-26 15:55 | XMS REPORT | Continuity of Care Document ---
:1945 External Reference #:[id number] Author Name Aishwarya Cheung N.P. Address [address] [facility] [place] [address] Care Team Providers Name Role Phone Aishwarya Cheung N.P. Care Team Information Purification Director Unavailable Payers Date Identification Numbers Payment Provider Subscriber Effective: Policy Number: [id number] [employer] / [employer] [place] 2018 Options PayID: [id number] [address] [address] [place] [address] Problems Active Problems Provider Date Pure hypercholesterolemia Aishwarya Cheung, N.P. Onset: 05/26/2014 Hypothyroidism Aishwarya Cheung, N.P. Onset: 05/26/2014 Type 2 diabetes mellitus Onset: 11/19/2014 Gastroesophageal reflux disease Aishwarya Cheung, N.P. Onset: 02/25/2016 Anxiety Aishwarya Cheung, N.P. Onset: 05/26/2016 Pneumonia Aishwarya Cheung, N.P. Onset: 06/26/2018 Family History Date Family Member(s) Observation Comments Father Diabetes, Adult Father due to [place] () Mother Diabetes, Adult Mother due to Heart Disease () Mother Pacemaker Mother due to Diabetes () First Son Diabetes, Adult First Brother due to Diabetes () Second Brother [place] First Sister due to Diabetes () Second [...] Medications SIG Qnty Indications Ordering Date Provider Meclizine HCL 1-2 three times a 15tabs [place], 01/30/2019 12.5mg day as needed for Mashelle, N.P. Tablets dizziness Ofloxacin (Otic) 4 drops RIGHT ear 5ml [place], 01/30/2019 0.3% every day x 5 Mashelle, N.P. Solution days Shingrix [place], 06/07/2018 50mcg Suspension Alexle, N.P. Rec Ibuprofen 1 by mouth two 30tabs [place], 01/12/2018 800mg Tablets times a day with Masanyle, N.P. food prn pain Loratadine take one tablet 30tabs [place], 02/21/2017 10mg Tablets by mouth every Mashelle, N.P. day Janumet XR Take One Tablet 30tabs [place], 09/24/2015 50-500mg By Mouth Every Alexle, N.P. Tablets ER 24HR Day Alprazolam 1 by mouth three 90tabs [place], 08/18/2015 0.5mg Tablets times a day as Masanyle, N.P. needed anxiety Levothyroxine Sodium take one tablet 90tabs [place], 10/21/2014 by mouth every Alexle, N.P. 88mcg Tablets day on empty stomach Omeprazole 1 by mouth every 30caps [place], 05/26/2014 40mg Capsules day Aishwarya, N.P. Aspirin 1 by mouth every [place], 05/26/2014 81mg Chewtabs day Alexle, N.P. Multi Vitamin Daily [place], 05/26/2014 Mashelle, N.P. Tablets Proventil HFA 2 puffs four Unknown 108(90Base) times a day as mcg/Act Aerosol needed Spiriva Respimat 2 puffs every day Unknown 2.5mcg/Act Aerosol History Medications Zithromax Z-Leonard as directed 1tabs Aishwarya Cheung, [...] 02/25/2016 Tablets Onglyza Take One Tablet 30tabs Aishwarya Cheung, 10/31/2014 - 5mg Tablets By Mouth Every N.P. 09/24/2015 Day Tradjenta 1 by mouth every 30tabs Aishwarya Cheung, 10/21/2014 - 5mg Tablets day N.P. 10/31/2014 Anaprox DS 1 by mouth every 30tabs Aishwarya Cheung, 10/20/2014 - 550mg Tablets 12 hour with food N.P. 05/05/2015 Zithromax Z-Leonard as directed 1tabs Aishwarya Cheung, 10/20/2014 - 250mg N.P. 11/19/2014 Tablets Metformin HCL ER Take One Tablet 100tabs [...] Code Status Date Vaccine Reaction Lot # [id number] Given 05/18/2018 Fluzone Highdose Age 65 And Over Preservative & Antibiotic Free [id number] Given 05/01/2017 Influenza Vac, Quadrivalent, Split, 0.5mL Dosage, Im Use 49250 Given 04/29/2017 Influenza Vac, Quadrivalent, Split, 0.5mL Dosage, Im Use Q2038 Given 05/02/2016 Fluzone Trivalent Immunization KMV GAVE Q2038 Given 05/04/2015 Fluzone Trivalent Immunization 51169 Given 01/22/2015 Tdap (Adacel) Ages 7 And Above Only [id number] 93235 Given 06/26/2014 Pneumococcal 23 Immunization Adult Or [id number] Immunosuppressed Patient 73520 Given 05/09/2014 Afluria Or Fluvirin Flu Vac Intramuscular 88408 Given 07/09/2007 Pneumococcal 23 Immunization Adult Or Immunosuppressed Patient 91439 Given 02/21/2007 Prevnar 13 Pneumococal Conjugate Vaccine [id number] Refused 06/26/2018 Shingrix (Shingles) Zoster Vaccine HZV, Recombinant , Subunit, Adj Vital Signs Date Vital Result Comment 01/30/2019 9:51am Body Temperature 98.1 F Weight [...] [facility] TSH 1.85 uIU/mL 0.35-4.94 [facility]11[facility]2018 [facility] 199 mg/dL 50-199 Triglycerides 257 mg/dL High 30-200 HDL 41 mg/dL 35-85 7 Chol/ HDL Ratio 4.9 ratio 3.7-5.6 VLDL 51 mg/dL High 2-29 LDL (Calc) 107 mg/dL High 20-99 8 Laboratory test finding 09/06/2018 [facility] TSH 1.52 uIU/mL 0.35-4.94 Comprehensive Met Panel-[facility] 09/06/2018 [facility] Sodium 142 mmol/L 135- 146 9 Potassium [...] Gap 7 mmol/L 5-15 13 Lipid 09/06/2018 [place] Cholesterol 214 mg/dL High 50-199 Triglycerides 308 mg/dL High 30-200 HDL 40 mg/dL 35-85 14 Chol/ HDL Ratio 5.3 ratio 3.7-5.6 VLDL 62 mg/dL High 2-29 LDL (Calc) 112 mg/dL High 20-99 15 Hemoglobin A1c 09/06/2018 [place] Hemoglobin A1c 7.2 % High 4.1-5.9 Estimated Average Glucose Calc 160 mg/dL High 71-140 CBC 06/16/2018 [facility] White Blood Count 12.2 K/uL [...] fL Low 8.9-12.4 Basic Metabolic Panel 06/16/2018 [facility] Glucose 147 mg/dL High 74-106 [...] Calcium 8.4 mg/dL Low 8.5-10.1 CBC 06/15/2018 [facility] White Blood Count 9.3 K/uL N [...] fL N 8.9-12.4 Basic Metabolic Panel 06/15/2018 [facility] Glucose 196 mg/dL High 74-106 (315)- - [...] mg/dL N 8.5-10.1 Basic Metabolic Panel 06/14/2018 [facility] Glucose 302 mg/dL High 74-106 [...] 8.9 mg/dL N 8.5-10.1 Glycohemoglobin A1c 06/14/2018 [facility] Glycohemoglobin 6.6 % High 4.2-6.3 20 (315)- - (A1c) eAG 143 mg/dL CBS W/Automated Diff 06/14/2018 [facility] White Blood 7.7 K/uL N 3.1-10.7 (315)- [...] 40.4-72.8 Lymph % 7.8 % Low 20.0-42.0 [place] % 4.4 % N 4.3-13.2 Eo% 0.1 % N 0.0-6.6 Bas% 0.3 % N 0.0-1.1 Neut# 6.75 K/uL N 1.8-7.0 Lymph # 0.60 K/uL Low 1.0-4.0 [place] # 0.34 K/uL N 0.3-0.9 Eos # 0.01 K/uL N 0.0-0.5 Baso # 0.02 K/uL N 0.0-0.1 Laboratory test 06/13/2018 [facility] Legionella Negative Negative 21 finding (315)- - Urinary Antigen Urinalysis With 06/13/2018 [facility] Urine Color YELLOW Yellow Microscopic (315)- - Urine Clarity SL CLOUDY Clear Urine Glucose - Dipstick 250 mg/dL High Negative Urine Bilirubin - Dipstick NEGATIVE Negative Urine Ketone TRACE mg/dL High Negative Urine Specific [place] >=1.030 N 1.010-1.030 Urine Blood MODERATE Abnormal [...] CAT <SEE NOTE> 22 Lactic Acid 06/13/2018 [facility] Lactic Acid 1.2 mmol/L N 0.4-1.9 23 (315)- - Lab Reflex >2.0 for Sepsis? Y Blood Culture 06/13/2018 [facility] Blood Culture NO GROWTH: 24, 25 (315)- - Aerobic FINAL <SEE NOTE> Blood Culture Anaerobic NO GROWTH: FINAL <SEE NOTE> 26 Blood Culture 06/13/2018 [facility] Blood Culture NO GROWTH: FINAL 27 (315)- - Aerobic <SEE NOTE> Blood Culture Anaerobic NO GROWTH: FINAL <SEE NOTE> 28 Hemoglobin A1c 06/04/2018 [place] Hemoglobin A1c 6.4 % High 4.1-5.9 29 Estimated Average Glucose Calc 137 mg/dL 71-140 Comprehensive Met Panel-[facility] 06/04/2018 [place] Sodium 143 mmol/L 135- 146 30 Potassium [...] 0.82 uIU/mL 0.35-4.94 finding Hemoglobin A1c 03/02/2018 [facility] Hemoglobin A1c 6.5 % High 4.1-5.9 37 [...] mmol/L 5-15 42 Laboratory test finding 02/26/2018 [facility] TSH 2.37 uIU/mL 0.35-4.94 Lipid 02/26/2018 [place] Cholesterol 235 mg/dL High 50-199 Triglycerides 198 mg/dL 30-200 HDL 46 mg/dL 35-85 43 Chol/ HDL Ratio 5.1 ratio 3.7-5.6 VLDL 40 mg/dL High 2-29 LDL (Calc) 149 mg/dL High 20-99 44 Comprehensive Met Panel-[facility] 11/21/2017 [facility] Sodium 146 mmol/L 135- 146 45 Potassium [...] 8 mmol/L 5-15 49 Hemoglobin A1c 11/21/2017 [facility] Hemoglobin A1c 6.7 % High 4.1-5.9 Estimated Average Glucose Calc 146 mg/dL High 71-140 Laboratory test finding 11/21/2017 [facility] TSH 0.89 uIU/mL 0.35-4.94 Lipid 11/21/2017 [place] Cholesterol 208 mg/dL High 50-199 Triglycerides 135 mg/dL 30-200 HDL 48 mg/dL 35-85 50 Chol/ HDL Ratio 4.3 ratio 3.7-5.6 VLDL 27 mg/dL 2-29 LDL (Calc) 133 mg/dL High 20-99 51 Laboratory test finding 08/22/2017 [facility] TSH 1.92 uIU/mL 0.35-4.94 Lipid 08/22/2017 [place] Cholesterol 178 mg/dL 50-199 Triglycerides 144 mg/dL 30-200 HDL 45 mg/dL 35-85 52 Chol/ HDL Ratio 3.9 ratio 3.7-5.6 VLDL 29 mg/dL 2-29 LDL (Calc) 104 mg/dL High 20-99 53 Hemoglobin A1c 08/22/2017 [place] Hemoglobin A1c 6.6 % High 4.1-5.9 Estimated Average Glucose Calc 143 mg/dL High 71-140 [facility] 08/22[facility]2017 [place] Sodium 145 mmol/L 135- 146 [...] 8 mmol/L 7-16 58 BUN 13 mg/dL 6-26 [facility] 05/22/2017 [place] Sodium 143 mmol/L 135- 146 [...] Alt 24 U/L 3-42 Ast 21 U/L 8- [place] Egfr >60 >60 62 Non [place] Egfr >60 >60 63 Anion Gap 10 mmol/L 7-16 64 Hemoglobin A1c 05/22/2017 [facility] Hemoglobin A1c 6.8 % High 4.1-5.9 Estimated [...] Alt 17 U/L 3-42 Ast 18 U/L 8- [place] Egfr >60 >60 68 Non [place] Egfr 57 Low >60 69 Anion Gap 14 mmol/L 7- 70 Lipid Treatment 02/17/2017 [facility] Cholesterol 208 mg/dL High 50-199 Triglycerides 165 mg/dL 30-200 HDL 47 mg/dL 35-85 71 Chol/ HDL Ratio 4.5 ratio 3.7-5.6 VLDL 33 mg/dL High 2-29 LDL (Calc) 128 mg/dL High 20-99 72 Alt 17 U/L 3-42 Ast 18 U/L 8-42 Laboratory test finding 02/17/2017 [facility] TSH 1.55 uIU/mL 0.35-4.94 Laboratory test finding 11/18/2016 [place] TSH 0.44 uIU/mL 0.35-4.94 73 Hepatitis C Virus Antibody NONREACTIVE Nonreactive Microalb/Creat Panel 11/18/2016 [place] Creatinine, Urine 174.3 mg/dL Microalb/Creat Urine 7.06 [...] Gap 15 mmol/L 7-16 80 CBC 11/11/2016 [facility] White Blood Count 6.1 K/uL [...] fL N 8.9-12.4 Basic Metabolic Panel 11/11/2016 [facility] Glucose 122 mg/dL High 74-106 [...] mg/dL N 8.5-10.1 Laboratory test finding [facility] 6.2 % High 4.1- 5.9 83 TSH 2.29 uIU/mL 0.35-4.94 Comprehensive Metabolic (CMP) 08/18/2016 [place] Sodium 140 mmol/L 134- 142 Potassium 4.9 [...] High 2-29 LDL (Calc) 123 mg/dL High 99 87 Laboratory test finding 06/01/2016 [place] Vitamin [...] mg/dL 2-29 LDL (Calc) 116 mg/dL High 89 Comprehensive Metabolic (CMP) 05/23/2016 [place] Sodium [...] 24 U/L 8-42 Anion Gap 12 mmol/L 6- [place] Egfr >60 >60 93 Non [place] Egfr 56 Low >60 94 Laboratory test finding 02/22/2016 [facility] Hemoglobin A1c 6.6 % High 4.1- 5.9 Lipid 02/22/2016 [place] Cholesterol 193 mg/dL 50-199 Triglycerides 193 mg/dL 30-200 HDL 43 mg/dL 35-85 95 Chol/ HDL Ratio 4.5 ratio 3.7-5.6 VLDL 39 mg/dL High 2-29 LDL (Calc) 111 mg/dL High 20-99 96 Laboratory test finding 11/19/2015 [place] [facility] [employer] Hemoglobin A1c 6.3 % High 4.1- 5.9 97 Comprehensive Metabolic 11/19/2015 [place] [employer] Sodium 140 mmol/L 134-142 (CMP) Potassium 4.7 [...] 17 U/L 8-42 Anion Gap 11 mmol/L - Dominga Egfr >60 >60 98 Non Dominga [...] 19 U/L 8-42 Anion Gap 13 mmol/L 6-14 [place] Egfr >60 >60 102 Non Dominga [...] 121 mg/dL High 70-105 BUN 14 mg/dL - Creatinine 0.9 mg/dL 0.5-1.4 Calcium 9.7 mg/dL 8.5-10.2 Total Protein 7.0 g/dL 6.0-8.0 Albumin 4.4 g/dL 3.6-4.9 Globulin 2.6 g/dL 2.0-3.5 A/G Ratio 1.7 Ratio 1.0-2.2 Total Bilirubin 0.7 mg/dL 0.1-1.3 Alkaline Phosphatase 37 U/L 24-140 Alt 16 U/L 3-42 Ast 19 U/L 8-42 Anion Gap 12 mmol/L 6-14 [place] Egfr >60 >60 112 Non Dominga [...] 23 U/L 8-42 Anion Gap 12 mmol/L 6- [place] Egfr >60 >60 114 Non Dominga [...] 1.45 uIU/mL 0.34-5.60 Comprehensive Metabolic (CMP) 06/23/2014 [facility] Sodium 140 mmol/L 134- 142 119 Potassium [...] >60 >60 121 Laboratory test finding 06/23/2014 [facility] TSH 4.45 uIU/mL 0.34-5.60 Lipid 06/23/2014 [facility] Cholesterol 185 mg/dL 50-199 Triglycerides 141 mg/dL 30-200 HDL 43 mg/dL 35-85 122 Chol/ HDL Ratio 4.3 ratio 3.7-5.6 VLDL 28 mg/dL 2-29 LDL (Calc) 114 mg/dL High 20-99 123 CBC With Auto Diff 06/23/2014 [facility] WBC 4.7 K/uL 4.1-11.0 RBC 4.06 M/uL [...] K/uL 0.0-0.3 1 This sample is drawn by:DL/TOWERMAN 2 Updated reference range on new analyzer [...] for more aggressive treatment of glycemia. The [place] [employer] recommends that a primary goal [...] 22 URINE, CLEAN CATCH 23 SENT MY [facility] FOR SOB 24 SEPSIS/PNEUMONIA 25 NO GROWTH: [...] high: >189 37 This sample is drawn by:harjinder/linda 38 Updated reference range on new analyzer [...] range on new analyzer 81 CONSULT 11/08 65911 [id number] S83.272 M71.8 82 Note: Persistent reduction for [...] at [email or web address].org. 83 This sample is drawn by:ECTOR/ARI 84 Concerning GFR Guidelines for Americans: Normal [...] the kidneys. 92 This sample is drawn by:KD/HOME MAKER 93 Concerning GFR Guidelines for Americans: Normal [...] high: >189 118 This sample is drawn by:kd/linda Fastin hours This sample is drawn by: kd/bet taker Fastin hours 119 This sample is drawn by:LS/TOWERMAN 120 Concerning GFR Guidelines for Americans: Normal [...] >189 Procedures Date Code Description Status 05/30/2018 26403101 Mammogram Completed 06/02/2016 [id number] Mammogram Completed 07/15/2015 71720 Electrocardiogram Complete Completed 04/24/2015 [id number] Mammogram Completed 01/22/2015 24360 Admin Of Inj (Therapeutic Phrophylactic Or Diagnostic Completed Subq Inj 05/26/2014 [id number] Mammogram Completed 05/26/2014 [id number] Diabetic Retinal Eye Exam Completed 05/26/2014 [id number] Colonoscopy Completed 05/26/2014 [id number] Bone Mineral Density Test Completed 03/28/2014 [id number] Mammogram Completed Encounters Type Date Location Provider [...] Hypothyroidism, unspecified Office Visit 03/02/2018 10:00a Aishwarya Delacruz, E11.9 Type 2 diabetes [...] respiratory infection, unspecified Office Visit 08/25/2017 Carlos Cheung E78.00 Pure hypercholesterolemia, 9:00a Aishwarya, N.P. unspecified E03.9 Hypothyroidism, unspecified E11.9 Type [...] patient refusal Office Visit 07/05/2016 1:30p Aishwarya Delacruz, R23.8 Other skin changes N.P. [...] Or Unspec Controlled 272.0 Hypercholesterolemia Pure V06.1 Qebaimlhhu-Jpfwfgc-Uswzmnwc Combined (DTaP) Office Visit 11/19/2014 8:00a Aishwarya [...] Future Appointment(s):03/12/2019 7:15 am - Nurses Schedule [place] [id number] 10:00 am - Aishwarya Cheung, N.P. at [id number]/30/2019 - Aishwarya Cheung, N.P.H60.8x1 Other otitis externa, RIGHT earComments:avoid using Qtipsstart ofloxicin otic gtts as directedkeep ears dry adn report non- resolution 3-5 daysH83.03 Labyrinthitis, bilateralComments:meclizine, safety precautions with driving and activityAllNew Medication:Meclizine HCL 12.5 mg - 1 -2 three times a day as needed for dizzinessOfloxacin (Otic) 0.3 % - 4 drops RIGHT ear every day x 5 days
--- NOTE | 2019-02-26 16:04 | ED ---
Neurological HPI - HPI Summary HPI Summary: 73 yr old female with headache in the back of the head on Monday and Monday. She had no neurological deficits and felt like she was functioning normally at 930 pm last night when she went to bed last night. She woke up at 1230 am today to use the bathroom and she had extreme vertigo, and she was very off balance. The symptoms have persisted since then. She is having trouble walking. No change in vision, speech, hearing, swallowing. No focal weakness. No numbness. The patient has had some nausea as well. She has no ear pain. - History of Current Complaint Chief Complaint: UCDizziness Stated Complaint: DIZZY,HEADACHE, NAUSEA Time Seen by Provider: 02/26/19 15:27 Pain Intensity: 5 - Allergy/Home Medications Allergies/Adverse Reactions: Allergies Allergy/AdvReac Type Severity Reaction Status Date / Time albuterol Allergy Agitation Verified 02/26/19 15:34 Penicillins Allergy Unknown Verified 02/26/19 15:34 Reaction Details Sulfa (Sulfonamide Allergy Vomiting Verified 02/26/19 15:34 Antibiotics) grass mowing Allergy Swelling Uncoded 02/26/19 15:34 Of Face,Lips,& Throat Home Medications: Home Medications Fluocinonide 0.05% CREAM(NF) 1 applic TOPICAL TID 02/26/19 [History Confirmed ] Tiotropium [place] [Spiriva Respimat] 4 gm IH DAILY 02/26/19 [History Confirmed 02/26/19] PMH/Surg Hx/FS Hx/Imm Hx Endocrine/Hematology History: Reports: Hx Diabetes, Hx Thyroid Disease - Surgical History Surgery Procedure, Year, and Place: [place]. left knee. hysterectomy Infectious Disease History: No Infectious Disease History: Denies: Traveled Outside the [place] in Last 30 Days - Family History Known Family History: Positive: Hypertension, Diabetes, Other - breast and colon Ca Negative: Cardiac Disease - Social History Occupation: Retired Alcohol Use: Occasionally Alcohol Amount: occ. glass of wine Substance Use Type: Reports: Prescribed Substance Use Comment - Amount & Last Used: xanax Smoking Status (MU): Former Smoker Review of Systems Constitutional: Negative Positive: Headache All Other Systems Reviewed And Are Negative: Yes Physical Exam Triage Information Reviewed: Yes Vital Signs On Initial Exam: Initial Vitals Temp Pulse Resp BP Pulse Ox 98.6 F 80 17 124/56 100 02/26/19 15:30 02/26/19 15:30 02/26/19 15:30 02/26/19 15:30 02/26/19 15:30 Vital Signs Reviewed: Yes Appearance: Positive: Well-Appearing Skin: Positive: Warm Head/Face: Positive: Normal Head/Face Inspection Eyes: Positive: EOMI, NOHELIA ENT: Positive: TMs normal. Negative: Nasal congestion Neck: Positive: Nontender Respiratory/Lung Sounds: Positive: Clear to Auscultation, Breath Sounds Present Cardiovascular: Positive: RRR. Negative: Murmur Abdomen Description: Positive: Nontender. Negative: Distended Musculoskeletal: Positive: Strength/ROM Intact Neurological: Positive: Sensory/Motor Intact, Alert, Oriented to Person Place, Time, CN Intact II-III, Finger to Nose - good, Ataxic Gait Psychiatric: Positive: Normal Diagnostics - Vital Signs Vital Signs Temp Pulse Resp BP Pulse Ox 02/26/19 15:30 98.6 F 80 17 124/56 100 - Laboratory Lab Statement: Any lab studies that have been ordered have been reviewed, and results considered in the medical decision making process. Course/Dx - Course Course Of Treatment: 73 yr old female with vertigo, ataxia and headache prior to onset of neurological symptoms. I have spoken to [facility]. They are awaiting her arrival. - Diagnoses Provider Diagnoses: Vertigo, Headache, Ataxia Discharge - Sign-Out/Discharge Documenting (check all that apply): Patient Departure All imaging exams completed and their final reports reviewed: No Studies - Discharge Plan Condition: Good Disposition: TRANS HIGHER LVL OF CARE FAC Patient Education Materials: Acute Headache (ED), Vertigo (ED) Referrals: Aishwarya Cheung NP [Primary Care Provider] - - Billing Disposition and Condition Condition: GOOD Disposition: Trans Higher Lvl of Care Fac
[2019-02-26 16:17] VITALS: BP 142/50
== END 2019-02-26 16:17 | disposition short-term general hospital (02) ==
LOC: UCCORT 15:20
DX: R42 Dizziness and giddiness (principal); R51 Headache; R27.0 Ataxia, unspecified; E11.9 Type 2 diabetes mellitus without complications; Z87.891 Personal history of nicotine dependence
CPT/HCPCS: 99213; G0463

== ENCOUNTER 2019-04-08 07:20 | Emergency (ER) | payer MEDICARE ==
[2019-04-08 07:44] VITALS: BP 124/62
--- NOTE | 2019-04-08 07:53 | ED ---
Abdominal Pain/Female - HPI Summary HPI Summary: 73 yr old female with the complaint of epigastric pain for about two weeks, 03/13 , non radiating, no NVD. She states she is distended. She has had an appendectomy in the distant past. She quit smoking 9 years ago. Denies ETOH. She also complains of small bruise along the medial right lower leg after banging it. no calf swelling, and no trouble ambulating. - History of Current Complaint Chief Complaint: UCGeneralIllness Stated Complaint: UPSET STOMACH,RT ANKLE INJURY Time Seen by Provider: 04/08/19 07:47 Pain Intensity: 7 Allergies/Adverse Reactions: Allergies Allergy/AdvReac Type Severity Reaction Status Date / Time albuterol Allergy Agitation Verified 04/08/19 07:45 Penicillins Allergy Unknown Verified 04/08/19 07:45 Reaction Details Sulfa (Sulfonamide Allergy Vomiting Verified 04/08/19 07:45 Antibiotics) grass mowing Allergy Swelling Uncoded 04/08/19 07:45 Of Face,Lips,& Throat PMH/Surg Hx/FS Hx/Imm Hx Endocrine/Hematology History: Reports: Hx Diabetes, Hx Thyroid Disease - Surgical History Surgery Procedure, Year, and Place: [facility]. left knee. hysterectomy Infectious Disease History: No Infectious Disease History: Denies: Traveled Outside the [place] in Last 30 Days - Family History Known Family History: Positive: Hypertension, Diabetes, Other - breast and colon Ca Negative: Cardiac Disease - Social History Alcohol Use: Occasionally Alcohol Amount: occ. glass of wine Substance Use Type: Reports: Prescribed Substance Use Comment - Amount & Last Used: xanax Smoking Status (MU): Former Smoker Review of Systems Positive: Abdominal Pain Positive: Other - bruise right medial lower leg All Other Systems Reviewed And Are Negative: Yes Physical Exam Triage Information Reviewed: Yes Vital Signs On Initial Exam: Initial Vitals Temp Pulse Resp BP Pulse Ox 97.3 F 69 16 124/62 98 04/08/19 07:36 04/08/19 07:36 04/08/19 07:36 04/08/19 07:36 04/08/19 07:36 Vital Signs Reviewed: Yes Appearance: Positive: Well-Appearing, No Pain Distress Skin: Positive: Warm Head/Face: Positive: Normal Head/Face Inspection Eyes: Positive: EOMI ENT: Positive: Normal ENT inspection Neck: Positive: Nontender Respiratory/Lung Sounds: Positive: Clear to Auscultation, Breath Sounds Present Cardiovascular: Positive: RRR. Negative: Murmur Abdomen Description: Positive: Distended - upper half of abdomen with firm mass. Mild tenderness Musculoskeletal: Positive: Strength/ROM Intact Neurological: Positive: Sensory/Motor Intact, Alert, Oriented to Person Place, Time, CN Intact II-III Psychiatric: Positive: Normal Diagnostics - Vital Signs Vital Signs Temp Pulse Resp BP Pulse Ox 04/08/19 07:36 97.3 F 69 16 124/62 98 - Laboratory Lab Statement: Any lab studies that have been ordered have been reviewed, and results considered in the medical decision making process. Abdominal Pain Fem Course/Dx - Course Course Of Treatment: 73 yr old with epigastric abdominal pain. She is driving herself to the ER. She states she is comfortable driving. - Diagnoses Provider Diagnoses: Epigastric abdominal pain, Traumatic ecchymosis of right lower leg Discharge - Sign-Out/Discharge Documenting (check all that apply): Patient Departure All imaging exams completed and their final reports reviewed: No Studies - Discharge Plan Condition: Good Disposition: HOME-RECOMMEND TO ED Patient Education Materials: Acute Abdominal Pain (ED) Referrals: Aishwarya Cheung NP [Primary Care Provider] - Additional Instructions: YOU NEED TO GO TO THE ER NOW AFTER LEAVING HERE. DO NOT DELAY. YOU HAVE BEEN OFFERED AN AMBULANCE BUT HAVE SAID YOU WILL DRIVE YOURSELF NOW. - Billing Disposition and Condition Condition: GOOD Disposition: Home-Recommend to ED
== END 2019-04-08 08:00 | disposition home health service (06) ==
LOC: UCCORT 07:20
DX: R10.13 Epigastric pain (principal); S80.11XA Contusion of right lower leg, initial encounter; W22.8XXA Striking against or struck by other objects, initial encounter; Y92.9 Unspecified place or not applicable; E11.9 Type 2 diabetes mellitus without complications; Z87.891 Personal history of nicotine dependence
CPT/HCPCS: 99212; G0463